=== PATIENT | male | born 1975 | race Caucasian/White ===

== ENCOUNTER 2019-05-05 06:15 | Emergency (ER) | payer BC, SELFPAY ==
[2019-05-05 06:16] VITALS: BP 137/103; PULSE 71; RESP 18; TEMP 36.3; O2SAT 98; BMI 29.5
--- NOTE | 2019-05-05 06:56 | CT_ITS ---
STUDY: CT ABDOMEN AND PELVIS WITHOUT CONTRAST REASON FOR EXAM: Male, 44 years old. Left flank pain radiating to left lower quadrant. RADIATION DOSAGE (If Supplied By Facility): CTDIvol = ( 11.42 ) mGy, DLP = ( 610.37 ) mGycm TECHNIQUE: Transaxial images were obtained from the dome of the diaphragm to the symphysis pubis without oral contrast, and without intravenous contrast. Sagittal and coronal images were reconstructed. Individualized dose optimization techniques were used for this CT. COMPARISON: None. FINDINGS: The visualized lung bases are unremarkable. The visualized portions of the heart are within normal limits. Normal liver. The portal vein diameter is 14.5 mm. A pair of 1 cm calcified stones are noted in the gallbladder. No thickening of the gallbladder wall nor pericholecystic fluid to suggest cholecystitis. The common bile duct diameter is 7 mm. There is mild splenomegaly, measuring 14.35 x 3.3 x 12.3 cm. Normal pancreas. Normal bilateral adrenal glands. Normal right kidney. There is mild left pelvocaliectasis due to a 1.4 x 0.65 x 0.95 cm stone at the ureteropelvic junction. Normal visualized stomach. Normal small intestine. Normal colon. The appendix is visualized and appears normal. There is very mild atherosclerotic calcification of the abdominal aorta and proximal iliac arteries, without a demonstrated aneurysm. Normal inferior vena cava. Normal retroperitoneum. Normal urinary bladder. There is a coarse central prostatic calcification. Normal abdominal wall. There are multilevel [id number] degenerative changes of the visualized spine, with anterolateral endplate osteophyte formation most prominent in the mid to lower thoracic levels and at L5-S1. There are well-corticated shallow invaginations of the inferior lumbar vertebral endplates, which may reflect benign Schmorl''s nodes. Benign-appearing focal sclerotic density noted in the superolateral margin of the right femoral head. CT/Abdomen/Pelvis without Cont IMPRESSION: 1. Mild left pelvocaliectasis due to 14 mm stone at the ureteropelvic junction. 2. Gallstones. No CT sign of acute cholecystitis. 3. Mild splenomegaly. 4. The bowel is unremarkable without signs of obstruction. The appendix is normal. Electronically Signed: Gonzales Kuhn MD at 7:41 EST , Service support ,
[2019-05-05] MEDS: Ondansetron 4 MG/2 ML Vial IV (07:06)
[2019-05-05] MEDS: Ketorolac 30 MG/ML Syringe IV (07:06)
[2019-05-05] MEDS: Morphine 4 MG/ML Syringe IV (07:07)
[2019-05-05] MEDS: 0.9% Normal Saline 1,000 ML 999 ML IV (07:07)
--- NOTE | 2019-05-05 07:07 | ED.DCSUM_ITS ---
History of Present Illness Chief Complaint: Flank Pain Informant: Patient - Abdominal Pain/Flank Pain Onset: Today Context: Sudden Onset Timing: Waxes and wanes Quality: Sharp, Stabbing Location: Left Flank Worsened by: Nothing Relieved by: Nothing - Nausea/Vomiting/Emesis GI Symptom: Nausea. Negative for: Vomiting Associated Symptoms: - - dark urine Narrative: Patient is a 44-year-old male with no known medical history presenting with l eft-sided flank pain. He states it woke him up from sleep at 0500. The pain is sharp and radiates into his lower abdomen. It waxes and wanes. Patient states he is never had pain like this before. He does not have a history of kidney stones. He states he has not seen a doctor in years and does not have any known medical diagnosis. Yesterday he was raking leaves and exerting himself significantly. When he was in the ER he urinated his urine was dark brown. Patient denies any other muscle aches or pains. He denies any vomiting but notes he does have nausea when the pain is severe. He denies any chest pain or shortness of breath. He denies any dysuria. Patient notes that a couple weeks ago he had a similar pain but it was just one episode of sharp pain that resolved spontaneously and never came back. Past Medical History - Allergies and Home Meds Allergies/Adverse Reactions: Allergies No Known Allergies Allergy (Verified 05/05/19 06:17) Past Medical History: None Surgical History: no surgical history Lives: Spouse/ Significant Other Smoking Status: Current every day smoker Alcohol: Occasional Drugs: None Review of Systems General: Denies: Chills, Fever, Sweats Eyes: Denies: Visual changes - bilaterally, Diplopia ENT: Denies: Rhinorrhea, Sore throat Cardiovascular: Denies: Chest pain, Palpitations Respiratory: Denies: Dyspnea, Cough, Dyspnea on exertion Gastrointestinal: Reports: Abdominal pain, Nausea. Denies: Vomiting, Diarrhea, Melena, Hematochezia Genitourinary: Denies: Dysuria, Hematuria, Frequency Musculoskeletal: Denies: Back pain, Extremity Pain Skin: Denies: Rash, Wounds Neurological: Denies: Headache, Weakness, Numbness Physical Exam Vital Signs/Narrative: Vital Signs Temp Pulse Resp BP Pulse Ox 05/05/19 06:16 97.3 F L 71 18 137/103 H 98 Inital Vital Signs reviewed: Yes General: Well nourished, Well developed, No Acute Distress Head: Normocephalic, Atraumatic Eyes: Perrl, EOMI ENT: Moist mucous membranes, No rhinorrhea Neck: Supple, Nontender Cardiovascular: Regular rate, Regular rhythm, No murmurs Respiratory: No distress, CTA bilaterally, Chest nontender Abdomen: Soft, Nondistended, Normal bowel sounds, Tender - Left-sided, Hypoactive bowel sounds. Negative for: Guarding, Rebound tenderness Back: Nontender, Normal Inspection, - - No reproducible back tenderness on exam. Negative for: CVA tenderness, Spinal tenderness Extremities: Nontender, No edema Skin: Normal color, No rash Neurological: Alert, Oriented x3, Cranial nerves II-XII grossly intact, Normal Strength, Normal Sensation Psychological: Normal affect, Normal Mood Diagnostic/Tx/Re-eval CT: Flank Clinical Impression(s) from Imaging Studies Abdomen/Pelvis CT 05/05/19 06:56 IMPRESSION: 1. Mild left pelvocaliectasis due to 14 mm stone at the ureteropelvic junction. 2. Gallstones. No CT sign of acute cholecystitis. 3. Mild splenomegaly. 4. The bowel is unremarkable without signs of obstruction. The appendix is normal. Electronically Signed: Gonzales Kuhn MD at 7:41 EST , Service support , Laboratory Data 05/05/19 05/05/19 05/05/19 06:40 06:55 06:55 WBC 11.1 H RBC 5.31 Hgb 16.1 Hct 46.2 MCV 87.0 MCH 30.3 MCHC 34.8 RDW Std Deviation 43.1 RDW Coeff of Brennan 13.6 Plt Count 253 MPV 10.6 Immature Gran % (Auto) 0.600 Neut % (Auto) 60.4 Lymph % (Auto) 23.6 [place] % (Auto) 10.0 Eos % (Auto) 4.7 Baso % (Auto) 0.7 Absolute Neuts (auto) 6.7 Absolute Lymphs (auto) 2.62 Nucleated RBC % 0 Sodium 141 Potassium 3.8 Chloride 111 H Carbon Dioxide 25.0 Anion Gap 5 BUN 21 H Creatinine 0.75 Estim Creat Clear Calc 127.00 Est GFR (MDRD) Af Amer 145 Est GFR (MDRD) Non-Af 120 BUN/Creatinine Ratio 27.9 H Glucose 106 Calcium 8.8 Total Creatine Kinase Urine Color [place] Urine Clarity Cloudy Urine pH 5.0 Ur Specific [place] 1.025 Urine Protein 100 H Urine Glucose (UA) Normal Urine Ketones 5 H Urine Occult Blood 250 H Urine Nitrite Positive H Urine Bilirubin Negative Urine Urobilinogen 1 H Ur Leukocyte Esterase 100 H Urine RBC 10-25 SEEN Urine WBC 5-10 SEEN Ur Squamous Epith Cells 0-5 SEEN Calcium Oxalate Crystal RARE Urine Bacteria 2+ Urine Mucus 2+ 05/05/19 06:55 WBC RBC Hgb Hct MCV MCH MCHC RDW Std Deviation RDW Coeff of Brennan Plt Count MPV Immature Gran % (Auto) Neut % (Auto) Lymph % (Auto) [place] % (Auto) Eos % (Auto) Baso % (Auto) Absolute Neuts (auto) Absolute Lymphs (auto) Nucleated RBC % Sodium Potassium Chloride Carbon Dioxide Anion Gap BUN Creatinine Estim Creat Clear Calc Est GFR (MDRD) Af Amer Est GFR (MDRD) Non-Af BUN/Creatinine Ratio Glucose Calcium Total Creatine Kinase 103 Urine Color Urine Clarity Urine pH Ur Specific [place] Urine Protein Urine Glucose (UA) Urine Ketones Urine Occult Blood Urine Nitrite Urine Bilirubin Urine Urobilinogen Ur Leukocyte Esterase Urine RBC Urine WBC Ur Squamous Epith Cells Calcium Oxalate Crystal Urine Bacteria Urine Mucus - Medical Decision Making Is evaluated for sudden onset of left leg pain. Is consistent with kidney stone with colic. Patient receives of very good pain control with 4 mg IV morphine and Toradol. Stone is quite large at 14 mm. His kidney function is normal. His white blood cell count is 11.1. Urinalysis does show nitrates and some leukoesterase. Because of the potential for an infected stone I did discuss with urology at [facility] as we currently do not have any urology services available. They reviewed the CT as well as information. I felt that as he is otherwise stable appearing with normal vital signs and afebrile he can be discharged home with oral antibiotics and outpatient follow-up tomorrow. Patient has good pain control and if he like this is appropriate. Patient is given first dose of Keflex in the emergency room. Urine culture sent. He is given [facility] for follow-up. He is given medications for pain control. He is counseled the importance of follow-up tomorrow as well as indications to return to the emergency room. Patient is counseled on signs and symptoms requiring return to the emergency room. Patient verbalizes agreement and understand this plan. Patient discharged home in stable and improved condition. ED Disposition - Plan for ED Patient: Disposition: Home or Assisted Living Diagnosis: UTI (urinary tract infection) Instructions: KIDNEY STONE w/ Colic Prescriptions: Tamsulosin HCl [Flomax] 0.4 mg PO DAILY #7 cap Prescription Printed Cephalexin [Keflex] 500 mg PO Q12 #14 cap Prescription Printed Ibuprofen [Motrin] 600 mg PO Q6H PRN PRN #20 tab PRN Reason: Pain/Inflammation Prescription Printed Oxycodone HCl/Acetaminophen [Percocet 5/325] 1 tab PO Q6H PRN PRN 3 Days #12 tab PRN Reason: Pain Prescription Printed Ondansetron [Zofran Odt] 4 mg PO Q8H PRN PRN #10 tab PRN Reason: Nausea Prescription Printed Additional Instructions: Please call Dr. Lowlel Harrell at [facility] tomorrow for same day follow up. Number is [phone]. Let them know that you were diagnosed with a 14 mm left stone with some signs of infection. You are started on antibiotics and told to follow-up the next day. Return to the emergency room with any worsening symptoms including fever. It is very important that you take your antibiotics.
[2019-05-05 07:08] LABS: Absolute Lymphocyte Count 2.62 X10^3/uL (0.83-4.51); Absolute Neutrophil Count 6.7 X10^3/uL (2.0-7.7); Basophil# 0.08 X10^3/uL; Basophil% 0.7 % (0-1); Eosinophil# 0.52 X10^3/uL; Eosinophils% 4.7 % (0-5); Hematocrit 46.2 % (40-54); Hemoglobin 16.1 g/dL (13.0-16.5); Lymphocyte # 2.62 X10^3/ul (4.0); Lymphocyte % 23.6 % (19-41); Mean Corp Hgb Conc 34.8 g/dL (32-36); Mean Corpuscular Hgb 30.3 pg (27.0-32.0); Mean Platelet Vol. 10.6 fl (6.2-12.0); Monocyte# 1.11 X10^3/uL; NRBC Flagged by Analyzer 0 % (0-5); Neutrophil # 6.68 X10^3/uL (2.7-7.7); Neutrophil % 60.4 % (47-70); Platelet Count 253 K/mm3 (150-450); RBC Distribution Width CV 13.6 % (11.6-14.6); RBC Distribution Width SD 43.1 fl (35.1-43.9); Red Blood Count 5.31 M/mm3 (4.6-6.2); White Blood Count 11.1 K/mm3 (4.4-11.0)
[2019-05-05 07:18] LABS: Anion Gap 5 (5-15); BUN 21 mg/dL (7-18); BUN/Creat Ratio 27.9 RATIO (10-20); Calcium,Total 8.8 mg/dL (8.5-10.1); Chloride 111 mmol/L (98-107); Creatinine, Serum 0.75 mg/dL (0.70-1.30); EST Glomerular Filtration Rate 120 mL/min (>60); Est Glom Filt Rate - Afr Amer 145 mL/min (>60); Glucose 106 mg/dL (74-106); Potassium 3.8 mmol/L (3.5-5.1); Sodium Level 141 mmol/L (136-145)
[2019-05-05 07:27] LABS: CPK Total, Creatine Kinase 103 U/L (39-308)
[2019-05-05 07:27] LABS: Color, Urine Amber (Yellow); Glucose, Dipstick Normal (Normal); Ketone-Dipstick 5 mg/dl (Negative); Leukocyte Esterase-Dipstick 100 /ul (Negative); Nitrite-Dipstick Positive (Negative); Occult Blood-Urine 250 /ul (Negative); Protein-Dipstick 100 mg/dl (Negative); Specific Gravity, Urine 1.025 (1.002-1.030); Urine Bilirubin Dipstick Negative (Negative); Urine Clarity Cloudy (Clear); Urine Urobilinogen 1 mg/dl (Normal)
[2019-05-05 07:37] LABS: White Blood Cells 5-10 SEEN /hpf (0-5)
[2019-05-05 07:38] LABS: Bacteria 2+ /hpf (None Seen); Calcium Oxalate Crystals Ur RARE /hpf (<or=2+); Mucous, Urine 2+ /hpf (<or=2+); Red Blood Cells-Urine 10-25 SEEN /hpf (0-5); Squamous Epithelial Cells - UA 0-5 SEEN /hpf (0-5)
[2019-05-05 08:18] VITALS: BP 126/76; PULSE 69; RESP 16; O2SAT 98
--- NOTE | 2019-05-05 08:43 | NURSING ---
DR LEDA KEITH
[2019-05-05] MEDS: Cephalexin 250 MG Capsule 500 MG PO (09:12)
[2019-05-05 09:33] VITALS: BP 130/88; PULSE 70; RESP 16; O2SAT 96
== END 2019-05-05 09:35 | disposition home or self-care (01) ==
PROVIDERS: Emergency Provider Emergency Medicine
DX: N39.0 Urinary tract infection, site not specified (principal); N20.1 Calculus of ureter; R16.1 Splenomegaly, not elsewhere classified; K80.20 Calculus of gallbladder without cholecystitis without obstruction; F17.200 Nicotine dependence, unspecified, uncomplicated; Z79.899 Other long term (current) drug therapy
CPT/HCPCS: 74176; 80048; 81001; 82550; 85025; 87086; 96361; 96374; 96375; 99284; J7030; A4216; J2405

== ENCOUNTER 2021-12-28 20:18 | Emergency (ER) | payer BC, SELFPAY ==
[2021-12-28 20:19] VITALS: BP 135/102; PULSE 82; RESP 18; TEMP 35.8; O2SAT 98; BMI 32.1
[2021-12-28 20:50] LABS: Absolute Lymphocyte Count 2.72 X10^3/uL (0.83-4.51); Absolute Neutrophil Count 7.7 X10^3/uL (2.0-7.7); Basophil# 0.08 X10^3/uL; Basophil% 0.6 % (0-1); Eosinophil# 0.56 X10^3/uL; Eosinophils% 4.5 % (0-5); Hematocrit 47.8 % (40-54); Hemoglobin 16.5 g/dL (13.0-16.5); Lymphocyte # 2.72 X10^3/ul (0.83-4.51); Mean Corp Hgb Conc 34.5 g/dL (32-36); Mean Corpuscular Hgb 30.3 pg (27.0-32.0); Mean Corpuscular Volume 87.7 fL (80-94); Mean Platelet Vol. 10.5 fl (6.2-12.0); Monocyte# 1.23 X10^3/uL; NRBC Flagged by Analyzer 0 % (0-5); Neutrophil # 7.68 X10^3/uL (2.7-7.7); Neutrophil % 62.2 % (47-70); Platelet Count 259 K/mm3 (150-450); RBC Distribution Width CV 13.4 % (11.6-14.6); RBC Distribution Width SD 42.6 fl (35.1-43.9); Red Blood Count 5.45 M/mm3 (4.6-6.2); White Blood Count 12.4 K/mm3 (4.4-11.0)
[2021-12-28 21:04] LABS: Anion Gap 7 (5-15); BUN 22 mg/dL (7-18); BUN/Creat Ratio 25.4 RATIO (10-20); Chloride 107 mmol/L (98-107); Creatinine, Serum 0.86 mg/dL (0.70-1.30); EST Glomerular Filtration Rate 101 mL/min (>60); Est Glom Filt Rate - Afr Amer 122 mL/min (>60); Estimated Creatinine Clearance 101.41 ml/min; Glucose 127 mg/dL (74-106); Potassium 3.7 mmol/L (3.5-5.1); Sodium Level 139 mmol/L (136-145)
[2021-12-28 21:16] LABS: Color, Urine Yellow (Yellow); Glucose, Dipstick Normal (Normal); Ketone-Dipstick 5 mg/dl (Negative); Leukocyte Esterase-Dipstick 25 /ul (Negative); Nitrite-Dipstick Negative (Negative); Occult Blood-Urine 250 /ul (Negative); Protein-Dipstick 15 mg/dl (Negative); Specific Gravity, Urine 1.025 (1.002-1.030); Urine Bilirubin Dipstick Negative (Negative); Urine Clarity Clear (Clear); Urine Urobilinogen 1 mg/dl (Normal)
[2021-12-28 21:31] LABS: Bacteria 1+ /hpf (None Seen); Red Blood Cells-Urine 50-100 SEEN /hpf (0-5); Squamous Epithelial Cells - UA 0-5 SEEN /hpf (0-5); White Blood Cells 0-5 SEEN /hpf (0-5)
[2021-12-28 21:32] LABS: Calcium Oxalate Crystals Ur 1+ /hpf (<or=2+); Mucous, Urine 1+ /hpf (<or=2+)
--- NOTE | 2021-12-28 22:06 | CT_ITS ---
INDICATION: left flank pain EXAMINATION: CT ABDOMEN AND PELVIS WITHOUT CONTRAST - CT Abdomen And Pelvis W/O Contrast Injection TECHNIQUE: Helically acquired images were obtained of the abdomen and pelvis without oral or IV contrast. A radiation dose optimization technique was used for this scan. IV Contrast dosage and agent: None. Oral contrast: None. COMPARISON: 05/05/2019 CT abdomen and pelvis FINDINGS: LOWER CHEST: Lung bases are clear. No cardiomegaly or pericardial effusion. LIVER: Homogeneous. No focal mass. GALLBLADDER AND BILIARY TREE: At least 2 gallbladder stones, the largest of which measures 12 mm, in the collapsed gallbladder No gallbladder distension or wall edema. No intra- or extrahepatic biliary ductal dilation. PANCREAS: No focal cystic or solid mass. SPLEEN: Normal size without focal cystic or solid mass. ADRENAL GLANDS: Left and right adrenal, subcentimeter nodule with macroscopic fat; adrenal adenomas. KIDNEYS, URETERS and BLADDER: Normal renal size and position. No mass. No hydronephrosis. Bladder is unremarkable. No genitourinary stone. PERITONEUM: No ascites or free air. No other fluid collection. BOWEL: No evidence of acute appendicitis. No abnormally distended bowel loops or air fluid levels. No wall thickening or mass. No focal inflammatory changes. LYMPH NODES: No enlarged mesenteric or retroperitoneal lymph nodes. VESSELS: Aorta is non-dilated. Mild atherosclerosis. REPRODUCTIVE ORGANS: Normal size prostate gland with few calcifications. ABDOMINAL WALL: No discrete abdominal or pelvic wall hernia. BONES: No lytic or blastic abnormality. CT/Abdomen/Pelvis without Cont IMPRESSION: Cholelithiasis without cholecystitis. These were present on the prior 2018 CT. No genitourinary stone. Bilateral subcentimeter adrenal adenomas. Electronically Signed: Enio Cordon DO at 23:02 EDT ,
--- NOTE | 2021-12-28 22:09 | EX.ED.GUMALE ---
HPI History of Present Illness Chief Complaint: Abd Pain Narrative Narrative: 46-year-old male presenting with right flank pain. He noted that he had some flank pain earlier in the day which resolved. He later in the day prior to arrival had some sharp flank pain which radiate to the inguinal area. He complains of dysuria and irritation. Patient states his pain is improved currently. He has a history of kidney stones. He has not had fever or chills. No nausea or vomiting. PFSH PFS Medical History Kidney stones Home Medications cephalexin 500 mg capsule 500 mg PO Q12 #14 caps 05/05/19 [Rx Last Taken Unknown] ibuprofen 600 mg tablet 600 mg PO Q6H PRN PRN Pain/Inflammation #20 tabs 05/05/19 [Rx Last Taken Unknown] ondansetron 4 mg disintegrating tablet 4 mg PO Q8H PRN PRN Nausea #10 tabs 05/05/19 [Rx Last Taken Unknown] tamsulosin 0.4 mg capsule 0.4 mg PO DAILY #7 caps 05/05/19 [Rx Last Taken Unknown] hydrocodone-acetaminophen 5-325mg 5mg-325mg 1 tab PO Q6H PRN pain 3 days #10 tabs 12/28/21 [Rx Last Taken Unknown] ondansetron 4 mg disintegrating tablet 4 mg PO Q8H PRN nausea and vomiting #10 tabs 12/28/21 [Rx Last Taken Unknown] Allergy/AdvReac Type Severity Reaction Status Date / Time No Known Allergies Allergy Verified 05/05/19 06:17 Social History Smoking Status: Never smoker ROS ROS ED Constitutional Constitutional ED: Denies chills or fever(s) Eyes Eyes: Denies change in vision ENT ENT ED: Denies rhinorrhea or sore throat Cardiovascular Cardiovascular: Denies chest pain or palpitations Respiratory/Chest Respiratory/Chest: Denies cough or dyspnea Gastrointestinal Gastrointestinal: Reports other Details: Right flank pain Genitourinary Genitourinary ED: Reports dysuria; Denies urinary frequency Musculoskeletal Musculoskeletal: Denies arthralgias Integumentary Denies abscess Neurologic Neurologic: Denies headache(s) Psychiatric Psychiatric: Denies anxiety or depression EXAM Physical Exam Const Vital Signs: 12/28/21 20:19 Temperature 96.5 F L Temperature Source Temporal Pulse Rate 82 Respiratory Rate 18 Blood Pressure 135/102 H Blood Pressure Mean 113 Pulse Ox 98 Oxygen Delivery Method Room Air Positive well nourished General Appearance ED: NAD; Negative for pallor HEENT Reports moist mucous membranes normocephalic and atraumatic Eyes PERRL and EOMs intact bilaterally Resp normal respiratory effort and clear to auscultation bilaterally Auscultation: Negative for rales, rhonchi or wheezes Cardio regular rate and regular rhythm GI non-tender and non-distended no CVA tenderness Neuro oriented x3 and CN's II-XII intact bilaterally Sensorium / Orientation: alert Motor Exam: strength 5/5 throughout Psych mental status grossly normal Thought Process: normal thought process Thought Content: normal thought content Skin General Skin Exam: Negative for jaundice or pallor MDM MDM MDM Narrative Medical decision making narrative: Patient states his pain is improved but he was given morphine, Toradol, Zofran at a concern that his pain come back. CBC shows a slight leukocytosis of 12.4. Hemoglobin medic are stable. Platelets normal. Renal function electrolytes within normal limits. Urinalysis shows occult blood without evidence of infection. CT of the pelvis without contrast does not show any kidney stones. There is some gallstones noted without any evidence of acute cholecystitis. Patient is not having right upper quadrant pain. I suspect patient likely passed his kidney stone. I will cover him with Zofran and [place] as needed for pain as he still continues to have intermittent pain. He is can follow-up with urology. Patient stable for discharge at this time. Impression: 1. Right flank pain 2. Dysuria 3. Hematuria Lab Data Attestation: I reviewed the patient's lab results. Labs: Laboratory Results - last 24 hr 12/28/21 12/28/21 12/28/21 20:29 20:46 20:46 WBC 12.4 H RBC 5.45 Hgb 16.5 Hct 47.8 MCV 87.7 MCH 30.3 MCHC 34.5 RDW Std Deviation 42.6 RDW Coeff of [place] 13.4 Plt Count 259 MPV 10.5 Immature Gran % (Auto) 0.700 Neut % (Auto) 62.2 Lymph % (Auto) 22.0 [place] % (Auto) 10.0 Eos % (Auto) 4.5 Baso % (Auto) 0.6 Absolute Neuts (auto) 7.7 Absolute Lymphs (auto) 2.72 Nucleated RBC % 0 Sodium 139 Potassium 3.7 Chloride 107 Carbon Dioxide 25.0 Anion Gap 7 BUN 22 H Creatinine 0.86 Estim Creat Clear Calc 101.41 Est GFR (MDRD) Af Amer 122 Est GFR (MDRD) Non-Af 101 BUN/Creatinine Ratio 25.4 H Glucose 127 H Calcium 9.0 Urine Color Yellow Urine Clarity Clear Urine pH 5.0 Ur Specific [place] 1.025 Urine Protein 15 H Urine Glucose (UA) Normal Urine Ketones 5 H Urine Occult Blood 250 H Urine Nitrite Negative Urine Bilirubin Negative Urine Urobilinogen 1 H Ur Leukocyte Esterase 25 H Urine RBC 50-100 SEEN Urine WBC 0-5 SEEN Ur Squamous Epith Cells 0-5 SEEN Calcium Oxalate Crystal 1+ Urine Bacteria 1+ Urine Mucus 1+ Radiography Diagnostic Testing: Clinical Impression(s) from Imaging Studies Abdomen/Pelvis CT 12/28/21 22:06 IMPRESSION: Cholelithiasis without cholecystitis. These were present on the prior 2018 CT. No genitourinary stone. Bilateral subcentimeter adrenal adenomas. Electronically Signed: Enio Cordon DO at 23:02 EDT , Discharge Plan Triage Chief Complaint: Abd Pain ED Provider: Isiah Montanez Dx/Rx/DC Orders Instructions: ED Kidney Stone, Passed Prescriptions: New hydrocodone-acetaminophen 5-325 mg tablet 1 tab PO Q6H PRN (Reason: pain) 3 Days Qty: 10 0RF ondansetron 4 mg tablet,disintegrating 4 mg PO Q8H PRN (Reason: nausea and vomiting) Qty: 10 0RF No Action cephalexin 500 MG capsule 500 mg PO Q12 Qty: 14 0RF tamsulosin 0.4 MG capsule 0.4 mg PO DAILY Qty: 7 0RF ondansetron 4 MG tablet 4 mg PO Q8H PRN PRN (Reason: Nausea) Qty: 10 0RF ibuprofen 600 MG tablet 600 mg PO Q6H PRN PRN (Reason: Pain/Inflammation) Qty: 20 0RF Primary Care Provider: Care Physician,No Primary Referrals: Robby Tony MD [Med Staff - Active Staff] - 3-5 Days Care Physician,No Primary [Primary Care Provider] - Disposition Disposition: Home, Self Care
[2021-12-28] MEDS: Ketorolac 15 MG/ML Vial IV (22:22)
[2021-12-28] MEDS: Ondansetron 4 MG/2 ML Vial IV (22:22)
[2021-12-28] MEDS: Morphine 4 MG/ML Syringe IV (22:22)
== END 2021-12-28 23:35 | disposition home or self-care (01) ==
PROVIDERS: Emergency Provider Student in an Organized Health Care Education/Training Program; Visit Provider Student in an Organized Health Care Education/Training Program
DX: R10.9 Unspecified abdominal pain (principal); R30.0 Dysuria; R31.9 Hematuria, unspecified; K80.20 Calculus of gallbladder without cholecystitis without obstruction; Z79.899 Other long term (current) drug therapy; Z87.442 Personal history of urinary calculi
CPT/HCPCS: 74176; 80048; 81001; 85025; 96374; 96375; 99282; A4216; J2405

== ENCOUNTER 2025-02-20 19:33 | Emergency (ER) | payer BC, SELFPAY ==
[2025-02-20 19:34] VITALS: BP 141/90; PULSE 73; RESP 16; TEMP 37; O2SAT 97; BMI 34.2
[2025-02-20 19:50] LABS: Mucous, Urine 0 SEEN /hpf (<or=2+)
[2025-02-20 19:59] LABS: Color, Urine Yellow (Yellow); Glucose, Dipstick Normal (Normal); Ketone-Dipstick Negative (Negative); Leukocyte Esterase-Dipstick 25 /ul (Negative); Nitrite-Dipstick Negative (Negative); Occult Blood-Urine 150 /ul (Negative); Protein-Dipstick 30 mg/dl (Negative); Specific Gravity, Urine 1.030 (1.002-1.030); Urine Bilirubin Dipstick Negative (Negative)
[2025-02-20 20:06] LABS: Hematocrit 47.4 % (40-54); Hemoglobin 16.8 g/dL (13.0-16.5); Immature Granulocytes Count 0.050 X10^3/uL (0.0-0.0); Mean Corp Hgb Conc 35.4 g/dL (32-36); Mean Corpuscular Volume 87.8 fL (80-94); Mean Platelet Vol. 10.4 fl (6.2-12.0); NRBC Flagged by Analyzer 0 % (0-5); Platelet Count 276 K/mm3 (150-450); RBC Distribution Width CV 13.4 % (11.6-14.6); RBC Distribution Width SD 42.7 fl (35.1-43.9); Red Blood Count 5.40 M/mm3 (4.6-6.2); White Blood Count 10.1 K/mm3 (4.4-11.0)
[2025-02-20 20:22] LABS: Red Blood Cells-Urine 5-10 SEEN /hpf (0-5)
[2025-02-20 20:23] LABS: Squamous Epithelial Cells - UA 0-5 SEEN /hpf (0-5)
[2025-02-20 20:24] LABS: Calcium Oxalate Crystals Ur 1+ /hpf (<or=2+)
[2025-02-20 20:39] LABS: AST(SGOT) 25 U/L (<=37); Alanine Aminotransfer ALT/SGPT 41 U/L (<=46); Albumin, Serum 4.7 g/dL (3.5-5.0); Alkaline Phosphatase 82 U/L (40-129); Anion Gap 12 (5-15); BUN 20 mg/dL (4-19); BUN/Creat Ratio 23.6 RATIO (10-20); Calcium,Total 9.4 mg/dL (7.6-11.0); Carbon Dioxide 19.7 mmol/L (21.0-32.0); Chloride 105 mmol/L (98-108); Estimated Creatinine Clearance 117.81 ml/min (50-250); Globulin 2.5 g/dL (2.2-4.2); Glucose 144 mg/dL (70-99); Potassium 4.1 mmol/L (3.3-5.1)
--- OUTSIDE RECORDS SUMMARY | 2025-02-20 20:42 | XMS RPT_ITS | CCD ---
Author Organization [facility] Care Team Providers Care Straight Line Edger Name Role Phone LILIANA CONNER MD Primary Care Physician LILIANA CONNER MD Primary Care Unavailable KENNETH MACDONALD MD Attending Unavailable LILIANA CONNER MD Attending Unavailable LILIANA CONNER MD Primary Care Unavailable LILIANA CONNER MD Attending Unavailable LILIANA CONNER MD Primary Care Unavailable LILIANA CONNER MD Primary Care Unavailable LILIANA CONNER MD Attending Unavailable KENNETH MACDONALD MD Consulting Unavailable KENNETH MACDONALD MD Attending Unavailable LILIANA CONNER MD Primary Care Unavailable LILIANA CONNER MD Primary Care Unavailable LILIANA CONNER MD Attending Unavailable LILIANA CONNER MD Primary Care Unavailable KENNETH MACDONALD MD Attending Unavailable LILIANA CONNER MD Primary Care Unavailable KENNETH MACDONALD MD Consulting Unavailable KENNETH MACDONALD MD Attending Unavailable LILIANA CONNER MD Attending Unavailable LILIANA CONNER MD Primary Care Unavailable Medications Current Medications Medication Drug Class(es) Dates Sig (Normalized) Sig (Original) acetaminophen 325 mg / HYDROcodone bitartrate 5 mg oral tablet (3 sources) Opioid Agonist Start: 10-24-2024 End: 10-31-2024 Fayette 325- 5 mg oral tablet Dose = 1 tab(s), Oral, q4h, PRN Pain, scale 4-6, X 7 day(s), # 12 tab(s), 0 Refill(s), Pharmacy: [facility]/pharmacy #[id number], Acute post-operative pain, 170, cm, 10/24/24 8:32:00 EDT, Height, 95.5, kg, 10/24/24 8:32:00 EDT, Dosing Weight Start Date: 10/24/24 Stop Date: 10/31/24 Status: Ordered Quantity: 12.0 Unit: tab(s) Repeat number: 1 Indications: Other acute postprocedural pain; Start: 06-22-2023 End: 06-27-2023 Fayette 325- 5 mg oral tablet Dose = 1 tab(s), Oral, q4h, PRN Pain, scale 1-6, X 5 day(s), # 12 tab(s), 0 Refill(s), Pharmacy: [facility]/pharmacy #[id number], Acute post-operative pain, 172.7, cm, 06/22/23 6:25:00 EST, Height, 95.4, kg, 06/22/23 6:25:00 EST, Dosing Weight Start Date: 06/22/23 Stop Date: 06/27/23 Status: Ordered Start: 12-28-2021 take 1 tablet by owen th every six hours Hydrocodone-Acetaminophen Active 1 TABLET PO EVERY 6 HOURS 10 December 28, 2021 cephalexin 500 mg oral capsule (1 source) Cephalosporin Antibacterial Start: 05-05-2019 take 500 mg by mouth every twelve hours Cephalexin Active 500 MG PO EVERY 12 HOURS May 05, 2019 1:00am ibuprofen 600 mg oral tablet (1 source) Nonsteroidal Anti-inflammatory Drug Start: 05-05-2019 take 600 mg by mouth every six hours as needed Ibuprofen Active 600 MG PO EVERY 6 HOURS NEEDED May 05, 2019 1:00am ondansetron 4 mg disintegrating oral tablet (2 sources) Serotonin-3 Receptor Antagonist Start: 05-05-2019 take 4 mg by mouth every eight hours Ondansetron Active 4 MG PO Q8H December 28, 2021 12:00am pantoprazole 40 mg delayed release oral tablet (3 sources) Proton Pump Inhibitor Start: 04-11-2023 pantoprazole 40 mg oral enteric coated tablet Dose : 40 mg = 1 tab(s), Oral, qDay, # 30 tab(s), 5 Refill(s), Pharmacy: [facility]/pharmacy #[id number], Abdominal pain Abdominal distention, 173, cm, 03/07/23 15:02:00 EDT, Height, kg, 03/07/23 15:02:00 EDT, Dosing Weight Start Date: 04/11/23 Status: Ordered Start: 03-07-2023 pantoprazole 4 0 mg oral enteric coated tablet Dose : 40 mg = 1 tab(s), Oral, qDay, # 30 tab(s), 0 Refill(s), Pharmacy: [facility]/pharmacy #[id number], Abdominal pain Abdominal distention, 173, cm, 03/07/23 15:02:00 EDT, Height, kg, 03/07/23 15:02:00 EDT, Dosing Weight Start Date: 03/07/23 Status: Ordered sulfamethoxazole 800 mg / trimethoprim 160 mg oral tablet (1 source) Dihydrofolate Reductase Inhibitor Antibacterial, Sulfonamide Antimicrobial Start: 02-07-2025 End: 02-17-2025 take 1 tablet by mouth twice daily Bactrim DS 800 mg-160 mg oral tablet Dose = 1 tab(s), Oral, BID, X 10 day(s), # 20 tab(s), 0 Refill(s), [id number], 170, cm, 02/07/25 15:04:00 EDT, Height, 100.1, kg, 02/07/25 15:04:00 EDT, Dosing Weight Start Date: 02/07/25 Stop Date: 02/17/25 Status: Ordered Medication Dispense Status: Completed Quantity: 20.0 Unit: tab(s) Total Allowed Fills: 1 Fills Dispensed: 0 Indications: Urinary tract infection, site not specified; Hematuria, unspecified; tamsulosin hydrochloride 0.4 mg oral capsule (1 source) alpha-Adrenergic Tyler Start: 05-05-2019 take 0.4 mg by mouth once daily Tamsulosin Active 0.4 MG PO DAILY May 05, 2019 1:00am Completed/Discontinued Medications Medication Drug Class(es) Dates Sig (Normalized) Sig (Original) acetaminophen 325 mg / oxyCODONE hydrochloride 5 mg oral tablet (1 source) Opioid Agonist Start: 05-05-2019 End: 05-15-2019 take 1 tablet by mouth every six hours as needed Oxycodone-Acetamino phen Discontinued 1 TABLET PO EVERY 6 HOURS NEEDED 04 30May 05, 2019 May 15, 2019 1:10am Problems Active Problems Problem Classification Problem Date Documented Da te Episodic/Chronic Abdominal pain (7 sources) Abdominal pain 03-07-2023 Episodic Biliary tract disease (6 sources) Biliary dyskinesia 05-11-2023 Episodic Calculus of urinary tract (8 sources) Renal colic; Translations: [Unspecified renal colic] 03-07-2023 Episodic Esophageal disorders (2 sources) Gastro-esophageal reflux disease without esophagitis; Translations: [Gastro-esophageal reflux disease without esophagitis] Onset: 09-23-2024 Chronic Genitourinary symptoms and ill-defined conditions (3 sources) Blood in urine; Translations: [Unspecified symptoms and signs involving the genitourinary system] Onset: 02-07-2025 02-07-2025 Episodic Nutritional deficiencies (3 sources) Vitamin D deficiency 10-03-2024 Chronic Other gastrointestinal disorders (7 sources) Swollen abdomen 03-07-2023 Episodic Other nervous system disorders (2 sources) Postoperative pain ; Translations: [Other acute postprocedural pain] Onset: 06-22-2023 Episodic Other nutritional; endocrine; and metabolic disorders (4 sources) Obesity 09-13-2024 Chronic Spondylosis; intervertebral disc disorders; other back problems (3 sources) Low back pain 10-03-2024 Episodic Unclassified (6 sources) Patient encounter status 06-13-2023 Urinary tract infections (2 sources) Urinary tract infectious disease; Translations: [Urinary tract infection, site not specified] 02-07-2025 Episodic Past or Other Problems Problem Classification Problem Date Documented Date Episodic/Chronic Hemorrhoids (13 sources) External hemorrhoids; Translations: [Thrombosed hemorrhoids] Onset: 09-23-2024 04-29-2022 Episodic Inflammatory conditions of male genital organs (9 sources) Prostatitis; Translations: [Inflammatory disease of prostate, unspecified] Onset: 09-23-2024 04-29-2022 Episodic Other nervous system disorders (1 source) Other acute postprocedural pain; Translations: [Other acute postprocedural pain] Onset: 10-24-2024 Episodic Results Test Name Value Interpretation Reference Range Facility No Panel Informationon 02-07 Culture Urine No growth at 48 hours. [facility] Final Surgical Pathology Rep santos 10-28-2024 Final Surgical Pathology Report . Pathology Reports Accession: Collected Date/Time: Received Date/Time: Pathologist: [id number] 10/24/2024 10:27 EDT 10/25/2024 08:12 EDT MD ISAIAH HUMMEL Final Surgical Pathology Report DIAGNOSIS: PERIANAL TISSUE, EXCISION: - HEMORRHOID CLINICAL INFORMATION: Procedure: HEMORRHOIDECTOMY Preoperative diagnosis: HEMORRHOIDS Postoperative diagnosis: HEMORRHOIDS SPECIMEN: A HEMORRHOIDS GROSS DESCRIPTION: All parts labelled with patient name and [id number] Received in formalin labelled hemorrhoids Is a maldonado-holliday wrinkled skin excision measuring 2.5 x 2.1 x 1 cm. Excision margin inked black sectioning reveals hemorrhagic cut surfaces with dilated vasculature. RS-1 Alex Rasheed, Pathologists' Clinical Counselor (ASCP) Performed by ALEX RASHEED MICROSCOPIC DESCRIPTION: The microscopic examination is performed, except in the case of Gross Only. Verified by Pathology Report verified by [facility] ISAIAH HUMMEL MD Sign out Date: 10/28/2024 13:27 Performing Lab: [facility], [address] [place] [address] Pathology Dept Disclaimer If ancillary studies were utilized, the following Laboratory Developed Test (LDT) disclaimer will apply: Under CLIA requirements, [facility] Pathology Laboratory is qualified to perform high complexity testing. For all ancillary stains, positive and negative controls stain appropriately. Performance characteristics of immunohistochemical and chromogenic in-situ hybridization tests have been determined by [facility] Pathology Laboratory. These tests are used for clinical purposes, They should not be regarded as investigational or for research. Normal [facility] .Auto Diffon 09-23-2024 Basophil, Absolute 0.1 10 3/mcL Normal 0.0-0.3 [facility] Comment on above: Performed By: #### C MP, ANEU, PSA, ADIFF, VIDH, GFR, A1C, LIPID, CBC #### [address] [address] Basophils/100 WBC (Bld) 1.1 % Normal 0.0-2.5 [facility] Comment on above: Performed By: #### C MP, ANEU, PSA, ADIFF, VIDH, GFR, A1C, LIPID, CBC #### [id number] [place], [place] [address] Eosinophil, Absolute 0.3 10 3/mcL Normal 0.0-0.7 [facility] Comment on above: Performed By: #### C MP, ANEU, PSA, ADIFF, VIDH, GFR, A1C, LIPID, CBC #### [address] [address] Eosinophils/100 WBC (Bld) 3.1 % Normal 0.0-6.0 [facility] Comment on above: Performed By: #### C MP, ANEU, PSA, ADIFF, VIDH, GFR, A1C, LIPID, CBC #### [address] [address] Lymphocyte, Absolute 2.3 10 3/mcL Normal 0.9-4.3 [facility] Comment on above: Performed By: #### C MP, ANEU, PSA, ADIFF, VIDH, GFR, A1C, LIPID, CBC #### [address] [address] Lymphocytes/100 WBC (Bld) 21.9 % Normal 20.0-40.0 [facility] Comment on above: Performed By: #### C MP, ANEU, PSA, ADIFF, VIDH, GFR, A1C, LIPID, CBC #### [address] [address] Monocyte, Absolute 1.1 10 3/mcL Normal 0.1-1.4 [facility] Comment on above: Performed By: #### C MP, ANEU, PSA, ADIFF, VIDH, GFR, A1C, LIPID, CBC #### [address] [address] Monocytes/100 WBC (Bld) 10.2 % Normal 2.0-13.0 [facility] Comment on above: Performed By: #### C MP, ANEU, PSA, ADIFF, VIDH, GFR, A1C, LIPID, CBC #### [address] [address] Neutrophils/100 WBC (Bld) 63.7 % Normal 50.0-75.0 [facility] Comment on above: Performed By: #### C MP, ANEU, PSA, ADIFF, VIDH, GFR, A1C, LIPID, CBC #### [address] [address] .GFRon 09-23-2024 Estimated Glomerular Filtration Rate 106 ml/min/1.73sqm Normal [facility] Comment on above: Result Comment: Stages of Chronic Kidney Disease (CKD) Stage Description eGFR(ml/min/1.73 sq.m.) CKD 1 Normal kidney function or >=90 normal kindney function with possible kidney damage (ex. Proteinuria) CKD 2 Kidney damage with mild loss 60-89 of kidney function CKD 3a Mild to moderate loss of kidney 45-59 function CKD 3b Moderate to severe loss of 30-44 of kindey function CKD 4 Severe loss of kidney function 15-29 CKD 5 Kidney failure <15 Note: (go live 2024) the eGFR calculation was updated to the 2020 CKD-EPI creatinine equation without a race factor to calculate the eGFR results. Performed By: #### C MP, ANEU, PSA, ADIFF, VIDH, GFR, A1C, LIPID, CBC #### [address] [address] .NEUABSon 09-23-2024 Neutrophil, Absolute 6.7 10 3/mcL Normal 2.3-8.1 [facility] Comment on above: Performed By: #### C MP, ANEU, PSA, ADIFF, VIDH, GFR, A1C, LIPID, CBC #### [address] [address] A1Con 09-23-2024 Glucose [Mass/Vol] 111 mg/dL Normal [facility] Comment on above: Result Comment: Yee mated Average Glucose calculated by equation ((28.7xA1C)-46.7) Estimated average glucose (eAG) is a calculated value from Hemoglobin A1C and is automotive sales representative of the average blood glucose level in the last 2-3 month period. Normal range: less than 114 mg/dL Performed By: #### C MP, ANEU, PSA, ADIFF, VIDH, GFR, A1C, LIPID, CBC #### [address] [address] HbA1c (Bld) [Mass fraction] 5.5 % Normal 4.3-6.4 [facility] Comment on above: Performed By: #### C MP, ANEU, PSA, ADIFF, VIDH, GFR, A1C, LIPID, CBC #### [address] [address] CBCon 09-23-2024 Erythrocyte distribution width (RBC) [Ratio] 14.0 % Normal 11.5-15.5 [facility] Comment on above: Performed By: #### C MP, ANEU, PSA, ADIFF, VIDH, GFR, A1C, LIPID, CBC #### [address] [address] Hematocrit (Bld) [Volume fraction] 49.7 % Normal 40.0-52.0 [facility] Comment on above: Performed By: #### C MP, ANEU, PSA, ADIFF, VIDH, GFR, A1C, LIPID, CBC #### [address] [address] Hgb 16.8 G/dL Normal 13.0-17.5 [facility] Comment on above: Performed By: #### C MP, ANEU, PSA, ADIFF, VIDH, GFR, A1C, LIPID, CBC #### [address] [address] MCH (RBC) [Entitic mass] 30.5 pg Normal 27.0-33.0 [facility] Comment on above: Performed By: #### C MP, ANEU, PSA, ADIFF, VIDH, GFR, A1C, LIPID, CBC #### [address] [address] MCHC 33.9 G/dL Normal 32.0-36.0 [facility] Comment on above: Performed By: #### C MP, ANEU, PSA, ADIFF, VIDH, GFR, A1C, LIPID, CBC #### [address] [address] MCV (RBC) [Entitic vol] 89.9 fL Normal 81.0-100.0 [facility] Comment on above: Performed By: #### C MP, ANEU, PSA, ADIFF, VIDH, GFR, A1C, LIPID, CBC #### [address] [address] Platelet 249 10 3/mcL Normal 150-450 [facility] Comment on above: Performed By: #### C MP, ANEU, PSA, ADIFF, VIDH, GFR, A1C, LIPID, CBC #### [address] [address] Platelet mean volume (Bld) [Entitic vol] 9.3 fL Normal 6.4-10.5 [facility] Comment on above: Performed By: #### C MP, ANEU, PSA, ADIFF, VIDH, GFR, A1C, LIPID, CBC #### [address] [address] RBC 5.53 10 6/mcL Normal 4.50-6.00 [facility] Comment on above: Performed By: #### C MP, ANEU, PSA, ADIFF, VIDH, GFR, A1C, LIPID, CBC #### [address] [address] WBC 10.5 10 3/mcL Normal 4.5-10.8 [facility] Comment on above: Performed By: #### C MP, ANEU, PSA, ADIFF, VIDH, GFR, A1C, LIPID, CBC #### [address] [address] CMPon 09-23-2024 Albumin Level 4.6 G/dL Normal 3.5-5.0 [facility] Comment on above: Performed By: #### C MP, ANEU, PSA, ADIFF, VIDH, GFR, A1C, LIPID, CBC #### [address] [address] Albumin/Globulin [Mass ratio] 1.4 {ratio} Normal 1.1-2.5 [facility] Comment on above: Performed By: #### C MP, ANEU, PSA, ADIFF, VIDH, GFR, A1C, LIPID, CBC #### [address] [address] ALP [Catalytic activity/Vol] 87 U/L Normal 40-135 [facility] Comment on above: Performed By: #### C MP, ANEU, PSA, ADIFF, VIDH, GFR, A1C, LIPID, CBC #### [address] [address] ALT [Catalytic activity/Vol] 42 U/L Normal 16-63 [facility] Comment on above: Performed By: #### C MP, ANEU, PSA, ADIFF, VIDH, GFR, A1C, LIPID, CBC #### [address] [address] AST [Catalytic activity/Vol] 18 U/L Normal 10-40 [facility] Comment on above: Performed By: #### C MP, ANEU, PSA, ADIFF, VIDH, GFR, A1C, LIPID, CBC #### [address] [address] Bili Total 0.4 mg/dL Normal 0.2-1.0 [facility] Comment on above: Result Comment: Use of this assay is not recommended for patients undergoing treatment with eltrombopag due to the potential for falsely elevated results. Performed By: #### C MP, ANEU, PSA, ADIFF, VIDH, GFR, A1C, LIPID, CBC #### [address] [address] BUN/Creatinine Ratio 22 ratio Normal 7-27 [facility] Comment on above: Performed By: #### C MP, ANEU, PSA, ADIFF, VIDH, GFR, A1C, LIPID, CBC #### [address] [address] Calcium [Mass/Vol] 9.1 mg/dL Normal 8.4-10.2 [facility] Comment on above: Performed By: #### C MP, ANEU, PSA, ADIFF, VIDH, GFR, A1C, LIPID, CBC #### [address] [address] Chloride [Moles/Vol] 104 mmol/L Normal 98-107 [facility] Comment on above: Performed By: #### C MP, ANEU, PSA, ADIFF, VIDH, GFR, A1C, LIPID, CBC #### [address] [address] CO2 [Moles/Vol] 26 mmol/L Normal 22-29 [facility] Comment on above: Performed By: #### C MP, ANEU, PSA, ADIFF, VIDH, GFR, A1C, LIPID, CBC #### [address] [address] Creatinine [Mass/Vol] 0.87 mg/dL Normal 0.67-1.17 [facility] Comment on above: Performed By: #### C MP, ANEU, PSA, ADIFF, VIDH, GFR, A1C, LIPID, CBC #### [address] [address] Electrolyte Balance 7.0 mEq/L Normal 4.0-15.0 [facility] Comment on above: Performed By: #### C MP, ANEU, PSA, ADIFF, VIDH, GFR, A1C, LIPID, CBC #### [address] [address] Globulin 3.3 G/dL Normal 2.7-4.4 [facility] Comment on above: Performed By: #### C MP, ANEU, PSA, ADIFF, VIDH, GFR, A1C, LIPID, CBC #### [address] [address] Glucose [Mass/Vol] 95 mg/dL Normal 70-105 [facility] Comment on above: Performed By: #### C MP, ANEU, PSA, ADIFF, VIDH, GFR, A1C, LIPID, CBC #### [address] [address] Potassium [Moles/Vol] 4.3 mmol/L Normal 3.5-5.1 [facility] Comment on above: Performed By: #### C MP, ANEU, PSA, ADIFF, VIDH, GFR, A1C, LIPID, CBC #### [address] [address] Sodium [Moles/Vol] 137 mmol/L Normal 136-145 [facility] Comment on above: Performed By: #### C MP, ANEU, PSA, ADIFF, VIDH, GFR, A1C, LIPID, CBC #### [address] [place], [place] [address] Total Protein 7.9 G/dL Normal 6.4-8.2 [facility] Comment on above: Performed By: #### C MP, ANEU, PSA, ADIFF, VIDH, GFR, A1C, LIPID, CBC #### [id number] [place], [place] [address] Urea nitrogen [Mass/Vol] 19 mg/dL High 7-18 [facility] Comment on above: Performed By: #### C MP, ANEU, PSA, ADIFF, VIDH, GFR, A1C, LIPID, CBC #### [id number] [place], [place] [address] LABORATORYOrdered By: SYSTEM SYSTEM on 09-23-2024 25-hydroxyvitamin D3 [Mass/Vol] 19.5 ng/mL Invalid Interpretation Code AO ADM SS Comment on above: Interpretive Data: I nterpretive Values Based on Total 25(OH) Vitamin D: Deficient <20 ng/mL Insufficient 20 - <30 ng/mL Sufficient 30-100 ng/mL Albumin BCP dye [Mass/Vol] 4.6 G/dL Normal 3.5 - 5.0 G/dL AO ADM SS Albumin/Globulin [Mass ratio] 1.4 {ratio} Normal 1.1 - 2.5 ratio AO ADM SS ALP [Catalytic activity/Vol] 87 U/L Normal 40 - 135 U/L AO ADM SS ALT With P-5'-P [Catalytic activity/Vol] 42 U/L Normal 16 - 63 U/L AO ADM SS AST With P-5'-P [Catalytic activity/Vol] 18 U/L Normal 10 - 40 U/L AO ADM SS Basophils (Bld) [#/Vol] 0.1 103/mcL Normal 0.0 - 0.3 10^3/mcL AO Workflow SS Basophils/100 WBC (Bld) 1.1 % Normal 0.0 - 2.5 % AO Workflow SS Bilirubin [Mass/Vol] 0.4 mg/dL Normal 0.2 - 1 .0 mg/dL AO ADM SS Comment on above: Interpretive Data: U se of this assay is not recommended for patients undergoing treatment with eltrombopag due to the potential for falsely elevated results. Calcium [Mass/Vol] 9.1 mg/dL Normal 8.4 - 10. 2 mg/dL AO ADM SS Chloride [Moles/Vol] 104 mmol/L Normal 98 - 10 7 mmol/L AO ADM SS CO2 [Moles/Vol] 26 mmol/L Normal 22 - 29 mmol/L AO ADM SS Creatinine [Mass/Vol] 0.87 mg/dL Normal 0.67 - 1.17 mg/dL AO ADM SS Electrolyte Balance 7.0 mEq/L Normal 4.0 - 15 .0 mEq/L AO ADM SS Eosinophil, Absolute 0.3 103/mcL Normal 0.0 - 0 .7 10^3/mcL AO Workflow SS Eosinophils/100 WBC (Bld) 3.1 % Normal 0.0 - 6.0 % AO Workflow SS Erythrocyte distribution width (RBC) [Ratio] 14.0 % Normal 11.5 - 15.5 % AO Workflow SS Estimated Glomerular Filtration Rate 106 ml/min/1.73sqm Invalid Interpretation Code AO Chemistry S Comment on above: Interpretive Data: Stages of Chronic Kidney Disease (CKD) Stage Description eGFR(ml/min/1.73 sq.m.) CKD 1 Normal kidney function or >=90 normal kindney function with possible kidney damage (ex. Proteinuria) CKD 2 Kidney damage with mild loss 60-89 of kidney function CKD 3a Mild to moderate loss of kidney 45-59 function CKD 3b Moderate to severe loss of 30-44 of kindey function CKD 4 Severe loss of kidney function 15-29 CKD 5 Kidney failure <15 Note: (go live 2024) the eGFR calculation was updated to the 2020 CKD-EPI creatinine equation without a race factor to calculate the eGFR results. Globulin 3.3 G/dL Normal 2.7 - 4.4 G/dL AO ADM SS Glucose [Mass/Vol] 95 mg/dL Normal 70 - 105 mg/dL AO ADM SS Glucose [Mass/Vol] 111 mg/dL Invalid Interpretation Code AO Chemistry S Comment on above: Interpretive Data: E stimated average glucose (eAG) is a calculated value from Hemoglobin A1C and is automotive sales representative of the average blood glucose level in the last 2-3 month period. Normal range: less than 114 mg/dL HbA1c (Bld) [Mass fraction] 5.5 % Normal 4.3 - 6.4 % AO ADM SS Hematocrit (Bld) [Volume fraction] 49.7 % Normal 40.0 - 52.0 % AO Workflow SS Hemoglobin (Bld) [Mass/Vol] 16.8 G/dL Normal 13.0 - 17.5 G/dL AO Workflow SS Lymphocytes (Bld) [#/Vol] 2.3 103/mcL Normal 0.9 - 4.3 10^3/mcL AO Workflow SS Lymphocytes/100 WBC (Bld) 21.9 % Normal 20.0 - 40.0 % AO Workflow SS MCH (RBC) [Entitic mass] 30.5 pg Normal 27.0 - 33.0 pg AO Workflow SS MCHC 33.9 G/dL Normal 32.0 - 36.0 G/dL AO Workflow SS MCV (RBC) [Entitic vol] 89.9 fL Normal 81.0 - 100.0 fL AO Workflow SS Monocytes (Bld) [#/Vol] 1.1 103/mcL Normal 0.1 - 1.4 10^3/mcL AO Workflow SS Monocytes/100 WBC (Bld) 10.2 % Normal 2.0 - 13.0 % AO Workflow SS Neutrophils (Bld) [#/Vol] 6.7 103/mcL Normal 2.3 - 8.1 10^3/mcL AO Workflow SS Neutrophils/100 WBC (Bld) 63.7 % Normal 50.0 - 75.0 % AO Workflow SS Platelet mean volume (Bld) [Entitic vol] 9.3 fL Normal 6.4 - 10.5 fL AO Workflow SS Platelets (Bld) [#/Vol] 249 103/mcL Normal 150 - 450 10^3/mcL AO Workflow SS Potassium [Moles/Vol] 4.3 mmol/L Normal 3.5 - 5.1 mmol/L AO ADM SS Prostate specific Ag [Mass/Vol] 0.78 ng/mL Normal 0.00 - 4.00 ng/mL AO ADM SS Protein [Mass/Vol] 7.9 G/dL Normal 6.4 - 8.2 G/dL AO ADM SS RBC (Bld) [#/Vol] 5.53 106/mcL Normal 4.50 - 6.0 0 10^6/mcL AO Workflow SS Sodium [Moles/Vol] 137 mmol/L Normal 136 - 145 mmol/L AO ADM SS Urea nitrogen [Mass/Vol] 19 mg/dL High 7 - 18 mg/dL AO ADM SS Urea nitrogen/Creatinine [Mass ratio] 22 ratio Normal 7 - 27 ratio AO ADM SS WBC (Bld) [#/Vol] 10.5 103/mcL Normal 4.5 - 10.8 10^3/mcL AO Workflow SS LABORATORYOrdered By: Crystal Garcia on 09-23-2024 Cholesterol [Mass/Vol] 166 mg/dL Normal 0 - 200 mg/dL AO ADM SS Comment on above: Interpretive Data: C holesterol Reference Interval: Less than 200 Desirable 200-239 Borderline high risk 240 and above High risk Cholesterol in HDL [Mass/Vol] 41 mg/dL Normal 40 - 60 mg/dL AO ADM SS Cholesterol in LDL [Mass/Vol] 101 mg/dL Normal 0 - 130 mg/dL AO ADM SS Triglyceride [Mass/Vol] 118 mg/dL Normal 0 - 150 mg/dL AO ADM SS Comment on above: Interpretive Data: T riglyceride Reference Interval: Less than 150 Normal 150-199 Borderline high risk 200-499 High risk 500 or higher Very high risk LIPIDon 09-23-2024 Cholesterol [Mass/Vol] 166 mg/dL Normal 0-200 [facility] Comment on above: Result Comment: Chol esterol Reference Interval: Less than 200 Desirable 200-239 Borderline high risk 240 and above High risk Performed By: #### C MP, ANEU, PSA, ADIFF, VIDH, GFR, A1C, LIPID, CBC #### [address] [address] Cholesterol in HDL [Mass/Vol] 41 mg/dL Normal 40-60 [facility] Comment on above: Performed By: #### C MP, ANEU, PSA, ADIFF, VIDH, GFR, A1C, LIPID, CBC #### [address] [address] Cholesterol in LDL [Mass/Vol] 101 mg/dL Normal 0-130 [facility] Comment on above: Performed By: #### C MP, ANEU, PSA, ADIFF, VIDH, GFR, A1C, LIPID, CBC #### [address] [address] Triglyceride [Mass/Vol] 118 mg/dL Normal 0-150 [facility] Comment on above: Result Comment: Trig lyceride Reference Interval: Less than 150 Normal 150-199 Borderline high risk 200-499 High risk 500 or higher Very high risk Performed By: #### C MP, ANEU, PSA, ADIFF, VIDH, GFR, A1C, LIPID, CBC #### [id number] [place], [place] [address] PSAon 09-23-2024 Prostate Specific Antigen 0.78 ng/mL Normal 0.00-4.00 [facility] Comment on above: Performed By: #### C MP, ANEU, PSA, ADIFF, VIDH, GFR, A1C, LIPID, CBC #### [id number] [place], [place] [address] VIDHon 09-23-2024 Vit. D 25-Hydroxy 19.5 ng/mL Normal [facility] Comment on above: Result Comment: Inte rpretive Values Based on Total 25(OH) Vitamin D: Deficient <20 ng/mL Insufficient 20 - <30 ng/mL Sufficient 30-100 ng/mL Performed By: #### C MP, ANEU, PSA, ADIFF, VIDH, GFR, A1C, LIPID, CBC ####[address] [address] [place] HEPATOBILIARY DUCT SYSTEM IMAGINGon 04-21-2023 [place] HEPATOBILIARY DUCT SYSTEM IMAGING ORIGINAL EXAMINATION: [facility]2022 12:18 pm TECHNIQUE: Approximately 5.7 millicuries Tc99m Choletec was administered IV. Then, dynamic images of the abdomen were obtained in the anterior projection for 60 mins. Slow infusion of 1.9 mcg cholecystokinin was administered intravenously over 30 mins. Images were obtained in the anterior projection and regions of interest were drawn around the gallbladder and ejection fraction was calculated. COMPARISON: None HISTORY: Reason for Exam: gallstones, abdominal pain FINDINGS: Prompt, homogenous uptake by the liver is noted with normal appearance of radiotracer excretion into the biliary system. Clearance of blood pool activity appears appropriate. Gallbladder and small bowel are visualized in appropriate time. Gallbladder ejection fraction is 29%. Normal value is >35% for CCK protocol. Enterogastric reflux is present after CCK administration. IMPRESSION: Abnormal gallbladder ejection fraction of 29 %, could be seen with biliary dyskinesia, chronic cholecystitis, cystic duct syndrome or sphincter of Oddi spasm. Enterogastric reflux. Interpreted by: Jared Bañuelos MD Preliminary Report By: Jared Bañuelos MD Electronically signed By Jared Bañuelos MD Dictated Date: 04/21/2023 2:04:01 PM Prelim Date: 04/21/2023 2:06:21 PM Sign Date: 04/21/2023 2:06:21 PM Ordering Provider: LILIANA CONNER [facility]) CT ABDOMEN/PELVIS W/CONTRAST on 03-24-2023 CT ABDOMEN/PELVIS W/CONTRAST ORIGINAL EXAMINATION: CT OF THE ABDOMEN AND PELVIS WITH CONTRAST 03/24/2023 3:36 pm TECHNIQUE: CT of the abdomen and pelvis was performed with the administration of intravenous and oral contrast. Multiplanar reformatted images are provided for review. Automated exposure control, iterative reconstruction, and/or weight based adjustment of the mA/kV was utilized to reduce the radiation dose to as low as reasonably achievable. COMPARISON: None. HISTORY: ORDERING SYSTEM PROVIDED HISTORY: Reason for Exam: Worsening abdominal pain after eating FINDINGS: Lower Chest: Visualized lung bases are clear. Organs: Liver, spleen, bilateral kidneys unremarkable. Bilateral ureters nondilated. Urinary bladder partially distended however unremarkable. Gallbladder shows 2 hyperdense calculi within the lumen the larger measuring 14 mm at the neck region. No obvious gallbladder wall thickening or surrounding inflammation. Bilateral adrenal glands show multiple nodules within largest measuring 19 mm on the left side and 14 mm on right. No evidence of lymphadenopathy. GI/Bowel: No acute gastrointestinal abnormality. No aneurysmal dilatation of aorta. Mild atherosclerotic changes in the aorta iliac vessels. IVC unremarkable. Bones/Soft Tissues: Mild degenerative changes in lumbar spine. IMPRESSION: 1. Cholelithiasis. 2. Bilateral adrenal glands showing multiple nodules within, indeterminate. Consider adrenal phasic CT. I have personally reviewed the images of this examination and agree with the resident's findings and interpretation. Interpreted by: Enio Berman MD Preliminary Report By: Eagle Goins Electronically signed By Enio Berman MD Dictated Date: 03/24/2023 3:47:37 PM Prelim Date: 03/24/2023 4:44:10 PM Sign Date: 03/24/2023 4:44:10 PM Ordering Provider: LILIANA CONNER [facility] ([place]) Abdomen/Pelvis without Conto n 12-29-2021 Abdomen/Pelvis without Cont [facility] Imaging Services [address] [place] [address] Abdomen/Pelvis without Cont MR#: [id number] Acct: [id number] Name: DEONNA DE LEÓN Rep #: [id number] : 1975 M 46 From: Enio Cordon PCP: Care Physician,No Primary Status: REG ER Study: Abdomen/Pelvis without Cont Date of Exam: 07/20 Exam# [id number] Ordering Dr: Isiah Montanez DO INDICATION: left flank pain EXAMINATION: CT ABDOMEN AND PELVIS WITHOUT CONTRAST - CT Abdomen And Pelvis W/O Contrast Injection TECHNIQUE: Helically acquired images were obtained of the abdomen and pelvis without oral or IV contrast. A radiation dose optimization technique was used for this scan. IV Contrast dosage and agent: None. Oral contrast: None. COMPARISON: 05/05/2019 CT abdomen and pelvis FINDINGS: LOWER CHEST: Lung bases are clear. No cardiomegaly or pericardial effusion. LIVER: Homogeneous. No focal mass. GALLBLADDER AND BILIARY TREE: At least 2 gallbladder stones, the largest of which measures 12 mm, in the collapsed gallbladder No gallbladder distension or wall edema. No intra- or extrahepatic biliary ductal dilation. PANCREAS: No focal cystic or solid mass. SPLEEN: Normal size without focal cystic or solid mass. ADRENAL GLANDS: Left and right adrenal, subcentimeter nodule with macroscopic fat; adrenal adenomas. KIDNEYS, URETERS and BLADDER: Normal renal size and position. No mass. No hydronephrosis. Bladder is unremarkable. No genitourinary stone. PERITONEUM: No ascites or free air. No other fluid collection. BOWEL: No evidence of acute appendicitis. No abnormally distended bowel loops or air fluid levels. No wall thickening or mass. No focal inflammatory changes. LYMPH NODES: No enlarged mesenteric or retroperitoneal lymph nodes. VESSELS: Aorta is non-dilated. Mild atherosclerosis. REPRODUCTIVE ORGANS: Normal size prostate gland with few calcifications. ABDOMINAL WALL: No discrete abdominal or pelvic wall hernia. BONES: No lytic or blastic abnormality. CT/Abdomen/Pelvis without Cont IMPRESSION: Cholelithiasis without cholecystitis. These were present on the prior 2018 CT. No genitourinary stone. Bilateral subcentimeter adrenal adenomas. Electronically Signed: Enio Cordon DO at 23:02 EDT , CC: Dr. 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 He noted that he had some flank pain earlier in the day which resolved. He later in the day prior to arrival had some sharp flank pain which radiate to the inguinal area. He complains of dysuria and irritation. Patient states his pain is improved currently. He has a history of kidney stones. He has not had fever or chills. No nausea or vomiting. [facility] Medical History Kidney stones Home Medications cephalexin 500 mg capsule 500 mg PO Q12 #14 caps 05/05/19 [Rx Last Taken Unknown] ibuprofen 600 mg tablet 600 mg PO Q6H PRN PRN Pain/Inflammation #20 tabs 05/05/19 [Rx Last Taken Unknown] ondansetron 4 mg disintegrating tablet 4 mg PO Q8H PRN PRN Nausea #10 tabs 05/05/19 [Rx Last Taken Unknown] tamsulosin 0.4 mg capsule 0.4 mg PO DAILY #7 caps 05/05/19 [Rx Last Taken Unknown] hydrocodone-acetaminop hen 5-325mg 5mg-325mg 1 tab PO Q6H PRN pain 3 days #10 tabs 12/28/21 [Rx Last Taken Unknown] ondansetron 4 mg disintegrating tablet 4 mg PO Q8H PRN nausea and vomiting #10 tabs 12/28/21 [Rx Last Taken Unknown] Allergy/AdvReac Type Severity Reaction Status Date / Time No Known Allergies Allergy Verified 05/05/19 06:17 Social History Smoking Status: Never smoker ROS ROS ED Constitutional Constitutional ED: Denies chills or fever(s) Eyes Eyes: Denies change in vision ENT ENT ED: Denies rhinorrhea or sore throat Cardiovascular Cardiovascular: Denies chest pain or palpitations Respiratory/Chest Respiratory/Chest: Denies cough or dyspnea Gastrointestinal Gastrointestinal: Reports other Details: Right flank pain Genitourinary Genitourinary ED: Reports dysuria; Denies urinary frequency Musculoskeletal Musculoskeletal: Denies arthralgias Integumentary Denies abscess Neurologic Neurologic: Denies headache(s) Psychiatric Psychiatric: Denies anxiety or depression EXAM Physical Exam Const Vital Signs: 12/28/21 20:19 Temperature 96.5 F L Temperature Source Temporal Pulse Rate 82 Respiratory Rate 18 Blood Pressure 135/102 H Blood Pressure Mean 113 Pulse Ox 98 Oxygen Delivery Method Room Air Positive well nourished General Appearance ED: NAD; Negative for pallor HEENT Reports moist mucous membranes normocephalic and atraumatic Eyes PERRL and EOMs intact bilaterally Resp normal respiratory effort and clear to auscultation bilaterally Auscultation: Negative for rales, rhonchi or wheezes Cardio regular rate and regular rhythm GI non-tender and non-distended no CVA tenderness Neuro oriented x3 and CN's II-XII intact bilaterally Sensorium / Orientation: alert Motor Exam: strength 5/5 throughout Psych mental status grossly normal Thought Process: normal thought process Thought Content: normal thought content Skin General Skin Exam: Negative for jaundice or pallor MDM MDM MDM Narrative Medical decision making narrative: Patient states his pain is improved but he was given morphine, Toradol, Zofran at a concern that his pain come back. CBC shows a slight leukocytosis of 12.4. Hemoglobin medic are stable. Platelets normal. Renal function electrolytes within normal limits. Urinalysis shows occult blood without evidence of infection. CT of the pelvis without contrast does not show any kidney stones. There is some gallstones noted without any evidence of acute cholecystitis. Patient is not having right upper quadrant pain. I suspect patient likely passed his kidney stone. I will cover him with Zofran and [place] as needed for pain as he still continues to have intermittent pain. He is can follow-up with urology. Patient stable for discharge at this time. Impression: 1. Right flank pain 2. Dysuria 3. Hematuria Lab Data Attestation: I reviewed the patient's lab results. Labs: Laboratory Results - last 24 hr 12/28/21 12/28/21 12/28/21 20:29 20:46 20:46 WBC 12.4 H RBC 5.45 Hgb 16.5 Hct 47.8 MCV 87.7 MCH 30.3 MCHC 34.5 RDW Std Deviation 42.6 RDW Coeff of Brennan 13.4 Plt Count 259 MPV 10.5 Immature Gran % (Auto) 0.700 Neut % (Auto) 62.2 Lymph % (Auto) 22.0 [place] % (Auto) 10.0 Eos % (Auto) 4.5 Baso % (Auto) 0.6 Absolute Neuts (auto) 7.7 Absolute Lymphs (auto) 2.72 Nucleated RBC % 0 Sodium 139 (more content not included)... Normal [facility] Absolute lymphocyte counton 12-28-2021 Lymphocytes Auto (Unsp spec) [#/Vol] 2.72 10*3/uL 0.83-4.51 [facility] Work Phone: Basic Metabolic Profile (BMP )on 12-28-2021 BUN/CRE 25.4 RATIO High 10-20 [facility] Comment on above: Performed By: #### L 100.0100, L500.2500 #### [facility] [address] [place], [address] CA,Total 9.0 mg/dL Normal 8.5-10.1 [facility] Comment on above: Performed By: #### L 100.0100, L500.2500 #### [facility] [address] [place], [address] Chloride [Moles/Vol] 107 mmol/L Normal 98-107 [facility] Comment on above: Performed By: #### L 100.0100, L500.2500 #### [facility] [address] [place], [address] CO2 [Moles/Vol] 25.0 mmol/L Normal 21.0-32.0 [facility] Comment on above: Performed By: #### L 100.0100, L500.2500 #### [facility] [address] [place], [address] Creatinine [Mass/Vol] 0.86 mg/dL Normal 0.70-1.30 [facility] Comment on above: Result Comment: The validity of the calculated GFR GFRAA in patients over 70 years has not been determined. Clinical correlation is essential. Performed By: #### L 100.0100, L500.2500 #### [facility] [address] [place], [address] ECRCL 101.41 ml/min Normal [facility] Comment on above: Performed By: #### L 100.0100, L500.2500 #### [facility] [address] [place], [address] EST GFR - AA 122 mL/min Normal >60 [facility] Comment on above: Result Comment: Afri can Eritrean GFR Calc Performed By: #### L 100.0100, L500.2500 #### [facility] [address] [place], [address] GAP 7 Normal 5-15 [facility] Comment on above: Performed By: #### L 100.0100, L500.2500 #### [facility] [address] [place], [address] GFR/1.73 sq M.predicted among non-blacks MDRD (S/P/Bld) [Vol rate/Area] 101 mL/min/{1.73_m2} Normal >60 [facility] Comment on above: Result Comment: Non- GFR Calc Performed By: #### L 100.0100, L500.2500 #### [facility] [address] [place], [address] Glucose [Mass/Vol] 127 mg/dL High 74-106 [facility] Comment on above: Result Comment: Fast ing Glucose result greater than or equal to 126 mg/dL suggests DIABETES MELLITUS per A.D.A. criteria. Performed By: #### L 100.0100, L500.2500 #### [facility] [address] [place], [address] Potassium [Moles/Vol] 3.7 mmol/L Normal 3.5-5.1 [facility] Comment on above: Performed By: #### L 100.0100, L500.2500 #### [facility] [address] [place], [address] Sodium [Moles/Vol] 139 mmol/L Normal 136-145 [facility] Comment on above: Performed By: #### L 100.0100, L500.2500 #### [facility] [address] [place], [address] Urea nitrogen [Mass/Vol] 22 mg/dL High 7-18 [facility] Comment on above: Performed By: #### L 100.0100, L500.2500 #### [facility] [address] [place], [address] Basophil percentageon 2021 Basophils/100 WBC (Bld) 0.6 % 0-1 [facility] Work Phone: [phone] Chloride [Moles/Vol] 107 mmol/L 98-107 [facility] Work Phone: [phone] Eosinophils/100 WBC (Bld) 4.5 % 0-5 [facility] Work Phone: [phone] Glucose [Mass/Vol] 127 mg/dL 74-106 [facility] Work Phone: [phone] Comment on above: Fasting Glucose resu lt greater than or equal to 126 mg/dL suggests DIABETES MELLITUS per A.D.A. criteria. Neutrophils (Bld) [#/Vol] 7.7 10*3/uL 2.0-7.7 [facility] Work Phone: Neutrophils/100 WBC (Bld) 62.2 % 47-70 [facility] Work Phone: [phone] Potassium [Moles/Vol] 3.7 mmol/L 3.5-5.1 [facility] Work Phone: Sodium [Moles/Vol] 139 mmol/L 136-145 [facility] Work Phone: WBC (Bld) [#/Vol] 12.4 10*3/uL 4.4-11.0 [facility] Work Phone: [phone] Basophil percentage 0-5 SEEN /hpf 0-5 [facility] Work Phone: Bilirubin Test strip Ql (U)o n 12-28-2021 Bilirubin Ql (U) Negative Negative [facility] Work Phone: Blood erythrocytes count (nu mber/volume)on 12-28-2021 RBC (Bld) [#/Vol] 5.45 10*6/uL 4.6-6.2 [facility] Work Phone: Blood hemoglobin measurement (mass/volume)on 12-28-2021 Hemoglobin (Bld) [Mass/Vol] 16.5 g/dL 13.0-16.5 [facility] Work Phone: Blood lymphocytes/100 leukoc yteson 12-28-2021 Lymphocytes/100 WBC (Bld) 22.0 % 19-41 [facility] Work Phone: Blood monocytes/100 leukocyt eson 12-28-2021 Monocytes/100 WBC (Bld) 10.0 % 0-10 [facility] Work Phone: Blood platelet mean volumeon 12-28-2021 Platelet mean volume (Bld) [Entitic vol] 10.5 fL 6.2-12.0 [facility] Work Phone: CBC W/Diff, Automatedon 08-0 Absolute Lymph 2.72 X10 3/uL Normal 0.83-4.51 [facility] Comment on above: Performed By: #### L 100.0100, L500.2500 #### [facility] [address] [place], [address] Absolute Neut 7.7 X10 3/uL Normal 2.0-7.7 [facility] Comment on above: Performed By: #### L 100.0100, L500.2500 #### [facility] [address] [place], [address] Basophils/100 WBC (Bld) 0.6 % Normal 0-1 [facility] Comment on above: Performed By: #### L 100.0100, L500.2500 #### [facility] [address] [place], [address] Eosinophils/100 WBC (Bld) 4.5 % Normal 0-5 [facility] Comment on above: Performed By: #### L 100.0100, L500.2500 #### [facility] [address] [place], [address] Erythrocyte distribution width (RBC) [Ratio] 13.4 % Normal 11.6-14.6 [facility] Comment on above: Performed By: #### L 100.0100, L500.2500 #### [facility] [address] [place], [address] Hematocrit (Bld) [Volume fraction] 47.8 % Normal 40-54 [facility] Comment on above: Performed By: #### L 100.0100, L500.2500 #### [facility] [address] [place], [address] Hemoglobin (Bld) [Mass/Vol] 16.5 g/dL Normal 13.0-16.5 [facility] Comment on above: Performed By: #### L 100.0100, L500.2500 #### [facility] [address] [place], [address] IG% 0.700 Normal 0.0-0.9 [facility] Comment on above: Result Comment: IG% - Immature Granulocytes (promyelocytes, myelocytes and metamyelocytes) > 1% indicates that a LEFT SHIFT is Present. Performed By: #### L 100.0100, L500.2500 #### [facility] [address] [place], [address] Lymphocytes/100 WBC (Bld) 22.0 % Normal 19-41 [facility] Comment on above: Performed By: #### L 100.0100, L500.2500 #### [facility] [address] [place], [address] MCH (RBC) [Entitic mass] 30.3 pg Normal 27.0-32.0 [facility] Comment on above: Performed By: #### L 100.0100, L500.2500 #### [facility] [address] [place], [address] MCHC (RBC) [Mass/Vol] 34.5 g/dL Normal 32-36 [facility] Comment on above: Performed By: #### L 100.0100, L500.2500 #### [facility] [address] [place], [address] MCV (RBC) [Entitic vol] 87.7 fL Normal 80-94 [facility] Comment on above: Performed By: #### L 100.0100, L500.2500 #### [facility] [address] [place], [address] Monocytes/100 WBC (Bld) 10.0 % Normal 0-10 [facility] Comment on above: Performed By: #### L 100.0100, L500.2500 #### [facility] [address] [place], [address] Neutrophils/100 WBC (Bld) 62.2 % Normal 47-70 [facility] Comment on above: Performed By: #### L 100.0100, L500.2500 #### [facility] [address] [place], [address] Nucleated RBC (Bld) [#/Vol] 0 10*3/uL Normal 0-5 [facility] Comment on above: Performed By: #### L 100.0100, L500.2500 #### [facility] [address] [place], [address] Platelet mean volume (Bld) [Entitic vol] 10.5 fL Normal 6.2-12.0 [facility] Comment on above: Performed By: #### L 100.0100, L500.2500 #### [facility] [address] [place], [address] Platelets (Bld) [#/Vol] 259 10*3/uL Normal 150-450 [facility] Comment on above: Performed By: #### L 100.0100, L500.2500 #### [facility] [address] [place], [address] RBC (Bld) [#/Vol] 5.45 10*6/uL Normal 4.6-6.2 [facility] Comment on above: Performed By: #### L 100.0100, L500.2500 #### [facility] [address] [place], [address] RDW SD 42.6 fl Normal 35.1-43.9 [facility] Comment on above: Performed By: #### L 100.0100, L500.2500 #### [facility] [address] [place], [address] WBC (Bld) [#/Vol] 12.4 10*3/uL High 4.4-11.0 [facility] Comment on above: Performed By: #### L 100.0100, L500.2500 #### [facility] [address] [place], [address] Calcium oxalate crystals det ection in urine sediment by light microscopyon 12-28-2021 Calcium oxalate crystals LM Ql (Urine sed) 1+ /hpf [facility] Work Phone: Determination of erythrocyte mean corpuscular volume (MCV)on 12-28-2021 MCV (RBC) [Entitic vol] 87.7 fL 80-94 [facility] Work Phone: Hematocrit Auto (Bld) [Volum e fraction]on 12-28-2021 Hematocrit (Bld) [Volume fraction] 47.8 % 40-54 [facility] Work Phone: Ketones Test strip Ql (U)on 12-28-2021 Ketones Ql (U) 5 mg/dl Negative [facility] Work Phone: Laboratory - Chemistry and C hemistry - challengeon 12-28-2021 CO2 [Moles/Vol] 25.0 mmol/L 21.0-32.0 [facility] Work Phone: Urea nitrogen/Creatinine [Mass ratio] 25.4 mg/mg 10-20 [facility] Work Phone: Laboratory - Hematology and Cell countson 12-28-2021 Erythrocyte distribution width (RBC) [Entitic vol] 42.6 fL 35.1-43.9 [facility] Work Phone: Erythrocyte distribution width (RBC) [Ratio] 13.4 % 11.6-14.6 [facility] Work Phone: Immature granulocytes/100 WBC (Bld) 0.700 % 0.0-0.9 [facility] Work Phone: Comment on above: IG% - Immature Granu locytes (promyelocytes, myelocytes and metamyelocytes) > 1% indicates that a LEFT SHIFT is Present. MCH (RBC) [Entitic mass] 30.3 pg 27.0-32.0 [facility] Work Phone: Nucleated RBC/100 WBC (Bld) [Ratio] 0 % 0-5 [facility] Work Phone: MCHC Auto (RBC) [Mass/Vol]on 12-28-2021 MCHC (RBC) [Mass/Vol] 34.5 g/dL 32-36 [facility] Work Phone: Mucus LM Ql (Urine sed)on Mucus Ql (Urine sed) 1+ /hpf [facility] Work Phone: Nitrite Test strip Ql (U)on 12-28-2021 Nitrite Ql (U) Negative Negative [facility] Work Phone: No Panel Informationon 12-28 Estimated Creatinine Clearance Calc 101.41 ml/min [facility] Work Phone: Estimated GFR (MDRD) Amer 122 mL/min >60 [facility] Work Phone: Comment on above: GFR Calc Estimated GFR (MDRD) Non-Af Amer 101 mL/min >60 [facility] Work Phone: Comment on above: Non- GFR Calc Platelets bldon 12-28-2021 Platelets (Bld) [#/Vol] 259 10*3/uL 150-450 [facility] Work Phone: Protein Test strip Ql (U)on 12-28-2021 Protein Ql (U) 15 mg/dl Negative [facility] Work Phone: Serum or plasma calcium nacho urement (mass/volume)on 12-28-2021 Calcium [Mass/Vol] 9.0 mg/dL 8.5-10.1 [facility] Work Phone: Serum or plasma creatinine m easurement (mass/volume)on 12-28-2021 Creatinine [Mass/Vol] 0.86 mg/dL 0.70-1.30 [facility] Work Phone: Comment on above: The validity of the calculated GFR & GFRAA in patients over 70 years has not been determined. Clinical correlation is essential. Serum or plasma urea nitroge n measurement (mass/volume)on 12-28-2021 Urea nitrogen [Mass/Vol] 22 mg/dL 7-18 [facility] Work Phone: Squamous epithelial cells de tection in urine sediment by light microscopyon 12-28-2021 Epithelial cells.squamous LM Ql (Urine sed) 0-5 SEEN /hpf 0-5 [facility] Work Phone: Thin prep Papanicolaou smear with manual screeningon 12-28-2021 Thin prep Papanicolaou smear with manual screening 7 5-15 [facility] Work Phone: Urinalysis, Completeon 12-28 CA OX CRYSTAL 1+ /hpf Normal [facility] Comment on above: Order Comment: CLEAN CATCH Performed By: #### L 400.0001 #### [facility] [address] [place], [address] Mucus Ql (Urine sed) 1+ /hpf Normal [facility] Comment on above: Order Comment: CLEAN CATCH Performed By: #### L 400.0001 #### [facility] [address] [place], [address] BACTERIA 1+ /hpf Normal None Seen [facility] Comment on above: Order Comment: CLEAN CATCH Performed By: #### L 400.0001 #### [facility] [address] [place], [address] EPI,SQUAMOUS 0-5 SEEN Normal 0-5 [facility] Comment on above: Order Comment: CLEAN CATCH Performed By: #### L 400.0001 #### [facility] [address] [place], [address] RBC 50-100 SEEN Normal 0-5 [facility] Comment on above: Order Comment: CLEAN CATCH Performed By: #### L 400.0001 #### [facility] [address] [place], [place], [id number] WBC 0-5 SEEN Normal 0-5 [facility] Comment on above: Order Comment: CLEAN CATCH Performed By: #### L 400.0001 #### [facility] [address] [place], [address] Urine blood detectionon 08- RBC Ql (U) 250 /ul Negative [facility] Work Phone: RBC Ql (U) 50-100 SEEN /hpf 0-5 [facility] Work Phone: Urine clarityon 12-28-2021 Clarity (U) Clear Clear [facility] Work Phone: Urine color determinationon 12-28-2021 Color (U) Yellow Yellow [facility] Work Phone: Urine glucose detectionon Glucose Ql (U) Normal mg/dl Normal [facility] Work Phone: Urine leukocyte esterase det ection by dipstickon 12-28-2021 Leukocyte esterase Test strip Ql (U) 25 /ul Negative [facility] Work Phone: Urine pHon 12-28-2021 pH (U) 5.0 [pH] 5.0 - 8.0 [facility] Work Phone: Urine sediment bacteria coun t by microscopy (number/high power field)on 12-28-2021 Bacteria LM.HPF (Urine sed) [#/Area] 1 /[HPF] None Seen [facility] Work Phone: Urine specific gravity measu rementon 12-28-2021 Specific gravity (U) [Rel density] 1.025 1.002-1.030 [facility] Work Phone: Urobilinogen Auto test strip Ql (U)on 12-28-2021 Urobilinogen Ql (U) 1 mg/dl Normal [facility] Work Phone: Vital Signs Date Time Vital Sign Value Performing Clinician Facility 10-10-2024 11:05-0400 Body height 170 cm KENNETH MACDONALD MD [facility] 10-10-2024 11:05-0400 Body weight 95.5 kg KENNETH MACDONALD MD [facility] 10-10-2024 11:05-0400 Body weight 33.04 kg/m2 KENNETH MACDONALD MD [facility] 06-22-2023 11:22-0500 Diastolic Blood Pressure Non-Invasive 87 mm[Hg] KENNETH MACDONALD MD [facility] 06-22-2023 11:22-0500 Heart rate 75 /min KENNETH MACDONALD MD [facility] 06-22-2023 11:22-0500 Systolic Blood Pressure Non-Invasive 127 mm[Hg] KENNETH MACDONALD MD [facility] 06-22-2023 11:06-0500 Diastolic Blood Pressure Non-Invasive 92 mm[Hg] KENNETH MACDONALD MD [facility] 06-22-2023 11:06-0500 Heart rate 77 /min KENNETH MACDONALD MD [facility] 06-22-2023 11:06-0500 Systolic Blood Pressure Non-Invasive 124 mm[Hg] KENNETH MACDONALD MD [facility] 06-22-2023 10:49-0500 Diastolic Blood Pressure Non-Invasive 84 mm[Hg] KENNETH MACDONALD MD [facility] 06-22-2023 10:49-0500 Heart rate 84 /min KENNETH MACDONALD MD [facility] 06-22-2023 10:49-0500 Respiratory rate 22 /min KENNETH MACDONALD MD [facility] 06-22-2023 10:49-0500 Systolic Blood Pressure Non-Invasive 119 mm[Hg] KENNETH MADCONALD MD [facility] 06-22-2023 10:44-0500 Respiratory rate 18 /min KENNETH MACDONALD MD [facility] 06-22-2023 10:33-0500 Respiratory rate 18 /min KENNETH MACDONALD MD [facility] 06-22-2023 09:45-0500 Body temperature 97.52 [degF] KENNETH MACDONALD MD [facility] 06-22-2023 09:40-0500 Respiratory Rate - Anes 12 br/min KENNETH MACDONALD MD [facility] 06-22-2023 09:35-0500 Respiratory Rate - Anes 13 br/min KENNETH MACDONALD MD [facility] 06-22-2023 09:30-0500 Respiratory Rate - Anes 8 br/min KENNETH MACDONALD MD [facility] 06-22-2023 06:21-0500 Body height 172.7 cm KENNETH MACDONALD MD [facility] 06-22-2023 06:21-0500 Body temperature 97.7 [degF] KENNETH MACDONALD MD [facility] 06-22-2023 06:21-0500 Body weight 95.4 kg KENNETH MACDONALD MD [facility] 06-22-2023 06:21-0500 Heart rate 71 /min KENNETH MACDONALD MD [facility] 06-13-2023 13:03-0500 Body height 170.2 cm KENNETH MACDONALD MD [facility] 06-13-2023 13:03-0500 Body weight 94.5 kg KENNETH MACDONALD MD [facility] 12-28-2021 20:19-0400 Body height 170.18 cm [facility] Work Phone: 12-28-2021 20:19-0400 Body mass index (BMI) [Ratio] 32.1 kg/m2 [facility] Work Phone: 12-28-2021 20:19-0400 Body temperature 96.5 [degF] [facility] Work Phone: 12-28-2021 20:19-0400 Body weight 92.98 kg [facility] Work Phone: 12-28-2021 20:19-0400 Diastolic blood pressure 102 mm[Hg] [facility] Work Phone: 12-28-2021 20:19-0400 Heart rate 82 /min [facility] Work Phone: 12-28-2021 20:19-0400 Respiratory rate 18 /min [facility] Work Phone: 12-28-2021 20:19-0400 SaO2% (BldA) [Mass fraction] 98 % [facility] Work Phone: 12-28-2021 20:19-0400 Systolic blood pressure 135 mm[Hg] [facility] Work Phone: Encounters Encounter Date Encounter Type Care Provider Facility Start: 02-07-2025 End: 02-11-2025 ambulatory LILIANA CONNER MD Facility:[facility] Start: 02-07-2025 End: 02-11-2025 Outreach Lab LILIANA CONNER MD [facility] Start: 10-24-2024 End: 10-24-2024 ambulatory LILIANA CONNER MD Facility[facility] Start: 10-24-2024 End: 10-24-2024 SAME DAY STAY KENNETH MACDONALD MD [facility] Start: 10-10-2024 End: 10-10-2024 Admission to establishment KENNETH MACDONALD MD [facility] Start: 10-10-2024 End: 10-10-2024 ambulatory LILIANA CONNER MD Facility[facility] Start: 09-23-2024 End: 09-27-2024 ambulatory LILIANA CONNER MD Facility:[facility] Start: 09-23-2024 End: 09-27-2024 Outreach Lab LILIANA CONNER MD [facility] Start: 06-22-2023 End: 06-22-2023 ambulatory KENNETH MACDONALD MD Facility:[facility] Start: 06-22-2023 End: 06-22-2023 SAME DAY STAY KENNETH MACDONALD MD [facility] Start: 06-13-2023 End: 06-14-2023 ambulatory LILIANA CONNER MD Facility:[facility] Start: 06-13-2023 End: 06-13-2023 Admission to establishment KENNETH MACDONALD MD [facility] Start: 04-24-2023 ambulatory LILIANA CONNER MD Faci lity:[facility] Start: 04-21-2023 End: 04-22-2023 ambulatory ILLIANA CONNER MD Facility:[facility] Start: 03-24-2023 End: 03-25-2023 ambulatory LILIANA CONNER MD Facility:[facility] Start: 03-24-2023 End: 10-27-2023 Patient encounter procedure LILIANA CONNER MD [facility] Start: 12-28-2021 End: 12-28-2021 Emergency department patient visit [facility] Procedures Date Procedure Procedure Detail Performing Clinician Start: 10-24-2024 Hemorrhoidectomy KENNETH ROD MD Start: 06-20-2023 Cholecystectomy LILIANA CONNER MD Start: 12-28-2021 CT of abdomen and pe lvis without contrast Excision of lipoma LILIANA ORTIZ MD Extracorporeal shock wave lithotripsy of ureter KENNETH MACDONALD MD Plan of Treatment Date Care Activity Detail Author Patient Education ED Kidney Stone, Passed [facility] Work Phone: Patient referral [facility] Work Phone: Payers Date Payer Category Payer Private Health Insurance [id number] 2024 Unknown [id number] 2023 Unknown [id number] 1975 Unknown [id number] 1976 Unknown [id number] 1976 Unknown [id number] 1976 Unknown [id number] 1976 Unknown [id number] 1976 Unknown [id number] 1976 Unknown [id number] 1976 Unknown [id number] 1975 Unknown [id number] Self-pay SELF PAY INSURANCE [id number] Social History Date Type Detail Facility Start: 12-28-2021 Tobacco smoking stat [facility] Unknown if ever smoked [facility] Work Phone: Start: 05-05-2019 Occasional [facility] Work Phone: Start: 05-05-2019 None [facility] Work Phone: Start: 05-05-2019 Spouse/ Signif icant Other [facility] Work Phone: Start: 1975 Sex Assigned At Male [facility] Start: 05-09-2019 End: 02-07-2025 Tobacco smoking status Heavy tobacco smoker (finding) [facility] Sexual Orientation [facility] Start: 01-21-2020 Sex Male (finding) [facility] Functional Status Date Assessment Result Facility 10-10-2024 Functional Status Sensory Deficits None [facility] 06-22-2023 Functional Status Up to chair [facility] 06-22-2023 Functional Status bilateral knee high applied/on [facility] 06-22-2023 Functional Status Maintained [facility] 06-13-2023 Functional Status Sensory Deficits None [facility] Mental Status Date Assessment Result Facility 06-22-2023 Mental Status Orientation Oriented x 4 [facility] 06-22-2023 Mental Status [facility] 06-22-2023 Mental Status [facility] Clinical Notes 03-24-2023 to 02-09-2025 LaboratoryRadiologyRadiology Note Date & Type Note Facility 02-09-2025 Note . MICRO - Microbiology PROCEDURE: Urine Culture [*1] SOURCE: Urine, Clean Catch BODY SITE: COLLECTED DATE/TIME: 02/07/2025 16:20 EDT RECEIVED DATE/TIME: 02/07/2025 19:25 EDT START DATE/TIME: 02/07/2025 19:25 EDT FREE TEXT SOURCE: FINAL REPORTS Final Report [] Verified Date/Time/Personnel: 02/09/2025 07:10 EDT No growth at 48 hours. PRELIMINARY REPORTS Preliminary Report [] Verified Date/Time/Personnel: 02/08/2025 11:29 EDT No growth to date Preliminary Report [] Verified Date/Time/Personnel: 02/07/2025 19:59 EDT Specimen received in lab. Performing Locations *1: This test was performed at: [facility], [address] [place] [address], [facility] , [facility] 10-24-2024 Hospital Discharge instructions Patient Education 10/24/2024 10:47:53 Surgical Procedures for Hemorrhoids, Care After Surgical Procedures for Hemorrhoids, Care After This sheet gives you information about how to care for yourself after your procedure. Your health care provider may also give you more specific instructions. If you have problems or questions, contact your health care provider. What can I expect after the procedure? After the procedure, it is common to have: Rectal pain. Pain when you are having a bowel movement. Slight rectal bleeding. This is more likely to happen with the first bowel movement after surgery. Follow these instructions at home: Medicines Take klll-igd-wlmsbue and prescription medicines only as told by your health care provider. If you were prescribed an antibiotic medicine, use it as told by your health care provider. Do not stop using the antibiotic even if your condition improves. Ask your health care provider if the medicine prescribed to you requires you to avoid driving or using heavy machinery. Use a stool softener or a bulk laxative as told by your health care provider. Eating and drinking Follow instructions from your health care provider about what to eat or drink after your procedure. You may need to take actions to prevent or treat constipation, such as: ?Drink enough fluid to keep your urine pale yellow. ?Take ccat-hnm-uohbpod or prescription medicines. ?Eat foods that are high in fiber, such as beans, whole grains, and fresh fruits and vegetables. ?Limit foods that are high in fat and processed sugars, such as fried or sweet foods. Activity Rest as told by your health care provider. Avoid sitting for a long time without moving. Get up to take short walks every 1 2 hours. This is important to improve blood flow and breathing. Ask for help if you feel weak or unsteady. Return to your normal activities as told by your health care provider. Ask your health care provider what activities are safe for you. Do not lift anything that is heavier than 10 lb (4.5 kg), or the limit that you are told, until your health care provider says that it is safe. Do not strain to have a bowel movement. Do not spend a long time sitting on the toilet. General instructions Take warm sitz baths for 15 20 minutes, 2 3 times a day to relieve soreness or itching and to keep the rectal area clean. Apply ice packs to the area to reduce swelling and pain. Do not drive for 24 hours if you were given a sedative during your procedure. Keep all follow-up visits as told by your health care provider. This is important. Contact a health care provider if: Your pain medicine is not helping. You have a fever or chills. You have bad smelling drainage. You have a lot of swelling. You become constipated. You have trouble passing urine. Get help right away if: You have very bad rectal pain. You have heavy bleeding from your rectum. Summary After the procedure, it is common to have pain and slight rectal bleeding. Take warm sitz baths for 15 20 minutes, 2 3 times a day to relieve soreness or itching and to keep the rectal area clean. Avoid straining when having a bowel movement. Eat foods that are high in fiber, such as beans, whole grains, and fresh fruits and vegetables. Take zpue-wjy-tylojtm and prescription medicines only as told by your health care provider. This information is not intended to replace advice given to you by your health care provider. Make sure you discuss any questions you have with your health care provider. Document Released: 08/04/2004 Document Revised: 10/30/2019 Document Reviewed: 04/02/2019 [email or web address] Patient Education 2020 [employer]. 10/24/2024 10:46:09 General Anesthesia, Adult, Care After General Anesthesia, Adult, Care After This sheet gives you information about how to care for yourself after your procedure. Your health care provider may also give you more specific instructions. If you have problems or questions, contact your health care provider. What can I expect after the procedure? After the procedure, the following side effects are common: Pain or discomfort at the IV site. Nausea. Vomiting. Sore throat. Trouble concentrating. Feeling cold or chills. Weak or tired. Sleepiness and fatigue. Soreness and body aches. These side effects can affect parts of the body that were not involved in surgery. Follow these instructions at home: For at least 24 hours after the procedure: Have a responsible adult stay with you. It is important to have someone help care for you until you are awake and alert. Rest as needed. Do not: ?Participate in activities in which you could fall or become injured. ?Drive. ?Use heavy machinery. ?Drink alcohol. ?Take sleeping pills or medicines that cause drowsiness. ?Make important decisions or sign legal documents. ?Take care of children on your own. Eating and drinking Follow any instructions from your health care provider about eating or drinking restrictions. When you feel hungry, start by eating small amounts of foods that are soft and easy to digest (bland), such as toast. Gradually return to your regular diet. Drink enough fluid to keep your urine pale yellow. If you vomit, rehydrate by drinking water, juice, or clear broth. General instructions If you have sleep apnea, surgery and certain medicines can increase your risk for breathing problems. Follow instructions from your health care provider about wearing your sleep device: ?Anytime you are sleeping, including during daytime naps. ?While taking prescription pain medicines, sleeping medicines, or medicines that make you drowsy. Return to your normal activities as told by your health care provider. Ask your health care provider what activities are safe for you. Take vfrf-urc-rfkebcw and prescription medicines only as told by your health care provider. If you smoke, do not smoke without supervision. Keep all follow-up visits as told by your health care provider. This is important. Contact a health care provider if: You have nausea or vomiting that does not get better with medicine. You cannot eat or drink without vomiting. You have pain that does not get better with medicine. You are unable to pass urine. You develop a skin rash. You have a fever. You have redness around your IV site that gets worse. Get help right away if: You have difficulty breathing. You have chest pain. You have blood in your urine or stool, or you vomit blood. Summary After the procedure, it is common to have a sore throat or nausea. It is also common to feel tired. Have a responsible adult stay with you for the first 24 hours after general anesthesia. It is important to have someone help care for you until you are awake and alert. When you feel hungry, start by eating small amounts of foods that are soft and easy to digest (bland), such as toast. Gradually return to your regular diet. Drink enough fluid to keep your urine pale yellow. Return to your normal activities as told by your health care provider. Ask your health care provider what activities are safe for you. This information is not intended to replace advice given to you by your health care provider. Make sure you discuss any questions you have with your health care provider. Document Released: 08/21/2001 Document Revised: 05/18/2018 Document Reviewed: 12/29/2017 [email or web address] Patient Education 2020 [employer]. Follow Up Care 09/25/2024 08:13:53 With:KENNETH MACDONALD Address: [address] [place] [address] [phone] Business (1) When: Unknown Comments:SCHEDULE FOLLOW UP IN 2 WEEKS [facility] 10-24-2024 Note Discharge Instructions Thank you for allowing [facility] to assist you with your healthcare needs. The following is important discharge information regarding your hospital visit. Your Care Team LILIANA CONNER MD Your Diagnosis Acute post-operative pain What to do next Scheduled Follow-Up Appointments Appointment Type When With Where Contact Information StatusGS OV Post Op 11/07/2024 02:00 PM KENNETH STUART MD [facility] Surgery [place] Confirmed Follow Up Appointments Follow Up with KENNETH MACDONALD [facility] [facility] [place] [address]- [phone] Business (1) Additional Information: SCHEDULE FOLLOW UP IN 2 WEEKS The Following Activity and Diet Have Been Ordered for You Discharge Activity - Ordered -- Sexual [place] Restricted No bending, twisting, crawling or squatt, No shower or tub bath for 2 days; no driving for 5 days, no lifting >15 lbs, 10/24/24 10:40:00 EDT Discharge Diet - Ordered -- Follow the post-operative/post-procedure diet instructions provided by your physician's office., 10/24/24 10:40:00 EDT The Following Equipment Has Been Ordered for You Discharge Home Equipment Discharge Wound Care - Ordered -- Dressing Type: Dry sterile drsg, Remove dressing in two (2) days. Leave steristrips on until they fall off, 10/24/24 10:40:00 EDT Allergies NKA Medications Please ask your primary doctor or pharmacist before taking any other medication not listed, including over the counter drugs, herbal medications, vitamins and or supplements as they may interact with your home medications. What How Much When Why Instructions Last Dose New acetaminophen-hydrocodone ([place] 325- 5 mg oral tablet) 1 tab(s) by mouth Every 4 hours as needed for Pain, scale 4-6 Acute post-operative pain Duration: 7 Days Pickup at [facility]/pharmacy #[id number] Pharmacy Information [facility]/pharmacy #[id number]: [address], [place] [phone] Please take this list to your next doctor s visit. Bring all medications you take, including over the counter medications, herbals and other supplements with you to your doctor s visit. Patients and families are reminded to discard old lists and to update any records with all medication providers or retail pharmacies. Education Materials Surgical Procedures for Hemorrhoids, Care After This sheet gives you information about how to care for yourself after your procedure. Your health care provider may also give you more specific instructions. If you have problems or questions, contact your health care provider. What can I expect after the procedure? After the procedure, it is common to have: Rectal pain. Pain when you are having a bowel movement. Slight rectal bleeding. This is more likely to happen with the first bowel movement after surgery. Follow these instructions at home: Medicines Take muyz-pyq-fuorbsl and prescription medicines only as told by your health care provider. If you were prescribed an antibiotic medicine, use it as told by your health care provider. Do not stop using the antibiotic even if your condition improves. Ask your health care provider if the medicine prescribed to you requires you to avoid driving or using heavy machinery. Use a stool softener or a bulk laxative as told by your health care provider. Eating and drinking Follow instructions from your health care provider about what to eat or drink after your procedure. You may need to take actions to prevent or treat constipation, such as: ? Drink enough fluid to keep your urine pale yellow. ? Take hwby-fab-dhieoas or prescription medicines. ? Eat foods that are high in fiber, such as beans, whole grains, and fresh fruits and vegetables. ? Limit foods that are high in fat and processed sugars, such as fried or sweet foods. Activity Rest as told by your health care provider. Avoid sitting for a long time without moving. Get up to take short walks every 1 2 hours. This is important to improve blood flow and breathing. Ask for help if you feel weak or unsteady. Return to your normal activities as told by your health care provider. Ask your health care provider what activities are safe for you. Do not lift anything that is heavier than 10 lb (4.5 kg), or the limit that you are told, until your health care provider says that it is safe. Do not strain to have a bowel movement. Do not spend a long time sitting on the toilet. General instructions Take warm sitz baths for 15 20 minutes, 2 3 times a day to relieve soreness or itching and to keep the rectal area clean. Apply ice packs to the area to reduce swelling and pain. Do not drive for 24 hours if you were given a sedative during your procedure. Keep all follow-up visits as told by your health care provider. This is important. Contact a health care provider if: Your pain medicine is not helping. You have a fever or chills. You have bad smelling drainage. You have a lot of swelling. You become constipated. You have trouble passing urine. Get help right away if: You have very bad rectal pain. You have heavy bleeding from your rectum. Summary After the procedure, it is common to have pain and slight rectal bleeding. Take warm sitz baths for 15 20 minutes, 2 3 times a day to relieve soreness or itching and to keep the rectal area clean. Avoid straining when having a bowel movement. Eat foods that are high in fiber, such as beans, whole grains, and fresh fruits and vegetables. Take zxva-soi-cuesean and prescription medicines only as told by your health care provider. This information is not intended to replace advice given to you by your health care provider. Make sure you discuss any questions you have with your health care provider. Document Released: 08/04/2004 Document Revised: 10/30/2019 Document Reviewed: 04/02/2019 [employer] Patient Education 2020 [employer]. General Anesthesia, Adult, Care After This sheet gives you information about how to care for yourself after your procedure. Your health care provider may also give you more specific instructions. If you have problems or questions, contact your health care provider. What can I expect after the procedure? After the procedure, the following side effects are common: Pain or discomfort at the IV site. Nausea. Vomiting. Sore throat. Trouble concentrating. Feeling cold or chills. Weak or tired. Sleepiness and fatigue. Soreness and body aches. These side effects can affect parts of the body that were not involved in surgery. Follow these instructions at home: For at least 24 hours after the procedure: Have a responsible adult stay with you. It is important to have someone help care for you until you are awake and alert. Rest as needed. Do not: ? Participate in activities in which you could fall or become injured. ? Drive. ? Use heavy machinery. ? Drink alcohol. ? Take sleeping pills or medicines that cause drowsiness. ? Make important decisions or sign legal documents. ? Take care of children on your own. Eating and drinking Follow any instructions from your health care provider about eating or drinking restrictions. When you feel hungry, start by eating small amounts of foods that are soft and easy to digest (bland), such as toast. Gradually return to your regular diet. Drink enough fluid to keep your urine pale yellow. If you vomit, rehydrate by drinking water, juice, or clear broth. General instructions If you have sleep apnea, surgery and certain medicines can increase your risk for breathing problems. Follow instructions from your health care provider about wearing your sleep device: ? Anytime you are sleeping, including during daytime naps. ? While taking prescription pain medicines, sleeping medicines, or medicines that make you drowsy. Return to your normal activities as told by your health care provider. Ask your health care provider what activities are safe for you. Take bjqj-xwr-jsfgwnm and prescription medicines only as told by your health care provider. If you smoke, do not smoke without supervision. Keep all follow-up visits as told by your health care provider. This is important. Contact a health care provider if: You have nausea or vomiting that does not get better with medicine. You cannot eat or drink without vomiting. You have pain that does not get better with medicine. You are unable to pass urine. You develop a skin rash. You have a fever. You have redness around your IV site that gets worse. Get help right away if: You have difficulty breathing. You have chest pain. You have blood in your urine or stool, or you vomit blood. Summary After the procedure, it is common to have a sore throat or nausea. It is also common to feel tired. Have a responsible adult stay with you for the first 24 hours after general anesthesia. It is important to have someone help care for you until you are awake and alert. When you feel hungry, start by eating small amounts of foods that are soft and easy to digest (bland), such as toast. Gradually return to your regular diet. Drink enough fluid to keep your urine pale yellow. Return to your normal activities as told by your health care provider. Ask your health care provider what activities are safe for you. This information is not intended to replace advice given to you by your health care provider. Make sure you discuss any questions you have with your health care provider. Document Released: 08/21/2001 Document Revised: 05/18/2018 Document Reviewed: 12/29/2017 [employer]OV[employer] Patient Education 2020 [employer]. Additional Information VACCINATE! IT SAVES LIVES! Members of the community who have not yet received the COVID-19 vaccine and would like to receive it can visit one of [facility] vaccine clinics. There are many vaccine clinic locations within the [facility]. For locations and available times, please visit [email or web address] .[email or web address] It is important to note that some COVID mobile vaccine clinics are held outdoors and may be canceled in rainy or stormy conditions. To learn more about pediatric vaccinations (ages 5-11), we invite you to visit the [facility] webpage. [email or web address]/page [email or web address]-Frequently -[email or web address]-Questions.html To learn more about the COVID-19 vaccine, we invite you to visit the CDC website for a list of frequently asked questions.https://www.cdc.gov/coron avirus/2019-ncov/vaccines/faq.html [employer] Patient Portal Access Instructions: Stay connected with your healthcare team and access your personal medical information anytime with the [employer] Patient Portal. Please follow the directions below to create your [employer] account: 1.Access the email account you provided upon registration to the hospital/physician office.2.Look for an invitation email from [facility].3.Open the email and access the invitation link: Accept Invitation to [employer].4.Fill in the required eaton to create your account. To access your account, visit [employer]. Click the blue button labeled Access Patient Portal and then log in with the username and password that you created in the steps above. You will be able to view your test results, lab results, a summary of your visits, upcoming appointments and more. There is also a convenient messaging option where you can send secure messages to your provider. In addition, you will have the ability to download any documents or summaries to your computer and/or send the information securely to a physician. Remember that your healthcare information is confidential, so carefully consider who you will allow to register on the [employer] Patient Portal for access to your information. You can also access the [employer] Patient Portal on the [facility] [employer] tiffany. Simply click on Patient Portal and then log into your account. If you would like to receive a full copy of your medical records, please contact the [facility] Medical Records Department by calling [phone], Monday through Monday between 8 a.m. and 4:30 p.m. HOW TO SAFELY DISPOSE OF PRESCRIPTION MEDICATIONS Please use one of the following methods to safely dispose of your unused medications. 1.Use a drug disposal kit: the drug disposal pouch allows you to safely discard your old and unused drugs. Ask your nurse to give you one when you are discharged.2.Visit a local take-back location: Many local pharmacies and police departments have programs that collect old and unwanted prescription drugs. Call your local pharmacy or go to [email or web address] to find one close to you.3.Make use of household items: Use cat litter or old coffee grounds to dispose medications if other options are not available. Mix your drugs with these household products, seal them in an airtight container and throw it into the garbage. Call [facility]: [phone] to be sure your drugs can be disposed of in this way. Some medicines may require a different approach.4.Never flush your medications down the toilet. IF YOU HAVE BEEN PRESCRIBED AN OPIOID FOR PAIN If you have been prescribed an opioid (such as hydrocodone, oxycodone or morphine), it is critical to understand the possible side effects and risks of opioid pain medications. Even when taken as directed, opioids can have several side effects including: Tolerance, meaning you might need to take more of a medication for the same pain relief. Nausea, vomiting and/or constipation. Sleepiness, dizziness, dry mouth, confusion, depression or itching. Physical dependence, meaning you have withdrawal symptoms when a medication is stopped, can develop within a few days. KNOW YOUR RESPONSIBILITIES It is important to know exactly how much and how often to take the opioid pain medications you are prescribed. Never take opioids in higher amounts or more often than prescribed. Do not combine opioids with alcohol or other drugs that cause drowsiness, such as benzodiazepines, also known as benzos, including diazepam and alprazolam, muscle relaxants or sleep aids. Never sell or share prescription opioids. This is illegal. Store opioids in a secure place and out of reach of others (including children, family, friends and visitors). The last page of this document has been signed and retained as a CHART COPY. Signatures Patient Education Materials Surgical Procedures for Hemorrhoids, Care After General Anesthesia, Adult, Care After Medication Leaflets My discharge plan and instructions have been reviewed and explained to me and I,DEONNA DE LEÓN understand my current condition and have read and understand these discharge instructions. I have received a written copy of the plan/instructions. If I have questions, I am aware that I should contact my doctor. 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 Family's history: negative. Review of Systems Ear/Nose/Mouth/Throat: Negative. Respiratory: smoker. Cardiovascular: Negative. Gastrointestinal: Reflux, MO. Genitourinary: Negative. Endocrine: Negative. Musculoskeletal: Negative. Integumentary: Negative. Neurologic: Negative. Health Status Allergies: Allergic Reactions (Selected) NKA, Allergies (1) ActiveSeverityReaction NKANone Documented Current medications: (Selected) Inpatient Medications Ordered LR 1000 mL: 20 mL/hr, Intravenous, Medications (1) Active Scheduled: (0) Continuous: (1) Lactated Ringers Infusion 1000 mL 1,000 mL, Intravenous, 20 mL/hr PRN: (0) Problem list: Medical Abdominal pain / SNOMED CT 25580353 / Confirmed Biliary dyskinesia / SNOMED CT 689803658 / Confirmed External hemorrhoid / SNOMED CT 49512462 / Confirmed History of kidney stones / SNOMED CT 5338920144 / Confirmed Low back pain / SNOMED CT 055852111 / Confirmed Class 1 obesity without serious comorbidity with body mass index (BMI) of 32.0 to 32.9 in adult / SNOMED CT 6803083478 / Confirmed Preop examination / SNOMED CT 105175140 / Confirmed Prostatitis / SNOMED CT 09405832 / Confirmed Abdominal distention / SNOMED CT 504510912 / Confirmed Thrombosed hemorrhoids / SNOMED CT 485320861 / Confirmed Vitamin D deficiency / SNOMED CT 29424550 / Confirmed, Active Problems (13) Abdominal distention Abdominal pain Biliary dyskinesia Class 1 obesity without serious comorbidity with body mass index (BMI) of 32.0 to 32.9 in adult External hemorrhoid GERD (gastroesophageal reflux disease) History of kidney stones Low back pain Preop examination Prostatitis Thrombosed hemorrhoids Tobacco use Vitamin D deficiency Histories Past Medical History: No active or resolved past medical history items have been selected or recorded. Family History: Hypertension Father Migraine Sister Kidney infection Sister Brother Procedure history: Hemorrhoidectomy ([id number]) on 10/24/2024 at 49 Years. Cholecystectomy ([id number]) on 06/20/2023 at 48 Years. Excision of lipoma ([id number]). ESWL (extracorporeal shockwave lithotripsy) of ureteric calculus ([id number]). Social History: Social & Psychosocial Habits Alcohol 10/24/2024 Use: Current Frequency: 1-2 times per month Substance Abuse 10/24/2024 Use: Never Tobacco 10/24/2024 Tobacco Use: 10 or more cigarettes (1/ Type: Cigarettes Tobacco use per day: 10 Number of years: 20 Ready to change: No Smoking Cessation Information Smoking cessation informa Nutrition/Health 10/24/2024 Caffeine intake amount: 1-2 servings pop daily Physical Examination Vital Signs 10/24/2024 10:05 EDT Heart Rate Monitored 61 bpm bpm Respiratory Rate - Anes 0 br/min br/min Systolic Blood Pressure Non-Invasive 87 mmHg mmHg Diastolic Blood Pressure Non-Invasive 69 mmHg mmHg 10/24/2024 10:03 EDT Systolic Blood Pressure Non-Invasive 115 mmHg mmHg Diastolic Blood Pressure Non-Invasive 87 mmHg mmHg 10/24/2024 8:21 EDT Temperature Temporal Artery 36.6 DegC Peripheral Pulse Rate 68 bpm Respiratory Rate 16 br/min Systolic Blood Pressure Non-Invasive 119 mmHg Diastolic Blood Pressure Non-Invasive 84 mmHg Vital Signs (last 24 hrs) Last Charted Temp Livunygc62.6 DegC (OCTOBER 24 08:21) Heart Rate Wuljoyuls73 bpm (OCTOBER 24 10:05) SBP87 mmHg (OCTOBER 24 10:05) DBP69 mmHg (MAY 29 10:05) Measurements from flowsheet : Measurements 10/24/2024 8:21 EDT Height 170 cm Admission Weight 95.5 kg [place] Body Weight 65.94 kg Pain assessment: Pain Assessment 10/24/2024 8:21 EDT Primary Pain Intensity 0 Pain Scale Type 0-10 Pain scale . General: Alert and oriented. Airway: Mallampati classification: III (soft palate, base of uvula visible). Head: Normocephalic. Dentition Evaluation: Own teeth. Neck: Supple. Respiratory: Lungs are clear to auscultation. Cardiovascular: Normal rate. Heart Sounds: Normal. Gastrointestinal: Soft. Musculoskeletal Normal range of motion. Integumentary: Intact. Neurologic: Alert, Oriented. Review / Management Results review: No qualifying data available , Lab results 10/24/2024 10:10 EDT SN - Proc - Anesthesia Type General SN - Proc - Actual Procedure HEMORRHOIDECTOMY 10/24/2024 10:10 EDT SN - SP - Prep Agents Betadine Scrub SN - SP - HR - Method Clipped in OR 10/24/2024 10:09 EDT SN - DRS - Site and Details Anal tampon 10/24/2024 10:08 EDT SN - Cul - Culture Type No Specimen per Surgeon 10/24/2024 10:05 EDT Heart Rate Monitored 61 bpm bpm Respiratory Rate - Anes 0 br/min br/min Systolic Blood Pressure Non-Invasive 87 mmHg mmHg Diastolic Blood Pressure Non-Invasive 69 mmHg mmHg Oxygen Saturation 99 % % 10/24/2024 10:03 EDT Systolic Blood Pressure Non-Invasive 115 mmHg mmHg Diastolic Blood Pressure Non-Invasive 87 mmHg mmHg 10/24/2024 8:42 EDT SN - Preop - CTm Pt Ready for OR/Proced 10/24/2024 8:42 10/24/2024 8:42 EDT SN - Preop - CTm Pt in SDS Room 10/24/2024 8:05 10/24/2024 8:41 EDT Continuous IV Infusions lr Hand Left 20 gauge Peripheral IV Activity: Insert new site Peripheral IV Dressing Condition: Clean, Dry, Intact Peripheral IV Dressing Activity: Applied, Transparent dressing Peripheral IV Line Status/Patency: Flushes easily Peripheral IV Line Care: Secured with tape Peripheral IV Site Condition: No complications Peripheral IV Equipment: Extension set, PRN Adaptor Peripheral IV Number of Attempts: 1 Lactated Ringers Injection Begin Bag 1,000 mL mL 10/24/2024 8:40 EDT ibuprofen 800 mg mg 10/24/2024 8:33 EDT gabapentin 300 mg mg 10/24/2024 8:21 EDT Height 170 cm Admission Weight 95.5 kg [place] Body Weight 65.94 kg Temperature Temporal Artery 36.6 DegC Peripheral Pulse Rate 68 bpm Respiratory Rate 16 br/min Systolic Blood Pressure Non-Invasive 119 mmHg Diastolic Blood Pressure Non-Invasive 84 mmHg Primary Pain Intensity 0 Pain Scale Type 0-10 Pain scale Heart Rhythm Regular Oxygen Therapy Room air Oxygen Saturation 93 % Abdomen Description Non-distended, Soft, Rounded Bowel Sounds All Quadrants Present Urinary Elimination Voiding, no difficulties Skin Description Normal for ethnicity Skin Temperature Warm Skin Integrity Intact IV Present Present Extremity Movement Equal Characteristics of Speech Clear Level of Consciousness Alert MUSA Yes Strength All Extremities Strong Tone All Extremities Normal Affect/Behavior Appropriate, Calm, Cooperative Orientation Oriented x 4 Anesthesia Extension Set Applied Yes Surgical Corsetier On Yes Consent Form Signed Yes Patient Dressed In Hospital gown, No undergarments Pre-op Preparation Jewelry removed History & Physical Update On Chart Yes History & Physical On Chart Yes Obstructive Sleep Apnea Assess Completed Yes Orientation Assessment Oriented x 4 Belongings At Bedside Shirt, Shoes, T-shirt, Undergarments Positioning Repositions self Activity Status ADL Awake, Up ad bello Sequential Compression Device bilateral knee high applied/on NPO Status Maintained, More than 8 hours Standard Safety ID band on, Bed in low position, Wheels locked Patient ID Band on and Verified Yes Implants Verified No Site Verified by Patient/Family Yes Anesthesia Consent Signed Yes Blood Consent Signed Yes Last Fluid Intake 10/23/2024 23:00 Last Food Intake 10/23/2024 22:00 Last Void 10/24/2024 8:24 10/24/2024 8:18 EDT Designated Person #1 We May Share PHI Brian De León [phone] Designated Person #1 Relationship Spouse Privacy Restrictions Requested None Status N/A Sensory Deficits None Sleep Apnea Snore Yes Sleep Apnea Tired No Sleep Apnea Obstruction No Sleep Apnea Pressure No Sleep Apnea BMI No Sleep Apnea Age No Sleep Apnea Neck No Sleep Apnea Gender Yes Sleep Apnea Score 2 Diagnosed With Sleep Apnea No Advanced Directives No - refuses information Infectious Disease Symptoms Patient states no symptoms Infectious Disease Recent Exposure No Alcohol and Drug Use No Employee of Institutional Living No Health Care Employee No History of Exposure to TB No History of Positive Chest X-Ray for TB No History of Positive TB Skin Test No Homeless No Known Immunosuppression No Recent Immigrant No Resident of Institutional Living No Bloody Sputum No Fatigue No Fever No Loss of Appetite No Night Sweats No Persistent Cough > 3 Weeks No Weight Loss No Pre-Op Patient Education NPO after midnight, No smoking after midnight, No jewelry, Responsible Republican, Aware of surgery location, Pre-op education done, No ordered medications, SSI prevention handout given SN - Preprocedure Comments Spoke with patient, Verbalizes/Nonverbally indicates understanding Barriers to Learning None evident Teaching Method Explanation Preferred Spoken Language [place] Preferred Written Language [place] Teaching Evaluation No further teaching needed Safety Brochure Information Reviewed Yes [facility] [employer] Video Viewed No Patient's Current Physicians [facility]NER History of Malignant Hyperthermia No Discharge To, Anticipated Home independently Prev Test Positive/Diagnosis w/COVID-19 No Current Quarantine/Isolated any Illness No Any Contact with Sick Animals/Birds No Traveled Anywhere in Last 30 Days No Lost Weight Unintentionally Recently No Eat Poorly Due to Decreased Appetite No Total MST Score 0 N/A Personal Devices, Patient Valuables Glasses Anesthesia/Transfusions Prior anesthesia Admission Note-Nursing Same Day Patient History 10/24/2024 7:31 EDT SN - PP - Body Position Lithotomy Standard Intra-op 10/24/2024 7:30 EDT SN - [facility] - Anti-thromboembolism Emily Sequential Compression Device (SCD) 10/24/2024 7:29 EDT SN - Assess - LOC Alert, Awake SN - Assess - Orientation Oriented X 3 SN - Assess - Post-op Skin Integrity Intact/Dry 10/24/2024 7:28 EDT SN - CAt - Case Attendee SN - CAt - Case Attendee SN - CAt - Role Performed [facility] 10/24/2024 7:28 EDT SN - GCD - Post-operative Diagnosis HEMORRHOIDS SN - GCD - Case Level Level 2 10/24/2024 7:27 EDT SN - CAt - Case Attendee SN - CAt - Case Attendee SN - CAt - Case Attendee SN - CAt - Case Attendee SN - CAt - Case Attendee SN - CAt - Case Attendee SN - CAt - Case Attendee SN - CAt - Case Attendee SN - CAt - Role Performed Primary Surgeon SN - CAt - Role Performed Hand Packager 1 SN - CAt - Role Performed Film Sound Coordinator 1 SN - CAt - Role Performed Scrub 1 . Assessment and Plan [place] [employer] Anesthesiologists (ASA) physical status classification: Class III. Anesthetic Preoperative Plan Premedication: intravenous. Anesthetic technique: General. Induction: intravenously. Maintenance airway: Laryngeal mask airway. Postoperative pain management: Per surgeon. Risks discussed: nausea, vomiting, sore throat. Informed consent: signed by patient. Digitally Signed by MARICHUY TEJEDA on 10/24/2024 10:16 AM [facility] 06-22-2023 Hospital Discharge instructions Patient Education 06/22/2023 10:09:07 General Anesthesia, Adult, Care After General Anesthesia, Adult, Care After This sheet gives you information about how to care for yourself after your procedure. Your health care provider may also give you more specific instructions. If you have problems or questions, contact your health care provider. What can I expect after the procedure? After the procedure, the following side effects are common: Pain or discomfort at the IV site. Nausea. Vomiting. Sore throat. Trouble concentrating. Feeling cold or chills. Weak or tired. Sleepiness and fatigue. Soreness and body aches. These side effects can affect parts of the body that were not involved in surgery. Follow these instructions at home: For at least 24 hours after the procedure: Have a responsible adult stay with you. It is important to have someone help care for you until you are awake and alert. Rest as needed. Do not: ?Participate in activities in which you could fall or become injured. ?Drive. ?Use heavy machinery. ?Drink alcohol. ?Take sleeping pills or medicines that cause drowsiness. ?Make important decisions or sign legal documents. ?Take care of children on your own. Eating and drinking Follow any instructions from your health care provider about eating or drinking restrictions. When you feel hungry, start by eating small amounts of foods that are soft and easy to digest (bland), such as toast. Gradually return to your regular diet. Drink enough fluid to keep your urine pale yellow. If you vomit, rehydrate by drinking water, juice, or clear broth. General instructions If you have sleep apnea, surgery and certain medicines can increase your risk for breathing problems. Follow instructions from your health care provider about wearing your sleep device: ?Anytime you are sleeping, including during daytime naps. ?While taking prescription pain medicines, sleeping medicines, or medicines that make you drowsy. Return to your normal activities as told by your health care provider. Ask your health care provider what activities are safe for you. Take qugx-mae-cwxtpss and prescription medicines only as told by your health care provider. If you smoke, do not smoke without supervision. Keep all follow-up visits as told by your health care provider. This is important. Contact a health care provider if: You have nausea or vomiting that does not get better with medicine. You cannot eat or drink without vomiting. You have pain that does not get better with medicine. You are unable to pass urine. You develop a skin rash. You have a fever. You have redness around your IV site that gets worse. Get help right away if: You have difficulty breathing. You have chest pain. You have blood in your urine or stool, or you vomit blood. Summary After the procedure, it is common to have a sore throat or nausea. It is also common to feel tired. Have a responsible adult stay with you for the first 24 hours after general anesthesia. It is important to have someone help care for you until you are awake and alert. When you feel hungry, start by eating small amounts of foods that are soft and easy to digest (bland), such as toast. Gradually return to your regular diet. Drink enough fluid to keep your urine pale yellow. Return to your normal activities as told by your health care provider. Ask your health care provider what activities are safe for you. This information is not intended to replace advice given to you by your health care provider. Make sure you discuss any questions you have with your health care provider. Document Released: 08/21/2001 Document Revised: 05/18/2018 Document Reviewed: 12/29/2017 [email or web address] Patient Education 2020 [email or web address] 06/22/2023 10:08:21 How to Use Compression Stockings How to Use Compression Stockings Compression stockings are elastic socks that squeeze the legs. They help increase blood flow (circulation) to the legs, decrease swelling in the legs, and reduce the chance of developing blood clots in the lower legs. Compression stockings are often used by people who: Are recovering from surgery. Have poor circulation in their legs. Tend to get blood clots in their legs. Have bulging (varicose) veins. Sit or stay in bed for long periods of time. Follow instructions from your health care provider about how and when to wear your compression stockings. How to wear compression stockings Before you put on your compression stockings: Make sure that they are the correct size and degree of compression. If you do not know your size or required grade of compression, ask your health care provider and follow the crane mechanic's instructions that come with the stockings. Make sure that they are clean, dry, and in good condition. Check them for rips and tears. Do not put them on if they are ripped or torn. Put your stockings on first thing in the morning, before you get out of bed. Keep them on for as long as your health care provider advises. When you are wearing your stockings: Keep them as smooth as possible. Do not allow them to bunch up. It is especially important to prevent the stockings from bunching up around your toes or behind your knees. Do not roll the stockings downward and leave them rolled down. This can decrease blood flow to your leg. Change them right away if they become wet or dirty. When you take off your stockings, inspect your legs and feet. Check for: Open sores. Red spots. Swelling. General tips Do not stop wearing compression stockings without talking to your health care provider first. Wash your stockings every day with mild detergent in cold or warm water. Do not use bleach. Air-dry your stockings or dry them in a clothes dryer on low heat. It may be helpful to have two pairs so that you have a pair to wear while the other is being washed. Replace your stockings every 3 6 months. If skin moisturizing is part of your treatment plan, apply lotion or cream at night so that your skin will be dry when you put on the stockings in the morning. It is harder to put the stockings on when you have lotion on your legs or feet. Wear nonskid shoes or slip-resistant socks when walking while wearing compression stockings. Contact a health care provider and remove your stockings if you have: A feeling of pins and needles in your feet or legs. Open sores, red spots, or other skin changes on your feet or legs. Swelling or pain that gets worse. Get help right away if you have: Numbness or tingling in your lower legs that does not get better right after you take the stockings off. Toes or feet that are unusually cold or turn a bluish color. A warm or red area on your leg. New swelling or soreness in your leg. Shortness of breath. Chest pain. A fast or irregular heartbeat. Light-headedness. Dizziness. Summary Compression stockings are elastic socks that squeeze the legs. They help increase blood flow (circulation) to the legs, decrease swelling in the legs, and reduce the chance of developing blood clots in the lower legs. Follow instructions from your health care provider about how and when to wear your compression stockings. Do not stop wearing your compression stockings without talking to your health care provider first. This information is not intended to replace advice given to you by your health care provider. Make sure you discuss any questions you have with your health care provider. Document Released: 03/12/2010 Document Revised: 05/17/2018 Document Reviewed: 05/17/2018 [email or web address] Patient Education 2020 [employer]. 06/22/2023 10:08:10 Deep Vein Thrombosis Deep Vein Thrombosis Deep vein thrombosis (DVT) is a condition in which a blood clot forms in a deep vein, such as a lower leg, thigh, or arm vein. A clot is blood that has thickened into a gel or solid. This condition is dangerous. It can lead to serious and even life-threatening complications if the clot travels to the lungs and causes a blockage (pulmonary embolism). It can also damage veins in the leg. This can result in leg pain, swelling, discoloration, and sores (post-thrombotic syndrome). What are the causes? This condition may be caused by: A slowdown of blood flow. Damage to a vein. A condition that causes blood to clot more easily, such as an inherited clotting disorder. What increases the risk? The following factors may make you more likely to develop this condition: Being overweight. Being older, especially over age 60. Sitting or lying down for more than four hours. Being in the hospital. Lack of physical activity (sedentary lifestyle). , being in childbirth, or having recently given . Taking medicines that contain estrogen, such as medicines to prevent . Smoking. A history of any of the following: ?Blood clots or a blood clotting disease. ?Peripheral vascular disease. ?Inflammatory bowel disease. ?Cancer. ?Heart disease. ?Genetic conditions that affect how your blood clots, such as Factor V Leiden mutation. ?Neurological diseases that affect your legs (leg paresis). ?A recent injury, such as a car accident. ?Major or lengthy surgery. ?A central line placed inside a large vein. What are the signs or symptoms? Symptoms of this condition include: Swelling, pain, or tenderness in an arm or leg. Warmth, redness, or discoloration in an arm or leg. If the clot is in your leg, symptoms may be more noticeable or worse when you stand or walk. Some people may not develop any symptoms. How is this diagnosed? This condition is diagnosed with: A medical history and physical exam. Tests, such as: ?Blood tests. These are done to check how well your blood clots. ?Ultrasound. This is done to check for clots. ?Venogram. For this test, contrast dye is injected into a vein and X-rays are taken to check for any clots. How is this treated? Treatment for this condition depends on: The cause of your DVT. Your risk for bleeding or developing more clots. Any other medical conditions that you have. Treatment may include: Taking a blood thinner (anticoagulant). This type of medicine prevents clots from forming. It may be taken by mouth, injected under the skin, or injected through an IV (catheter). Injecting clot-dissolving medicines into the affected vein (catheter-directed thrombolysis). Having surgery. Surgery may be done to: ?Remove the clot. ?Place a filter in a large vein to catch blood clots before they reach the lungs. Some treatments may be continued for up to six months. Follow these instructions at home: If you are taking blood thinners: Take the medicine exactly as told by your health care provider. Some blood thinners need to be taken at the same time every day. Do not skip a dose. Talk with your health care provider before you take any medicines that contain aspirin or NSAIDs. These medicines increase your risk for dangerous bleeding. Ask your health care provider about foods and drugs that could change the way the medicine works (may interact). Avoid those things if your health care provider tells you to do so. Blood thinners can cause easy bruising and may make it difficult to stop bleeding. Because of this: ?Be very careful when using knives, scissors, or other sharp objects. ?Use an electric razor instead of a blade. ?Avoid activities that could cause injury or bruising, and follow instructions about how to prevent falls. Wear a medical alert bracelet or carry a card that lists what medicines you take. General instructions Take bwqa-hae-tfgqzet and prescription medicines only as told by your health care provider. Return to your normal activities as told by your health care provider. Ask your health care provider what activities are safe for you. Wear compression stockings if recommended by your health care provider. Keep all follow-up visits as told by your health care provider. This is important. How is this prevented? To lower your risk of developing this condition again: For 30 or more minutes every day, do an activity that: ?Involves moving your arms and legs. ?Increases your heart rate. When traveling for longer than four hours: ?Exercise your arms and legs every hour. ?Drink plenty of water. ?Avoid drinking alcohol. Avoid sitting or lying for a long time without moving your legs. If you have surgery or you are hospitalized, ask about ways to prevent blood clots. These may include taking frequent walks or using anticoagulants. Stay at a healthy weight. If you are a woman who is older than age 35, avoid unnecessary use of medicines that contain estrogen, such as some control pills. Do not use any products that contain nicotine or tobacco, such as cigarettes and e-cigarettes. This is especially important if you take estrogen medicines. If you need help quitting, ask your health care provider. Contact a health care provider if: You miss a dose of your blood thinner. Your menstrual period is heavier than usual. You have unusual bruising. Get help right away if: You have: ?New or increased pain, swelling, or redness in an arm or leg. ?Numbness or tingling in an arm or leg. ?Shortness of breath. ?Chest pain. ?A rapid or irregular heartbeat. ?A severe headache or confusion. ?A cut that will not stop bleeding. There is blood in your vomit, stool, or urine. You have a serious fall or accident, or you hit your head. You feel light-headed or dizzy. You cough up blood. These symptoms may represent a serious problem that is an emergency. Do not wait to see if the symptoms will go away. Get medical help right away. Call your local emergency services (911 in the [place] Do not drive yourself to the hospital. Summary Deep vein thrombosis (DVT) is a condition in which a blood clot forms in a deep vein, such as a lower leg, thigh, or arm vein. Symptoms can include swelling, warmth, pain, and redness in your leg or arm. This condition may be treated with a blood thinner (anticoagulant medicine), medicine that is injected to dissolve blood clots,compression stockings, or surgery. If you are prescribed blood thinners, take them exactly as told. This information is not intended to replace advice given to you by your health care provider. Make sure you discuss any questions you have with your health care provider. Document Released: 05/15/2006 Document Revised: 04/27/2018 Document Reviewed: 10/13/2017 [employer] Patient Education 2020 [employer]. 06/22/2023 10:08:05 How to Use an Incentive Spirometer How To Use an Incentive Spirometer An incentive spirometer is a tool that measures how well you are filling your lungs with each breath. Learning to take long, deep breaths using this tool can help you keep your lungs clear and active. This may help to reverse or lessen your chance of developing breathing (pulmonary) problems, especially infection. You may be asked to use a spirometer: After a surgery. If you have a lung problem or a history of smoking. After a long period of time when you have been unable to move or be active. If the spirometer includes an indicator to show the highest number that you have reached, your health care provider or respiratory therapist will help you set a goal. Keep a list (log) of your progress as told by your health care provider. What are the risks? Breathing too quickly may cause dizziness or cause you to pass out. Take your time so you do not get dizzy or light-headed. If you are in pain, you may need to take pain medicine before doing incentive spirometry. It is harder to take a deep breath if you are having pain. How to use your incentive spirometer 1.Sit up on the edge of your bed or on a chair. 2.Hold the incentive spirometer so that it is in an upright position. 3.Before you use the spirometer, breathe out normally. 4.Place the mouthpiece in your mouth. Make sure your lips are closed tightly around it. 5.Breathe in slowly and as deeply as you can through your mouth, causing the piston or the ball to rise toward the top of the chamber. 6.Hold your breath for 3 5 seconds, or for as long as possible. If the spirometer includes a lean coach indicator, use this to guide you in breathing. Slow down your breathing if the indicator goes above the marked areas. 7.Remove the mouthpiece from your mouth and breathe out normally. The piston or ball will return to the bottom of the chamber. 8.Rest for a few seconds, then repeat the steps 10 or more times. Take your time and take a few normal breaths between deep breaths so that you do not get dizzy or light-headed. Do this every 1 2 hours when you are awake. 9.If the spirometer includes a goal marker to show the highest number you have reached (best effort), use this as a goal to work toward during each repetition. 10.After each set of 10 deep breaths, cough a few times. This will help to make sure that your lungs are clear. If you have an incision on your chest or abdomen from surgery, place a pillow or a rolled-up towel firmly against the incision when you cough. This can help to reduce pain from coughing. General tips When you become able to get out of bed, walk around often and continue to cough to help clear your lungs. Keep using the incentive spirometer until your health care provider says it is okay to stop using it. If you have been in the hospital, you may be told to keep using the spirometer at home. Contact a health care provider if: You are having difficulty using the spirometer. You have trouble using the spirometer as often as instructed. Your pain medicine is not giving enough relief for you to use the spirometer as told. You have a fever. You develop shortness of breath. Get help right away if: You develop a cough with bloody mucus from the lungs (bloody sputum). You have fluid or blood coming from an incision site after you cough. Summary An incentive spirometer is a tool that can help you learn to take long, deep breaths to keep your lungs clear and active. You may be asked to use a spirometer after a surgery, if you have a lung problem or a history of smoking, or if you have been inactive for a long period of time. Use your incentive spirometer as instructed every 1 2 hours while you are awake. If you have an incision on your chest or abdomen, place a pillow or a rolled-up towel firmly against your incision when you cough. This will help to reduce pain. This information is not intended to replace advice given to you by your health care provider. Make sure you discuss any questions you have with your health care provider. Document Released: 09/25/2007 Document Revised: 06/07/2018 Document Reviewed: 03/28/2018 [employer] Patient Education 2020 [employer]. 06/22/2023 10:07:58 Laparoscopic Cholecystectomy, Care After, Inxl-da-Opqc Laparoscopic Cholecystectomy, Care After This sheet gives you information about how to care for yourself after your procedure. Your doctor may also give you more specific instructions. If you have problems or questions, contact your doctor. Follow these instructions at home: Care for cuts from surgery (incisions) Follow instructions from your doctor about how to take care of your cuts from surgery. Make sure you: ?Wash your hands with soap and water before you change your bandage (dressing). If you cannot use soap and water, use hand marshmallow maker. ?Change your bandage as told by your doctor. ?Leave stitches (sutures), skin glue, or skin tape (adhesive) strips in place. They may need to stay in place for 2 weeks or longer. If tape strips get loose and curl up, you may trim the loose edges. Do not remove tape strips completely unless your doctor says it is okay. Do not take baths, swim, or use a hot tub until your doctor says it is okay. Ask your doctor if you can take showers. You may only be allowed to take sponge baths for bathing. Check your surgical cut area every day for signs of infection. Check for: ?More redness, swelling, or pain. ?More fluid or blood. ?Warmth. ?Pus or a bad smell. Activity Do not drive or use heavy machinery while taking prescription pain medicine. Do not lift anything that is heavier than 10 lb (4.5 kg) until your doctor says it is okay. Do not play contact sports until your doctor says it is okay. Do not drive for 24 hours if you were given a medicine to help you relax (sedative). Rest as needed. Do not return to work or school until your doctor says it is okay. General instructions Take sloe-mnz-oepitsj and prescription medicines only as told by your doctor. To prevent or treat constipation while you are taking prescription pain medicine, your doctor may recommend that you: ?Drink enough fluid to keep your pee (urine) clear or pale yellow. ?Take pjlh-bgn-jkpcryf or prescription medicines. ?Eat foods that are high in fiber, such as fresh fruits and vegetables, whole grains, and beans. ?Limit foods that are high in fat and processed sugars, such as fried and sweet foods. Contact a doctor if: You develop a rash. You have more redness, swelling, or pain around your surgical cuts. You have more fluid or blood coming from your surgical cuts. Your surgical cuts feel warm to the touch. You have pus or a bad smell coming from your surgical cuts. You have a fever. One or more of your surgical cuts breaks open. Get help right away if: You have trouble breathing. You have chest pain. You have pain that is getting worse in your shoulders. You faint or feel dizzy when you stand. You have very bad pain in your belly (abdomen). You are sick to your stomach (nauseous) for more than one day. You have throwing up (vomiting) that lasts for more than one day. You have leg pain. This information is not intended to replace advice given to you by your health care provider. Make sure you discuss any questions you have with your health care provider. Document Released: 02/21/2009 Document Revised: 04/27/2018 Document Reviewed: 10/31/2016 [employer] Patient Education 2020 [employer]. 06/22/2023 10:07:48 How to Use Cold Therapy, Ggoi-ye-Nepx How to Use Cold Therapy Cold therapy, or cryotherapy, is a treatment that uses cold temperatures to treat an injury or medical condition. It includes using cold packs or ice packs to reduce pain and swelling. Only use cold therapy if your doctor says it is okay. What are the risks? Generally, cold therapy is a safe treatment. However, it is not safe for: People who are not able to say they are in pain. These include small children and people who have memory problems. People who have certain conditions, such as: ?A problem in the vessels that slows blood flow to the fingers and toes (Raynaud's syndrome). ?Feeling very cold easily (cold hypersensitivity). ?Lack of feeling in the area being iced. Cold therapy may not be safe for people who have other conditions. Do not use it without talking to your doctor if you have: A heart condition. High blood pressure. Open or healing wounds. An infection. Pain and swelling in your joints (rheumatoid arthritis). Poor blood flow in the body. Diabetes. Certain skin conditions. How can I make a cold pack? When using a cold pack at home to reduce pain and swelling, you can use: A silica gel cold pack that has been left in the freezer. You can buy this online or in stores. A sealable plastic bag that has been filled with crushed ice. A washcloth or paper towels soaked in cold (or ice) water. A plastic bag of frozen vegetables. Throw them away when you are finished using them as a cold pack. Supplies needed: A cold pack. A towel. This can be dry or damp, based on what you like. How to use cold therapy 1.Have your cold pack ready. 2.Place a towel between the cold pack and your skin. You may also wrap the cold pack in a towel. 3.Put the cold pack on the affected area. Keep it on for no more than 20 minutes at a time. 4.Check your skin after 5 minutes to make sure that there is no damage to the area. Check for: White spots on your skin. Your skin may look blotchy or mottled. Skin that looks blue or pale. Skin that feels waxy or hard. 5.Repeat these steps as many times each day as told by your doctor. Always use a towel to avoid direct contact with your skin. Contact a doctor if: You start to have white spots on your skin. This may give your skin a blotchy or mottled look. Your skin turns blue or pale. Your skin becomes waxy or hard. Your swelling gets worse. Summary Cold therapy, or cryotherapy, is used to treat an injury or other conditions. It includes using cold packs or ice packs to reduce pain and swelling. Cold therapy is not safe for people who are not able to say they are in pain. When using cold packs or ice packs, always place a towel between the cold source and your skin. Check your skin after 5 minutes of icing it. This is to make sure that there is no skin damage. Contact your doctor if you notice changes in your skin or your swelling gets worse. This information is not intended to replace advice given to you by your health care provider. Make sure you discuss any questions you have with your health care provider. Document Released: 10/31/2008 Document Revised: 02/11/2019 Document Reviewed: 02/11/2019 [employer] Patient Education 2020 [employer]. Follow Up Care 05/19/2023 11:28:59 With:KENNETH MADCONALD MD, Surgery Address: [address] [facility] [place] [address] [phone] When: Unknown Comments:CALL DR MACDONALD'S OFFICE TO MAKEA 2 WEEK FOLLOW UP APPOINTMENT AND WITH ANY CONCERNS. GO TO THE EMERGENCY ROOM WITH ANY URGENT CONCERNS. [facility] 06-22-2023 Note Discharge Instructions Thank you for allowing [facility] to assist you with your healthcare needs. The following is important discharge information regarding your hospital visit. Your Care Team LILIANA CONNER MD Your Diagnosis Acute post-operative pain What to do next Follow Up Appointments Follow Up with KENNETH MACDONALD MD, Surgery When Why: CALL DR MACDONALD'S OFFICE TO MAKEA 2 WEEK FOLLOW UP APPOINTMENT AND WITH ANY CONCERNS. GO TO THE EMERGENCY ROOM WITH ANY URGENT CONCERNS. Where: [address] [facility] [place] [address]- [phone] The Following Activity and Diet Have Been Ordered for You Discharge Activity - Ordered -- Sexual [place] Restricted No bending, twisting, crawling or squatt, No shower or tub bath for 2 days; no driving for 5 days, no lifting >15 lbs, 06/22/23 9:42:00 EST Discharge Diet - Ordered -- Follow the post-operative/post-procedure diet instructions provided by your physician's office., 06/22/23 9:42:00 EST The Following Equipment Has Been Ordered for You Discharge Home Equipment Discharge Wound Care - Ordered -- Dressing Type: Dry sterile drsg, Remove dressing in two (2) days. Leave steristrips on until they fall off, 06/22/23 9:42:00 EST The Following Treatments Have Been Ordered for You Discharge Labs No qualifying data available. Discharge Radiology No qualifying data available. Other Therapies No qualifying data available. Post Acute Orders No qualifying data available. Someone Will Contact You Regarding These Home Health Referrals No home referrals have been ordered for you. No one will call you. Allergies NKA Medications Please ask your primary doctor or pharmacist before taking any other medication not listed, including over the counter drugs, herbal medications, vitamins and or supplements as they may interact with your home medications. What How Much When Why Instructions Last Dose New acetaminophen-hydrocodone ([place] 325- 5 mg oral tablet) 1 tab(s) by mouth Every 4 hours as needed for Pain, scale 1-6 Acute post-operative pain Duration: 5 Days Pickup at [facility]/pharmacy #[id number] Unchanged pantoprazole (pantoprazole 40 mg oral enteric coated tablet) 1 tab(s) by mouth Once a day Abdominal pain Abdominal distention Pharmacy Information [facility]/pharmacy #[id number]: [address], [place] [phone] Please take this list to your next doctor s visit. Bring all medications you take, including over the counter medications, herbals and other supplements with you to your doctor s visit. Patients and families are reminded to discard old lists and to update any records with all medication providers or retail pharmacies. Medication Leaflets acetaminophen and hydrocodone (a SEET a MIN [place] fen and holly SHERIDAN done) Lortab Elixir, Verdrocet What is the most important information I should know about acetaminophen and hydrocodone? MISUSE OF OPIOID MEDICINE CAN CAUSE ADDICTION, OVERDOSE, OR . Keep the medication in a place where others cannot get to it. Taking opioid medicine during may cause life-threatening withdrawal symptoms in the . Fatal side effects can occur if you use opioid medicine with alcohol, or with other drugs that cause drowsiness or slow your breathing. Stop taking this medicine and call your doctor right away if you have skin redness or a rash that spreads and causes blistering and peeling. What is acetaminophen and hydrocodone? Acetaminophen and hydrocodone is a combination medicine used to relieve moderate to severe pain. Acetaminophen and hydrocodone contains an opioid medicine, and may be habit-forming. Acetaminophen and hydrocodone may also be used for purposes not listed in this medication guide. What should I discuss with my healthcare provider before taking acetaminophen and hydrocodone? You should not use this medicine if you are allergic to acetaminophen or hydrocodone, or if you have: severe asthma or breathing problems; or a blockage in your stomach or intestines. Tell your doctor if you have ever had: breathing problems, sleep apnea (breathing stops during sleep); liver disease; a drug or alcohol addiction; kidney disease; a head injury or seizures; urination problems; or problems with your thyroid, pancreas, or gallbladder. If you use opioid medicine while you are , your baby could become dependent on the drug. This can cause life-threatening withdrawal symptoms in the baby after it is born. Babies born dependent on opioids may need medical treatment for several weeks. Ask a doctor before using opioid medicine if you are . Tell your doctor if you notice severe drowsiness or slow breathing in the nursing baby. How should I take acetaminophen and hydrocodone? Follow all directions on your prescription label. Never take this medicine in larger amounts, or for longer than prescribed. An overdose can damage your liver or cause . Tell your doctor if you feel an increased urge to use more of this medicine. Never share this medicine with another person, especially someone with a history of drug abuse or addiction. MISUSE CAN CAUSE ADDICTION, OVERDOSE, OR . Keep the medicine in a place where others cannot get to it. Selling or giving away this medicine is against the law. Measure liquid medicine carefully. Use the dosing syringe provided, or use a medicine dose-measuring device (not a kitchen spoon). If you need surgery or medical tests, tell the doctor ahead of time that you are using this medicine. You should not stop using this medicine suddenly. Follow your doctor's instructions about tapering your dose. Store at room temperature away from moisture and heat. Keep track of your medicine. You should be aware if anyone is using it improperly or without a prescription. Do not keep leftover opioid medication. Just one dose can cause in someone using this medicine accidentally or improperly. Ask your pharmacist where to locate a drug take-back disposal program. If there is no take-back program, flush the unused medicine down the toilet. What happens if I miss a dose? Since this medicine is used for pain, you are not likely to miss a dose. Skip any missed dose if it is almost time for your next dose. Do not use two doses at one time. What happens if I overdose? Seek emergency medical attention or call the Poison Help line at . An overdose of this medicine can be fatal, especially in a child or other person using the medicine without a prescription. Overdose symptoms may include nausea, vomiting, sweating, severe drowsiness, pinpoint pupils, slow breathing, or no breathing. Your doctor may recommend you get naloxone (a medicine to reverse an opioid overdose) and keep it with you at all times. A person caring for you can give the naloxone if you stop breathing or don't wake up. Your caregiver must still get emergency medical help and may need to perform CPR (cardiopulmonary resuscitation) on you while waiting for help to arrive. Anyone can buy naloxone from a pharmacy or local health department. Make sure any person caring for you knows where you keep naloxone and how to use it. What should I avoid while taking acetaminophen and hydrocodone? Avoid driving or operating machinery until you know how this medicine will affect you. Dizziness or drowsiness can cause falls, accidents, or severe injuries. Do not drink alcohol. Dangerous side effects or could occur. Ask a doctor or pharmacist before using any other medicine that may contain acetaminophen (sometimes abbreviated as APAP). Taking certain medications together can lead to a fatal overdose. What are the possible side effects of acetaminophen and hydrocodone? Get emergency medical help if you have signs of an allergic reaction: hives; difficulty breathing; swelling of your face, lips, tongue, or throat. Opioid medicine can slow or stop your breathing, and may occur. A person caring for you should give naloxone and/or seek emergency medical attention if you have slow breathing with long pauses, blue colored lips, or if you are hard to wake up. In rare cases, acetaminophen may cause a severe skin reaction that can be fatal. This could occur even if you have taken acetaminophen in the past and had no reaction. Stop taking this medicine and call your doctor right away if you have skin redness or a rash that spreads and causes blistering and peeling. Call your doctor at once if you have: noisy breathing, sighing, shallow breathing, breathing that stops; a light-headed feeling, like you might pass out; liver problems--nausea, upper stomach pain, tiredness, loss of appetite, dark urine, corky-colored stools, jaundice (yellowing of the skin or eyes); low cortisol levels-- nausea, vomiting, loss of appetite, dizziness, worsening tiredness or weakness; o high levels of serotonin in the body--agitation, hallucinations, fever, sweating, shivering, fast heart rate, muscle stiffness, twitching, loss of coordination, nausea, vomiting, diarrhea. Serious breathing problems may be more likely in older adults and in those who are debilitated or have wasting syndrome or chronic breathing disorders. Common side effects include: dizziness, drowsiness, feeling tired; nausea, vomiting, stomach pain; constipation; or headache. This is not a complete list of side effects and others may occur. Call your doctor for medical advice about side effects. You may report side effects to FDA at 2-315-SCV-7360. What other drugs will affect acetaminophen and hydrocodone? You may have breathing problems or withdrawal symptoms if you start or stop taking certain other medicines. Tell your doctor if you also use an antibiotic, antifungal medication, heart or blood pressure medication, seizure medication, or medicine to treat HIV or hepatitis C. Opioid medication can interact with many other drugs and cause dangerous side effects or . Be sure your doctor knows if you also use: cold or allergy medicines, bronchodilator asthma/COPD medication, or a diuretic ('water pill'); medicines for motion sickness, irritable bowel syndrome, or overactive bladder; other opioids--opioid pain medicine or prescription cough medicine; a sedative like Valium--diazepam, alprazolam, lorazepam, Xanax, Klonopin, Versed, and others; drugs that make you sleepy or slow your breathing--a sleeping pill, muscle relaxer, medicine to treat mood disorders or mental illness; drugs that affect serotonin levels in your body--a stimulant, or medicine for depression, Parkinson's disease, migraine headaches, serious infections, or nausea and vomiting. This list is not complete. Other drugs may affect acetaminophen and hydrocodone, including prescription and iqmq-alu-yyoljgi medicines, vitamins, and herbal products. Not all possible interactions are listed here. Where can I get more information? Your doctor or pharmacist can provide more information about acetaminophen and hydrocodone. Remember, keep this and all other medicines out of the reach of children, never share your medicines with others, and use this medication only for the indication prescribed. Every effort has been made to ensure that the information provided by [employer]') is accurate, up-to-date, and complete, but no guarantee is made to that effect. Drug information contained herein may be time sensitive. [employer] information has been compiled for use by healthcare practitioners and consumers in the [place] and therefore [employer] does not warrant that uses outside of the [place] are appropriate, unless specifically indicated otherwise. [employer] drug information does not endorse drugs, diagnose patients or recommend therapy. [employer] drug information is an informational resource designed to assist licensed healthcare practitioners in caring for their patients and/or to serve consumers viewing this service as a supplement to, and not a substitute for, the expertise, skill, knowledge and judgment of healthcare practitioners. The absence of a warning for a given drug or drug combination in no way should be construed to indicate that the drug or drug combination is safe, effective or appropriate for any given patient. [employer] does not assume any responsibility for any aspect of healthcare administered with the aid of information [employer] provides. The information contained herein is not intended to cover all possible uses, directions, precautions, warnings, drug interactions, allergic reactions, or adverse effects. If you have questions about the drugs you are taking, check with your doctor, nurse or pharmacist. Copyright 1966-3967 [employer]. Version: 19.01. Revision Date: 01/16/2023. bupivacaine liposome (dakota amaya some) Exparel What is the most important information I should know about bupivacaine liposome? You may still feel numb or be unable to move the numbed area for up to 5 days after you are treated with bupivacaine liposome. What is bupivacaine liposome? Bupivacaine is an anesthetic (numbing medicine) that blocks nerve impulses in your body. Bupivacaine liposome is used as a local (in only one area) anesthetic to numb an area of your body for a minor surgery such as bunion removal or hemorrhoid surgery. Bupivacine liposome is also used as a nerve block after surgery on your shoulder or upper arm, to provide pain relief to the area. Bupivacaine may also be used for purposes not listed in this medication guide. What should I discuss with my healthcare provider before receiving bupivacaine liposome? You should not be treated with bupivacaine if you are allergic to it. Tell your doctor if you have ever had: an allergic reaction to any type of numbing medicine; liver disease; kidney disease; heart disease; a heart rhythm disorder; or seizures. It is not known whether this medicine will harm an unborn baby. Tell your doctor if you are . It may not be safe to breast-feed a baby while you are using this medicine. Ask your doctor about any risks. How is bupivacaine liposome given? Bupivacaine is given as an injection placed into an area near your surgical incision. You will receive this injection in a hospital or surgical setting. Bupivacaine liposome can have long-lasting or delayed effects. For at least 4 days (96 hours) after your surgery, tell any doctor or dentist who treats you that you recently received a bupivacaine liposome injection. Call your doctor if you have joint pain or stiffness, or weakness in any part of your body that occurs after your surgery, even months later. What happens if I miss a dose? Since bupivacaine liposome is used as a single dose, it does not have a daily dosing schedule. What happens if I overdose? Since this medication is given by a healthcare professional in a medical setting, an overdose is unlikely to occur. What should I avoid after receiving bupivacaine liposome? For at least 4 days (96 hours) after surgery, avoid using any pain or numbing medicines that contain lidocaine. This includes skin patches, sprays, creams, ointments, or gels applied to the skin. Follow your doctor's instructions. What are the possible side effects of bupivacaine liposome? Get emergency medical help if you have signs of an allergic reaction: hives, red rash, itching; sneezing, difficulty breathing; severe dizziness, vomiting; swelling of your face, lips, tongue, or throat. You will be watched closely after receiving bupivacaine liposome, to make sure you do not have a reaction to the medicine. Tell your caregivers at once if you have any of these signs of a serious side effect: ringing in your ears; drowsiness, feeling restless or anxious; feeling like you might pass out; speech or vision problems, a metallic taste in your mouth; numbness or tingling around your mouth; fast or slow heart rate, feeling short of breath, feeling unusually hot or cold; tremors, twitching, mood changes; ongoing numbness, weakness, or loss of movement where the medicine was injected; or joint pain or stiffness, or weakness in any part of your body for months after your surgery. You may still feel numb or be unable to move the numbed area for up to 5 days after you are treated with bupivacaine liposome. Common side effects include: nausea, vomiting; constipation; or fever. This is not a complete list of side effects and others may occur. Call your doctor for medical advice about side effects. You may report side effects to FDA at 2-973-OGU-7920. What other drugs will affect bupivacaine liposome? Other drugs may affect bupivacaine liposome, including prescription and bxif-gnz-rrkqchy medicines, vitamins, and herbal products. Tell your doctor about all your current medicines and any medicine you start or stop using. Where can I get more information? Your doctor or pharmacist can provide more information about bupivacaine liposome. Remember, keep this and all other medicines out of the reach of children, never share your medicines with others, and use this medication only for the indication prescribed. Every effort has been made to ensure that the information provided by [employer] is accurate, up-to-date, and complete, but no guarantee is made to that effect. Drug information contained herein may be time sensitive. [employer] information has been compiled for use by healthcare practitioners and consumers in the [place] and therefore [employer] does not warrant that uses outside of the [place] are appropriate, unless specifically indicated otherwise. [employer] drug information does not endorse drugs, diagnose patients or recommend therapy. [employer] drug information is an informational resource designed to assist licensed healthcare practitioners in caring for their patients and/or to serve consumers viewing this service as a supplement to, and not a substitute for, the expertise, skill, knowledge and judgment of healthcare practitioners. The absence of a warning for a given drug or drug combination in no way should be construed to indicate that the drug or drug combination is safe, effective or appropriate for any given patient. [employer] does not assume any responsibility for any aspect of healthcare administered with the aid of information [employer] provides. The information contained herein is not intended to cover all possible uses, directions, precautions, warnings, drug interactions, allergic reactions, or adverse effects. If you have questions about the drugs you are taking, check with your doctor, nurse or pharmacist. Copyright 0299-3034 [employer]. Version: 4.01. Revision Date: 09/18/2017. Education Materials General Anesthesia, Adult, Care After This sheet gives you information about how to care for yourself after your procedure. Your health care provider may also give you more specific instructions. If you have problems or questions, contact your health care provider. What can I expect after the procedure? After the procedure, the following side effects are common: Pain or discomfort at the IV site. Nausea. Vomiting. Sore throat. Trouble concentrating. Feeling cold or chills. Weak or tired. Sleepiness and fatigue. Soreness and body aches. These side effects can affect parts of the body that were not involved in surgery. Follow these instructions at home: For at least 24 hours after the procedure: Have a responsible adult stay with you. It is important to have someone help care for you until you are awake and alert. Rest as needed. Do not: ? Participate in activities in which you could fall or become injured. ? Drive. ? Use heavy machinery. ? Drink alcohol. ? Take sleeping pills or medicines that cause drowsiness. ? Make important decisions or sign legal documents. ? Take care of children on your own. Eating and drinking Follow any instructions from your health care provider about eating or drinking restrictions. When you feel hungry, start by eating small amounts of foods that are soft and easy to digest (bland), such as toast. Gradually return to your regular diet. Drink enough fluid to keep your urine pale yellow. If you vomit, rehydrate by drinking water, juice, or clear broth. General instructions If you have sleep apnea, surgery and certain medicines can increase your risk for breathing problems. Follow instructions from your health care provider about wearing your sleep device: ? Anytime you are sleeping, including during daytime naps. ? While taking prescription pain medicines, sleeping medicines, or medicines that make you drowsy. Return to your normal activities as told by your health care provider. Ask your health care provider what activities are safe for you. Take yffm-hud-omoquca and prescription medicines only as told by your health care provider. If you smoke, do not smoke without supervision. Keep all follow-up visits as told by your health care provider. This is important. Contact a health care provider if: You have nausea or vomiting that does not get better with medicine. You cannot eat or drink without vomiting. You have pain that does not get better with medicine. You are unable to pass urine. You develop a skin rash. You have a fever. You have redness around your IV site that gets worse. Get help right away if: You have difficulty breathing. You have chest pain. You have blood in your urine or stool, or you vomit blood. Summary After the procedure, it is common to have a sore throat or nausea. It is also common to feel tired. Have a responsible adult stay with you for the first 24 hours after general anesthesia. It is important to have someone help care for you until you are awake and alert. When you feel hungry, start by eating small amounts of foods that are soft and easy to digest (bland), such as toast. Gradually return to your regular diet. Drink enough fluid to keep your urine pale yellow. Return to your normal activities as told by your health care provider. Ask your health care provider what activities are safe for you. This information is not intended to replace advice given to you by your health care provider. Make sure you discuss any questions you have with your health care provider. Document Released: 08/21/2001 Document Revised: 05/18/2018 Document Reviewed: 12/29/2017 [email or web address] Patient Education 2020 [email or web address] How to Use Compression Stockings Compression stockings are elastic socks that squeeze the legs. They help increase blood flow (circulation) to the legs, decrease swelling in the legs, and reduce the chance of developing blood clots in the lower legs. Compression stockings are often used by people who: Are recovering from surgery. Have poor circulation in their legs. Tend to get blood clots in their legs. Have bulging (varicose) veins. Sit or stay in bed for long periods of time. Follow instructions from your health care provider about how and when to wear your compression stockings. How to wear compression stockings Before you put on your compression stockings: Make sure that they are the correct size and degree of compression. If you do not know your size or required grade of compression, ask your health care provider and follow the crane mechanic's instructions that come with the stockings. Make sure that they are clean, dry, and in good condition. Check them for rips and tears. Do not put them on if they are ripped or torn. Put your stockings on first thing in the morning, before you get out of bed. Keep them on for as long as your health care provider advises. When you are wearing your stockings: Keep them as smooth as possible. Do not allow them to bunch up. It is especially important to prevent the stockings from bunching up around your toes or behind your knees. Do not roll the stockings downward and leave them rolled down. This can decrease blood flow to your leg. Change them right away if they become wet or dirty. When you take off your stockings, inspect your legs and feet. Check for: Open sores. Red spots. Swelling. General tips Do not stop wearing compression stockings without talking to your health care provider first. Wash your stockings every day with mild detergent in cold or warm water. Do not use bleach. Air-dry your stockings or dry them in a clothes dryer on low heat. It may be helpful to have two pairs so that you have a pair to wear while the other is being washed. Replace your stockings every 3 6 months. If skin moisturizing is part of your treatment plan, apply lotion or cream at night so that your skin will be dry when you put on the stockings in the morning. It is harder to put the stockings on when you have lotion on your legs or feet. Wear nonskid shoes or slip-resistant socks when walking while wearing compression stockings. Contact a health care provider and remove your stockings if you have: A feeling of pins and needles in your feet or legs. Open sores, red spots, or other skin changes on your feet or legs. Swelling or pain that gets worse. Get help right away if you have: Numbness or tingling in your lower legs that does not get better right after you take the stockings off. Toes or feet that are unusually cold or turn a bluish color. A warm or red area on your leg. New swelling or soreness in your leg. Shortness of breath. Chest pain. A fast or irregular heartbeat. Light-headedness. Dizziness. Summary Compression stockings are elastic socks that squeeze the legs. They help increase blood flow (circulation) to the legs, decrease swelling in the legs, and reduce the chance of developing blood clots in the lower legs. Follow instructions from your health care provider about how and when to wear your compression stockings. Do not stop wearing your compression stockings without talking to your health care provider first. This information is not intended to replace advice given to you by your health care provider. Make sure you discuss any questions you have with your health care provider. Document Released: 03/12/2010 Document Revised: 05/17/2018 Document Reviewed: 05/17/2018 [employer] Patient Education 2020 [email or web address] Deep Vein Thrombosis Deep vein thrombosis (DVT) is a condition in which a blood clot forms in a deep vein, such as a lower leg, thigh, or arm vein. A clot is blood that has thickened into a gel or solid. This condition is dangerous. It can lead to serious and even life-threatening complications if the clot travels to the lungs and causes a blockage (pulmonary embolism). It can also damage veins in the leg. This can result in leg pain, swelling, discoloration, and sores (post-thrombotic syndrome). What are the causes? This condition may be caused by: A slowdown of blood flow. Damage to a vein. A condition that causes blood to clot more easily, such as an inherited clotting disorder. What increases the risk? The following factors may make you more likely to develop this condition: Being overweight. Being older, especially over age 60. Sitting or lying down for more than four hours. Being in the hospital. Lack of physical activity (sedentary lifestyle). , being in childbirth, or having recently given . Taking medicines that contain estrogen, such as medicines to prevent . Smoking. A history of any of the following: ? Blood clots or a blood clotting disease. ? Peripheral vascular disease. ? Inflammatory bowel disease. ? Cancer. ? Heart disease. ? Genetic conditions that affect how your blood clots, such as Factor V Leiden mutation. ? Neurological diseases that affect your legs (leg paresis). ? A recent injury, such as a car accident. ? Major or lengthy surgery. ? A central line placed inside a large vein. What are the signs or symptoms? Symptoms of this condition include: Swelling, pain, or tenderness in an arm or leg. Warmth, redness, or discoloration in an arm or leg. If the clot is in your leg, symptoms may be more noticeable or worse when you stand or walk. Some people may not develop any symptoms. How is this diagnosed? This condition is diagnosed with: A medical history and physical exam. Tests, such as: ? Blood tests. These are done to check how well your blood clots. ? Ultrasound. This is done to check for clots. ? Venogram. For this test, contrast dye is injected into a vein and X-rays are taken to check for any clots. How is this treated? Treatment for this condition depends on: The cause of your DVT. Your risk for bleeding or developing more clots. Any other medical conditions that you have. Treatment may include: Taking a blood thinner (anticoagulant). This type of medicine prevents clots from forming. It may be taken by mouth, injected under the skin, or injected through an IV (catheter). Injecting clot-dissolving medicines into the affected vein (catheter-directed thrombolysis). Having surgery. Surgery may be done to: ? Remove the clot. ? Place a filter in a large vein to catch blood clots before they reach the lungs. Some treatments may be continued for up to six months. Follow these instructions at home: If you are taking blood thinners: Take the medicine exactly as told by your health care provider. Some blood thinners need to be taken at the same time every day. Do not skip a dose. Talk with your health care provider before you take any medicines that contain aspirin or NSAIDs. These medicines increase your risk for dangerous bleeding. Ask your health care provider about foods and drugs that could change the way the medicine works (may interact). Avoid those things if your health care provider tells you to do so. Blood thinners can cause easy bruising and may make it difficult to stop bleeding. Because of this: ? Be very careful when using knives, scissors, or other sharp objects. ? Use an electric razor instead of a blade. ? Avoid activities that could cause injury or bruising, and follow instructions about how to prevent falls. Wear a medical alert bracelet or carry a card that lists what medicines you take. General instructions Take hsam-jbl-zwaibty and prescription medicines only as told by your health care provider. Return to your normal activities as told by your health care provider. Ask your health care provider what activities are safe for you. Wear compression stockings if recommended by your health care provider. Keep all follow-up visits as told by your health care provider. This is important. How is this prevented? To lower your risk of developing this condition again: For 30 or more minutes every day, do an activity that: ? Involves moving your arms and legs. ? Increases your heart rate. When traveling for longer than four hours: ? Exercise your arms and legs every hour. ? Drink plenty of water. ? Avoid drinking alcohol. Avoid sitting or lying for a long time without moving your legs. If you have surgery or you are hospitalized, ask about ways to prevent blood clots. These may include taking frequent walks or using anticoagulants. Stay at a healthy weight. If you are a woman who is older than age 35, avoid unnecessary use of medicines that contain estrogen, such as some control pills. Do not use any products that contain nicotine or tobacco, such as cigarettes and e-cigarettes. This is especially important if you take estrogen medicines. If you need help quitting, ask your health care provider. Contact a health care provider if: You miss a dose of your blood thinner. Your menstrual period is heavier than usual. You have unusual bruising. Get help right away if: You have: ? New or increased pain, swelling, or redness in an arm or leg. ? Numbness or tingling in an arm or leg. ? Shortness of breath. ? Chest pain. ? A rapid or irregular heartbeat. ? A severe headache or confusion. ? A cut that will not stop bleeding. There is blood in your vomit, stool, or urine. You have a serious fall or accident, or you hit your head. You feel light-headed or dizzy. You cough up blood. These symptoms may represent a serious problem that is an emergency. Do not wait to see if the symptoms will go away. Get medical help right away. Call your local emergency services (911 in the [place] Do not drive yourself to the hospital. Summary Deep vein thrombosis (DVT) is a condition in which a blood clot forms in a deep vein, such as a lower leg, thigh, or arm vein. Symptoms can include swelling, warmth, pain, and redness in your leg or arm. This condition may be treated with a blood thinner (anticoagulant medicine), medicine that is injected to dissolve blood clots,compression stockings, or surgery. If you are prescribed blood thinners, take them exactly as told. This information is not intended to replace advice given to you by your health care provider. Make sure you discuss any questions you have with your health care provider. Document Released: 05/15/2006 Document Revised: 04/27/2018 Document Reviewed: 10/13/2017 [employer] Patient Education 2020 [email or web address] How To Use an Incentive Spirometer An incentive spirometer is a tool that measures how well you are filling your lungs with each breath. Learning to take long, deep breaths using this tool can help you keep your lungs clear and active. This may help to reverse or lessen your chance of developing breathing (pulmonary) problems, especially infection. You may be asked to use a spirometer: After a surgery. If you have a lung problem or a history of smoking. After a long period of time when you have been unable to move or be active. If the spirometer includes an indicator to show the highest number that you have reached, your health care provider or respiratory therapist will help you set a goal. Keep a list (log) of your progress as told by your health care provider. What are the risks? Breathing too quickly may cause dizziness or cause you to pass out. Take your time so you do not get dizzy or light-headed. If you are in pain, you may need to take pain medicine before doing incentive spirometry. It is harder to take a deep breath if you are having pain. How to use your incentive spirometer 1. Sit up on the edge of your bed or on a chair. 2. Hold the incentive spirometer so that it is in an upright position. 3. Before you use the spirometer, breathe out normally. 4. Place the mouthpiece in your mouth. Make sure your lips are closed tightly around it. 5. Breathe in slowly and as deeply as you can through your mouth, causing the piston or the ball to rise toward the top of the chamber. 6. Hold your breath for 3 5 seconds, or for as long as possible. If the spirometer includes a lean coach indicator, use this to guide you in breathing. Slow down your breathing if the indicator goes above the marked areas. 7. Remove the mouthpiece from your mouth and breathe out normally. The piston or ball will return to the bottom of the chamber. 8. Rest for a few seconds, then repeat the steps 10 or more times. Take your time and take a few normal breaths between deep breaths so that you do not get dizzy or light-headed. Do this every 1 2 hours when you are awake. 9. If the spirometer includes a goal marker to show the highest number you have reached (best effort), use this as a goal to work toward during each repetition. 10. After each set of 10 deep breaths, cough a few times. This will help to make sure that your lungs are clear. If you have an incision on your chest or abdomen from surgery, place a pillow or a rolled-up towel firmly against the incision when you cough. This can help to reduce pain from coughing. General tips When you become able to get out of bed, walk around often and continue to cough to help clear your lungs. Keep using the incentive spirometer until your health care provider says it is okay to stop using it. If you have been in the hospital, you may be told to keep using the spirometer at home. Contact a health care provider if: You are having difficulty using the spirometer. You have trouble using the spirometer as often as instructed. Your pain medicine is not giving enough relief for you to use the spirometer as told. You have a fever. You develop shortness of breath. Get help right away if: You develop a cough with bloody mucus from the lungs (bloody sputum). You have fluid or blood coming from an incision site after you cough. Summary An incentive spirometer is a tool that can help you learn to take long, deep breaths to keep your lungs clear and active. You may be asked to use a spirometer after a surgery, if you have a lung problem or a history of smoking, or if you have been inactive for a long period of time. Use your incentive spirometer as instructed every 1 2 hours while you are awake. If you have an incision on your chest or abdomen, place a pillow or a rolled-up towel firmly against your incision when you cough. This will help to reduce pain. This information is not intended to replace advice given to you by your health care provider. Make sure you discuss any questions you have with your health care provider. Document Released: 09/25/2007 Document Revised: 06/07/2018 Document Reviewed: 03/28/2018 [email or web address] Patient Education 2020 [email or web address] Laparoscopic Cholecystectomy, Care After This sheet gives you information about how to care for yourself after your procedure. Your doctor may also give you more specific instructions. If you have problems or questions, contact your doctor. Follow these instructions at home: Care for cuts from surgery (incisions) Follow instructions from your doctor about how to take care of your cuts from surgery. Make sure you: ? Wash your hands with soap and water before you change your bandage (dressing). If you cannot use soap and water, use hand marshmallow maker. ? Change your bandage as told by your doctor. ? Leave stitches (sutures), skin glue, or skin tape (adhesive) strips in place. They may need to stay in place for 2 weeks or longer. If tape strips get loose and curl up, you may trim the loose edges. Do not remove tape strips completely unless your doctor says it is okay. Do not take baths, swim, or use a hot tub until your doctor says it is okay. Ask your doctor if you can take showers. You may only be allowed to take sponge baths for bathing. Check your surgical cut area every day for signs of infection. Check for: ? More redness, swelling, or pain. ? More fluid or blood. ? Warmth. ? Pus or a bad smell. Activity Do not drive or use heavy machinery while taking prescription pain medicine. Do not lift anything that is heavier than 10 lb (4.5 kg) until your doctor says it is okay. Do not play contact sports until your doctor says it is okay. Do not drive for 24 hours if you were given a medicine to help you relax (sedative). Rest as needed. Do not return to work or school until your doctor says it is okay. General instructions Take qhyl-hqu-igurosz and prescription medicines only as told by your doctor. To prevent or treat constipation while you are taking prescription pain medicine, your doctor may recommend that you: ? Drink enough fluid to keep your pee (urine) clear or pale yellow. ? Take hcgu-ltg-lksxaic or prescription medicines. ? Eat foods that are high in fiber, such as fresh fruits and vegetables, whole grains, and beans. ? Limit foods that are high in fat and processed sugars, such as fried and sweet foods. Contact a doctor if: You develop a rash. (more content not included)... [facility] 06-22-2023 Anesthesiology Consult note Patient: DEONNA DE LEÓN Age: 48 years Sex: Male : 1975 Associated Diagnoses: None Author: MARICHUY TEJEDA APRN-GLOVE FINISHER Preoperative Information Time of last food or liquid consumption: 06/22/2023 00:00:00 Anesthesia history Patient's history: negative. Family's history: negative. Review of Systems Ear/Nose/Mouth/Throat: Negative. Respiratory: smoker. Cardiovascular: Negative. Gastrointestinal: Reflux, obese. Genitourinary: Negative. Endocrine: Negative. Musculoskeletal: Negative. Integumentary: Negative. Neurologic: Negative. Health Status Allergies: Allergic Reactions (Selected) NKA, Allergies (1) ActiveReaction NKANone Documented Current medications: (Selected) Inpatient Medications Ordered LR 1,000 mL: 20 mL/hr, Intravenous LR 1000 mL: 20 mL/hr, Intravenous Zofran ( PACU ): 4 mg, 2 mL, IV Push, AsDirected, PRN: Nausea/Vomiting morphine ( PACU ): 2 mg, 1 mL, IV Push, q5min, PRN: Pain, scale 4-6 Prescriptions Prescribed pantoprazole 40 mg oral enteric coated tablet: 40 mg, 1 tab(s), Oral, qDay, 30 tab(s), 5 Refill(s), Medications (4) Active Scheduled: (0) Continuous: (2) Lactated Ringers 1,000 mL 1,000 mL, Intravenous, 20 mL/hr Lactated Ringers Infusion 1000 mL 1,000 mL, Intravenous, 20 mL/hr PRN: (2) morphine 2 mg/mL 1 mL syringe 2 mg 1 mL, IV Push, q5min ondansetron 2 mg/ 1 mL 2 mL INJ 4 mg 2 mL, IV Push, AsDirected Problem list: Medical Abdominal pain / SNOMED CT 49726943 / Confirmed Biliary dyskinesia / SNOMED CT 251436843 / Confirmed External hemorrhoid / SNOMED CT 02906464 / Confirmed History of kidney stones / SNOMED CT 7951285649 / Confirmed Preop examination / SNOMED CT 911194915 / Confirmed Prostatitis / SNOMED CT 77643026 / Confirmed Abdominal distention / SNOMED CT 635586517 / Confirmed, Active Problems (9) Abdominal distention Abdominal pain Biliary dyskinesia External hemorrhoid GERD (gastroesophageal reflux disease) History of kidney stones Preop examination Prostatitis Tobacco use Histories Past Medical History: No active or resolved past medical history items have been selected or recorded. Family History: Hypertension Father Migraine Sister Kidney infection Sister Brother Procedure history: Excision of lipoma (200878697). ESWL (extracorporeal shockwave lithotripsy) of ureteric calculus (9104867892). Social History Social & Psychosocial Habits Alcohol 06/13/2023 Use: Current Frequency: 1-2 times per month Substance Abuse 06/13/2023 Use: Never Tobacco 06/15/2023 Tobacco Use: 10 or more cigarettes (1/ Type: Cigarettes Tobacco use per day: 10 Number of years: 20 Ready to change: No Smoking Cessation Information Smoking cessation informa Nutrition/Health 06/13/2023 Caffeine intake amount: 1-2 servings pop daily . Physical Examination Vital Signs 06/22/2023 6:21 EST Temperature Temporal Artery 36.5 DegC Apical Heart Rate 71 bpm Respiratory Rate 18 br/min Systolic Blood Pressure Non-Invasive 108 mmHg Diastolic Blood Pressure Non-Invasive 82 mmHg Vital Signs(last 24 hrs) Last Charted SDV343 mmHg (JUN 22 06:21) DBP82 mmHg (JUN 22:21) Measurements from flowsheet : Measurements 06/22/2023 6:21 EST Height 172.7 cm Height in inches 68 inch(es) Admission Weight 95.4 kg Weight Lbs 209.9 lb [place] Body Weight 68.38 kg Admission Body Mass Index 31.99 m2 Pain assessment: Pain Assessment 06/22/2023 6:21 EST Primary Pain Intensity 0 Pain Scale Type 0-10 Pain scale . General: Alert and oriented. Airway: Normal temporomandibular joint mobility. Mallampati classification: III (soft palate, base of uvula visible). Head: Atraumatic. Dentition Evaluation: Own teeth. Neck: Supple. Respiratory: Lungs are clear to auscultation. Cardiovascular: Normal rate. Heart Sounds: Normal. Gastrointestinal: Soft. Musculoskeletal Normal range of motion. Integumentary: Intact. Neurologic: Alert, Oriented. Review / Management Results review: No qualifying data available , Lab results 06/22/2023 6:45 EST SN - Preop - CTm Pt Ready for OR/Proced 06/22/2023 6:45 06/22/2023 6:45 EST SN - Preop - CTm Pt in SDS Room 06/22/2023 6:19 06/22/2023 6:40 EST gabapentin 300 mg mg ibuprofen 800 mg mg Lactated Ringers Injection Begin Bag 1,000 mL mL 06/22/2023 6:37 EST indocyanine green 5 mg mg 06/22/2023 6:29 EST Continuous IV Infusions LR Hand Right 06/22/2023 20 gauge Peripheral IV Activity: Insert new site Peripheral IV Dressing Condition: Clean, Dry, Intact Peripheral IV Dressing Activity: Applied, Transparent dressing Peripheral IV Line Status/Patency: Flushes easily Peripheral IV Site Condition: No complications Peripheral IV Equipment: Extension set, PRN Adaptor 06/22/2023 6:21 EST Height 172.7 cm Height in inches 68 inch(es) Admission Weight 95.4 kg Weight Lbs 209.9 lb [place] Body Weight 68.38 kg Admission Body Mass Index 31.99 m2 Temperature Temporal Artery 36.5 DegC Apical Heart Rate 71 bpm Respiratory Rate 18 br/min Systolic Blood Pressure Non-Invasive 108 mmHg Diastolic Blood Pressure Non-Invasive 82 mmHg Primary Pain Intensity 0 Pain Scale Type 0-10 Pain scale Heart Rhythm Regular Respirations Unlabored Respiratory Pattern Regular All Lobes Breath Sounds Clear Oxygen Therapy Room air Oxygen Saturation 96 % Abdomen Description Non-distended Bowel Sounds All Quadrants Present Urinary Elimination Voiding, no difficulties Skin Temperature Warm Skin Description [place], Dry Skin Integrity Intact IV Present Present Neurological Symptoms Patient denies Extremity Movement Equal Characteristics of Speech Clear Level of Consciousness Alert Strength All Extremities Strong Tone All Extremities Normal Sensation All Extremities Intact Affect/Behavior Appropriate Orientation Oriented x 4 Allergies No Anesthesia Extension Set Applied Yes Consent Form Signed Yes Patient Dressed In Hospital gown CHG Preoperative Wash/Wipe Night before procedure, Day of procedure, Site specific wipe Preop Nasal Swab Povidone-Iodine CHG Skin Prep Completed for Eligible Surgery History & Physical Update On Chart Yes History & Physical On Chart Yes Obstructive Sleep Apnea Assess Completed Yes Belongings At Bedside Cell phone, Glasses, Pants, Shirt, Shoes, Socks, Undergarments Activity Status ADL Awake Sequential Compression Device bilateral knee high applied/on NPO Status Maintained Standard Safety ID band on, Call device within reach, Bed in low position, Wheels locked, Upper/Half-Length side-rails up, Safety level maintained Allergy Band on and Verified No Patient ID Band on and Verified Yes Implants Verified Yes Pacemaker/AICD Verified Yes Site Verified by Patient/Family Yes Anesthesia Consent Signed Yes Blood Consent Signed Yes Last Fluid Intake 06/21/2023 22:00 Last Food Intake 06/21/2023 18:30 Last Void 06/22/2023 6:32 06/22/2023 6:20 EST Designated Person #1 We May Share PHI Brian De León [phone] Designated Person #1 Relationship Spouse Privacy Restrictions Requested None Status N/A Sensory Deficits None Sleep Apnea Snore No Sleep Apnea Tired No Sleep Apnea Obstruction No Sleep Apnea Pressure No Sleep Apnea BMI Yes Sleep Apnea Age No Sleep Apnea Neck No Sleep Apnea Gender Yes Sleep Apnea Score 2 Diagnosed With Sleep Apnea No Advanced Directives No - refuses information Infectious Disease Symptoms Patient states no symptoms Infectious Disease Recent Exposure No Alcohol and Drug Use No Employee of Institutional Living No Health Care Employee No History of Exposure to TB No History of Positive Chest X-Ray for TB No History of Positive TB Skin Test No Homeless No Known Immunosuppression No Recent Immigrant No Resident of Institutional Living No Bloody Sputum No Fatigue No Fever No Loss of Appetite No Night Sweats No Persistent Cough > 3 Weeks No Weight Loss No Pre-Op Patient Education NPO after midnight, No jewelry, Responsible Republican, Aware of surgery location, 1 bottle CHG wash with instructions given, Instructed to take ordered medications SN - Preprocedure Comments Spoke with patient, Verbalizes/Nonverbally indicates understanding, Other: PANTOPRAZOLE Barriers to Learning None evident Teaching Method Explanation, Printed materials Preferred Spoken Language Occitan Preferred Written Language Occitan Teaching Evaluation Verbalizes/Nonverbally indicates understanding Safety Brochure Information Reviewed Unable to complete [facility] Video Viewed No Information Given by Patient Patient's Current Physicians [facility] Discharge To, Anticipated Home with family care Prev Test Positive/Diagnosis w/COVID-19 No Current Quarantine/Isolated any Illness No Any Contact with Sick Animals/Birds No Traveled Anywhere in Last 30 Days No Lost Weight Unintentionally Recently No Eat Poorly Due to Decreased Appetite No Total MST Score 0 N/A Personal Devices, Patient Valuables Glasses Anesthesia/Transfusions Prior anesthesia Admission Note-Nursing Same Day Patient History . Assessment and Plan [place] [employer] Anesthesiologists (ASA) physical status classification: Class II. Anesthetic Preoperative Plan Premedication: intravenous. Anesthetic technique: General. Induction: intravenously. Maintenance airway: Oral endotracheal tube. Postoperative pain management: Per surgeon. Risks discussed: nausea, vomiting, sore throat. Informed consent: signed by patient. Digitally Signed by MARICHUY TEJEDA on 06/22/2023 07:37 AM [facility] 06-15-2023 Evaluation + Plan note Future Scheduled TestsHepatic Function Panel 06/15/23CT Abdomen Adrenal 04/24/23 [facility] 03-24-2023 Note ORIGINAL EXAMINATION: CT OF THE ABDOMEN AND PELVIS WITH CONTRAST 03/24/2023 3:36 pm TECHNIQUE: CT of the abdomen and pelvis was performed with the administration of intravenous and oral contrast. Multiplanar reformatted images are provided for review. Automated exposure control, iterative reconstruction, and/or weight based adjustment of the mA/kV was utilized to reduce the radiation dose to as low as reasonably achievable. COMPARISON: None. HISTORY: ORDERING SYSTEM PROVIDED HISTORY: Reason for Exam: Worsening abdominal pain after eating FINDINGS: Lower Chest: Visualized lung bases are clear. Organs: Liver, spleen, bilateral kidneys unremarkable. Bilateral ureters nondilated. Urinary bladder partially distended however unremarkable. Gallbladder shows 2 hyperdense calculi within the lumen the larger measuring 14 mm at the neck region. No obvious gallbladder wall thickening or surrounding inflammation. Bilateral adrenal glands show multiple nodules within largest measuring 19 mm on the left side and 14 mm on right. No evidence of lymphadenopathy. GI/Bowel: No acute gastrointestinal abnormality. No aneurysmal dilatation of aorta. Mild atherosclerotic changes in the aorta iliac vessels. IVC unremarkable. Bones/Soft Tissues: Mild degenerative changes in lumbar spine. IMPRESSION: 1. Cholelithiasis. 2. Bilateral adrenal glands showing multiple nodules within, indeterminate. Consider adrenal phasic CT. I have personally reviewed the images of this examination and agree with the resident's findings and interpretation. Interpreted by: Enio Berman MD Preliminary Report By: Eagle Goins Electronically signed By Enio Berman MD Dictated Date: 03/24/2023 3:47:37 PM Prelim Date: 03/24/2023 4:44:10 PM Sign Date: 03/24/2023 4:44:10 PM Ordering Provider: LILIANA CONNER [facility] Evaluation + Plan note No data available for this section [facility] Evaluation + Plan note Future Appointments Appointment Date:06/15/2023 01:00:00 PM Scheduled Provider:KENNETH MACDONALD MD Location:[facility] Appointment Type:GS OV Pre Op Future Scheduled TestsCT Abdomen Adrenal 04/24/23 [facility] Evaluation + Plan note Future Appointments Appointment Date:10/03/2024 07:30:00 AM Scheduled Provider:LILIANA CONNER MD Location:[facility] Appointment Type:PC OV Appointment Date:10/17/2024 01:20:00 PM Scheduled Provider:KENNETH MACDONALD MD Location:[facility] Appointment Type:GS OV Pre Op Appointment Date:11/07/2024 01:00:00 PM Scheduled Provider:KENNETH MACDONALD MD Location:[facility] Appointment Type:GS OV Post Op [facility] Evaluation + Plan note Future Appointments Appointment Date:10/17/2024 01:20:00 PM Scheduled Provider:KENNETH MACDONALD MD Location:[facility] Appointment Type:GS OV Pre Op Appointment Date:11/07/2024 01:00:00 PM Scheduled Provider:KENNETH MACDONALD MD Location:[facility] Appointment Type:GS OV Post Op [facility] Evaluation + Plan note Future Appointments Appointment Date:11/07/2024 02:00:00 PM Scheduled Provider:KENNETH MACDONALD MD Location:[facility] Appointment Type:GS OV Post Op [facility] Evaluation note No assessment information [facility] Work Phone: Hospital Discharge instructions No data available for this section [facility] Note Jessica Vanegas RN: PERFORM Event Display: [facility] Patient Summary Authored Date: [id number] Discharge Instructions Thank you for allowing [facility] to assist you with your healthcare needs. The following is important discharge information regarding your hospital visit. Your Care Team LILIANA CONNER MD Your Diagnosis Acute post-operative pain What to do next Follow Up Appointments Follow Up with KENNETH MACDONALD MD, Surgery When Why: CALL DR MACDONALD'S OFFICE TO [facility]A 2 WEEK FOLLOW UP APPOINTMENT AND WITH ANY CONCERNS. GO TO THE EMERGENCY ROOM WITH ANY URGENT CONCERNS. Where: [address] [facility] [place] [address]- [phone] The Following Activity and Diet Have Been Ordered for You Discharge Activity - Ordered -- Sexual [place] Restricted No bending, twisting, crawling or squatt, No shower or tub bath for 2 days; no driving for 5 days, no lifting >15 lbs, 06/22/23 9:42:00 EST Discharge Diet - Ordered -- Follow the post-operative/post-procedure diet instructions provided by your physician's office., 06/22/23 9:42:00 EST The Following Equipment Has Been Ordered for You Discharge Home Equipment Discharge Wound Care - Ordered -- Dressing Type: Dry sterile drsg, Remove dressing in two (2) days. Leave steristrips on until they fall off, 06/22/23 9:42:00 EST The Following Treatments Have Been Ordered for You Discharge Labs No qualifying data available. Discharge Radiology No qualifying data available. Other Therapies No qualifying data available. Post Acute Orders No qualifying data available. Someone Will Contact You Regarding These Home Health Referrals No home referrals have been ordered for you. No one will call you. Allergies NKA Medications Please ask your primary doctor or pharmacist before taking any other medication not listed, including over the counter drugs, herbal medications, vitamins and or supplements as they may interact with your home medications. What How Much When Why Instructions Last Dose New acetaminophen-hydrocodone (Fayette 325- 5 mg oral tablet) 1 tab(s) by mouth Every 4 hours as needed for Pain, scale 1-6 Acute post-operative pain Duration: 5 Days Pickup at [facility]/pharmacy #[id number] Unchanged pantoprazole (pantoprazole 40 mg oral enteric coated tablet) 1 tab(s) by mouth Once a day Abdominal pain Abdominal distention Pharmacy Information [facility]/pharmacy #[id number]: [address], [place] [phone] Please take this list to your next doctor s visit. Bring all medications you take, including over the counter medications, herbals and other supplements with you to your doctor s visit. Patients and families are reminded to discard old lists and to update any records with all medication providers or retail pharmacies. Medication Leaflets acetaminophen and hydrocodone (a SEET a MIN oh fen and holly droregis KOE done) Lortab Elixir, Verdrocet What is the most important information I should know about acetaminophen and hydrocodone? MISUSE OF OPIOID MEDICINE CAN CAUSE ADDICTION, OVERDOSE, OR . Keep the medication in a place where others cannot get to it. Taking opioid medicine during may cause life-threatening withdrawal symptoms in the . Fatal side effects can occur if you use opioid medicine with alcohol, or with other drugs that cause drowsiness or slow your breathing. Stop taking this medicine and call your doctor right away if you have skin redness or a rash that spreads and causes blistering and peeling. What is acetaminophen and hydrocodone? Acetaminophen and hydrocodone is a combination medicine used to relieve moderate to severe pain. Acetaminophen and hydrocodone contains an opioid medicine, and may be habit-forming. Acetaminophen and hydrocodone may also be used for purposes not listed in this medication guide. What should I discuss with my healthcare provider before taking acetaminophen and hydrocodone? You should not use this medicine if you are allergic to acetaminophen or hydrocodone, or if you have: severe asthma or breathing problems; or a blockage in your stomach or intestines. Tell your doctor if you have ever had: breathing problems, sleep apnea (breathing stops during sleep); liver disease; a drug or alcohol addiction; kidney disease; a head injury or seizures; urination problems; or problems with your thyroid, pancreas, or gallbladder. If you use opioid medicine while you are , your baby could become dependent on the drug. This can cause life-threatening withdrawal symptoms in the baby after it is born. Babies born dependent on opioids may need medical treatment for several weeks. Ask a doctor before using opioid medicine if you are . Tell your doctor if you notice severe drowsiness or slow breathing in the nursing baby. How should I take acetaminophen and hydrocodone? Follow all directions on your prescription label. Never take this medicine in larger amounts, or for longer than prescribed. An overdose can damage your liver or cause . Tell your doctor if you feel an increased urge to use more of this medicine. Never share this medicine with another person, especially someone with a history of drug abuse or addiction. MISUSE CAN CAUSE ADDICTION, OVERDOSE, OR . Keep the medicine in a place where others cannot get to it. Selling or giving away this medicine is against the law. Measure liquid medicine carefully. Use the dosing syringe provided, or use a medicine dose-measuring device (not a kitchen spoon). If you need surgery or medical tests, tell the doctor ahead of time that you are using this medicine. You should not stop using this medicine suddenly. Follow your doctor's instructions about tapering your dose. Store at room temperature away from moisture and heat. Keep track of your medicine. You should be aware if anyone is using it improperly or without a prescription. Do not keep leftover opioid medication. Just one dose can cause in someone using this medicine accidentally or improperly. Ask your pharmacist where to locate a drug take-back disposal program. If there is no take-back program, flush the unused medicine down the toilet. What happens if I miss a dose? Since this medicine is used for pain, you are not likely to miss a dose. Skip any missed dose if it is almost time for your next dose. Do not use two doses at one time. What happens if I overdose? Seek emergency medical attention or call the Poison Help line at . An overdose of this medicine can be fatal, especially in a child or other person using the medicine without a prescription. Overdose symptoms may include nausea, vomiting, sweating, severe drowsiness, pinpoint pupils, slow breathing, or no breathing. Your doctor may recommend you get naloxone (a medicine to reverse an opioid overdose) and keep it with you at all times. A person caring for you can give the naloxone if you stop breathing or don't wake up. Your caregiver must still get emergency medical help and may need to perform CPR (cardiopulmonary resuscitation) on you while waiting for help to arrive. Anyone can buy naloxone from a pharmacy or local health department. Make sure any person caring for you knows where you keep naloxone and how to use it. What should I avoid while taking acetaminophen and hydrocodone? Avoid driving or operating machinery until you know how this medicine will affect you. Dizziness or drowsiness can cause falls, accidents, or severe injuries. Do not drink alcohol. Dangerous side effects or could occur. Ask a doctor or pharmacist before using any other medicine that may contain acetaminophen (sometimes abbreviated as APAP). Taking certain medications together can lead to a fatal overdose. What are the possible side effects of acetaminophen and hydrocodone? Get emergency medical help if you have signs of an allergic reaction: hives; difficulty breathing; swelling of your face, lips, tongue, or throat. Opioid medicine can slow or stop your breathing, and may occur. A person caring for you should give naloxone and/or seek emergency medical attention if you have slow breathing with long pauses, blue colored lips, or if you are hard to wake up. In rare cases, acetaminophen may cause a severe skin reaction that can be fatal. This could occur even if you have taken acetaminophen in the past and had no reaction. Stop taking this medicine and call your doctor right away if you have skin redness or a rash that spreads and causes blistering and peeling. Call your doctor at once if you have: noisy breathing, sighing, shallow breathing, breathing that stops; a light-headed feeling, like you might pass out; liver problems--nausea, upper stomach pain, tiredness, loss of appetite, dark urine, corky-colored stools, jaundice (yellowing of the skin or eyes); low cortisol levels-- nausea, vomiting, loss of appetite, dizziness, worsening tiredness or weakness; o high levels of serotonin in the body--agitation, hallucinations, fever, sweating, shivering, fast heart rate, muscle stiffness, twitching, loss of coordination, nausea, vomiting, diarrhea. Serious breathing problems may be more likely in older adults and in those who are debilitated or have wasting syndrome or chronic breathing disorders. Common side effects include: dizziness, drowsiness, feeling tired; nausea, vomiting, stomach pain; constipation; or headache. This is not a complete list of side effects and others may occur. Call your doctor for medical advice about side effects. You may report side effects to FDA at 2-166-ZGH-4807. What other drugs will affect acetaminophen and hydrocodone? You may have breathing problems or withdrawal symptoms if you start or stop taking certain other medicines. Tell your doctor if you also use an antibiotic, antifungal medication, heart or blood pressure medication, seizure medication, or medicine to treat HIV or hepatitis C. Opioid medication can interact with many other drugs and cause dangerous side effects or . Be sure your doctor knows if you also use: cold or allergy medicines, bronchodilator asthma/COPD medication, or a diuretic ('water pill'); medicines for motion sickness, irritable bowel syndrome, or overactive bladder; other opioids--opioid pain medicine or prescription cough medicine; a sedative like Valium--diazepam, alprazolam, lorazepam, Xanax, Klonopin, Versed, and others; drugs that make you sleepy or slow your breathing--a sleeping pill, muscle relaxer, medicine to treat mood disorders or mental illness; drugs that affect serotonin levels in your body--a stimulant, or medicine for depression, Parkinson's disease, migraine headaches, serious infections, or nausea and vomiting. This list is not complete. Other drugs may affect acetaminophen and hydrocodone, including prescription and xhan-erq-sndafjc medicines, vitamins, and herbal products. Not all possible interactions are listed here. Where can I get more information? Your doctor or pharmacist can provide more information about acetaminophen and hydrocodone. Remember, keep this and all other medicines out of the reach of children, never share your medicines with others, and use this medication only for the indication prescribed. Every effort has been made to ensure that the information provided by [employer] is accurate, up-to-date, and complete, but no guarantee is made to that effect. Drug information contained herein may be time sensitive. [employer] information has been compiled for use by healthcare practitioners and consumers in the [place] and therefore [employer] does not warrant that uses outside of the [place] are appropriate, unless specifically indicated otherwise. [employer] drug information does not endorse drugs, diagnose patients or recommend therapy. [employer] drug information is an informational resource designed to assist licensed healthcare practitioners in caring for their patients and/or to serve consumers viewing this service as a supplement to, and not a substitute for, the expertise, skill, knowledge and judgment of healthcare practitioners. The absence of a warning for a given drug or drug combination in no way should be construed to indicate that the drug or drug combination is safe, effective or appropriate for any given patient. [employer] does not assume any responsibility for any aspect of healthcare administered with the aid of information [employer] provides. The information contained herein is not intended to cover all possible uses, directions, precautions, warnings, drug interactions, allergic reactions, or adverse effects. If you have questions about the drugs you are taking, check with your doctor, nurse or pharmacist. Copyright 6726-2678 [employer]. Version: 19.. Revision Date: 01/16/2023. bupivacaine liposome (tawanae JASPER a priyanka woode some) Exparel What is the most important information I should know about bupivacaine liposome? You may still feel numb or be unable to move the numbed area for up to 5 days after you are treated with bupivacaine liposome. What is bupivacaine liposome? Bupivacaine is an anesthetic (numbing medicine) that blocks nerve impulses in your body. Bupivacaine liposome is used as a local (in only one area) anesthetic to numb an area of your body for a minor surgery such as bunion removal or hemorrhoid surgery. Bupivacine liposome is also used as a nerve block after surgery on your shoulder or upper arm, to provide pain relief to the area. Bupivacaine may also be used for purposes not listed in this medication guide. What should I discuss with my healthcare provider before receiving bupivacaine liposome? You should not be treated with bupivacaine if you are allergic to it. Tell your doctor if you have ever had: an allergic reaction to any type of numbing medicine; liver disease; kidney disease; heart disease; a heart rhythm disorder; or seizures. It is not known whether this medicine will harm an unborn baby. Tell your doctor if you are . It may not be safe to breast-feed a baby while you are using this medicine. Ask your doctor about any risks. How is bupivacaine liposome given? Bupivacaine is given as an injection placed into an area near your surgical incision. You will receive this injection in a hospital or surgical setting. Bupivacaine liposome can have long-lasting or delayed effects. For at least 4 days (96 hours) after your surgery, tell any doctor or dentist who treats you that you recently received a bupivacaine liposome injection. Call your doctor if you have joint pain or stiffness, or weakness in any part of your body that occurs after your surgery, even months later. What happens if I miss a dose? Since bupivacaine liposome is used as a single dose, it does not have a daily dosing schedule. What happens if I overdose? Since this medication is given by a healthcare professional in a medical setting, an overdose is unlikely to occur. What should I avoid after receiving bupivacaine liposome? For at least 4 days (96 hours) after surgery, avoid using any pain or numbing medicines that contain lidocaine. This includes skin patches, sprays, creams, ointments, or gels applied to the skin. Follow your doctor's instructions. What are the possible side effects of bupivacaine liposome? Get emergency medical help if you have signs of an allergic reaction: hives, red rash, itching; sneezing, difficulty breathing; severe dizziness, vomiting; swelling of your face, lips, tongue, or throat. You will be watched closely after receiving bupivacaine liposome, to make sure you do not have a reaction to the medicine. Tell your caregivers at once if you have any of these signs of a serious side effect: ringing in your ears; drowsiness, feeling restless or anxious; feeling like you might pass out; speech or vision problems, a metallic taste in your mouth; numbness or tingling around your mouth; fast or slow heart rate, feeling short of breath, feeling unusually hot or cold; tremors, twitching, mood changes; ongoing numbness, weakness, or loss of movement where the medicine was injected; or joint pain or stiffness, or weakness in any part of your body for months after your surgery. You may still feel numb or be unable to move the numbed area for up to 5 days after you are treated with bupivacaine liposome. Common side effects include: nausea, vomiting; constipation; or fever. This is not a complete list of side effects and others may occur. Call your doctor for medical advice about side effects. You may report side effects to FDA at 0-498-BGH-0171. What other drugs will affect bupivacaine liposome? Other drugs may affect bupivacaine liposome, including prescription and amow-tro-ibgqdrb medicines, vitamins, and herbal products. Tell your doctor about all your current medicines and any medicine you start or stop using. Where can I get more information? Your doctor or pharmacist can provide more information about bupivacaine liposome. Remember, keep this and all other medicines out of the reach of children, never share your medicines with others, and use this medication only for the indication prescribed. Every effort has been made to ensure that the information provided by [employer] is accurate, up-to-date, and complete, but no guarantee is made to that effect. Drug information contained herein may be time sensitive. [employer] information has been compiled for use by healthcare practitioners and consumers in the [place] and therefore [employer] does not warrant that uses outside of the [place] are appropriate, unless specifically indicated otherwise. [employer] drug information does not endorse drugs, diagnose patients or recommend therapy. [employer] drug information is an informational resource designed to assist licensed healthcare practitioners in caring for their patients and/or to serve consumers viewing this service as a supplement to, and not a substitute for, the expertise, skill, knowledge and judgment of healthcare practitioners. The absence of a warning for a given drug or drug combination in no way should be construed to indicate that the drug or drug combination is safe, effective or appropriate for any given patient. [facility] does not assume any responsibility for any aspect of healthcare administered with the aid of information [facility] provides. The information contained herein is not intended to cover all possible uses, directions, precautions, warnings, drug interactions, allergic reactions, or adverse effects. If you have questions about the drugs you are taking, check with your doctor, nurse or pharmacist. Copyright [id number] [facility]. Version: 4.01. Revision Date: 09/18/2017. Education Materials General Anesthesia, Adult, Care After This sheet gives you information about how to care for yourself after your procedure. Your health care provider may also give you more specific instructions. If you have problems or questions, contact your health care provider. What can I expect after the procedure? After the procedure, the following side effects are common: Pain or discomfort at the IV site. Nausea. Vomiting. Sore throat. Trouble concentrating. Feeling cold or chills. Weak or tired. Sleepiness and fatigue. Soreness and body aches. These side effects can affect parts of the body that were not involved in surgery. Follow these instructions at home: For at least 24 hours after the procedure: Have a responsible adult stay with you. It is important to have someone help care for you until you are awake and alert. Rest as needed. Do not: ? Participate in activities in which you could fall or become injured. ? Drive. ? Use heavy machinery. ? Drink alcohol. ? Take sleeping pills or medicines that cause drowsiness. ? Make important decisions or sign legal documents. ? Take care of children on your own. Eating and drinking Follow any instructions from your health care provider about eating or drinking restrictions. When you feel hungry, start by eating small amounts of foods that are soft and easy to digest (bland), such as toast. Gradually return to your regular diet. Drink enough fluid to keep your urine pale yellow. If you vomit, rehydrate by drinking water, juice, or clear broth. General instructions If you have sleep apnea, surgery and certain medicines can increase your risk for breathing problems. Follow instructions from your health care provider about wearing your sleep device: ? Anytime you are sleeping, including during daytime naps. ? While taking prescription pain medicines, sleeping medicines, or medicines that make you drowsy. Return to your normal activities as told by your health care provider. Ask your health care provider what activities are safe for you. Take pxvk-asb-dbqiads and prescription medicines only as told by your health care provider. If you smoke, do not smoke without supervision. Keep all follow-up visits as told by your health care provider. This is important. Contact a health care provider if: You have nausea or vomiting that does not get better with medicine. You cannot eat or drink without vomiting. You have pain that does not get better with medicine. You are unable to pass urine. You develop a skin rash. You have a fever. You have redness around your IV site that gets worse. Get help right away if: You have difficulty breathing. You have chest pain. You have blood in your urine or stool, or you vomit blood. Summary After the procedure, it is common to have a sore throat or nausea. It is also common to feel tired. Have a responsible adult stay with you for the first 24 hours after general anesthesia. It is important to have someone help care for you until you are awake and alert. When you feel hungry, start by eating small amounts of foods that are soft and easy to digest (bland), such as toast. Gradually return to your regular diet. Drink enough fluid to keep your urine pale yellow. Return to your normal activities as told by your health care provider. Ask your health care provider what activities are safe for you. This information is not intended to replace advice given to you by your health care provider. Make sure you discuss any questions you have with your health care provider. Document Released: 08/21/2001 Document Revised: 05/18/2018 Document Reviewed: 12/29/2017 [email or web address] Patient Education 2020 [email or web address] How to Use Compression Stockings Compression stockings are elastic socks that squeeze the legs. They help increase blood flow (circulation) to the legs, decrease swelling in the legs, and reduce the chance of developing blood clots in the lower legs. Compression stockings are often used by people who: Are recovering from surgery. Have poor circulation in their legs. Tend to get blood clots in their legs. Have bulging (varicose) veins. Sit or stay in bed for long periods of time. Follow instructions from your health care provider about how and when to wear your compression stockings. How to wear compression stockings Before you put on your compression stockings: Make sure that they are the correct size and degree of compression. If you do not know your size or required grade of compression, ask your health care provider and follow the crane mechanic's instructions that come with the stockings. Make sure that they are clean, dry, and in good condition. Check them for rips and tears. Do not put them on if they are ripped or torn. Put your stockings on first thing in the morning, before you get out of bed. Keep them on for as long as your health care provider advises. When you are wearing your stockings: Keep them as smooth as possible. Do not allow them to bunch up. It is especially important to prevent the stockings from bunching up around your toes or behind your knees. Do not roll the stockings downward and leave them rolled down. This can decrease blood flow to your leg. Change them right away if they become wet or dirty. When you take off your stockings, inspect your legs and feet. Check for: Open sores. Red spots. Swelling. General tips Do not stop wearing compression stockings without talking to your health care provider first. Wash your stockings every day with mild detergent in cold or warm water. Do not use bleach. Air-dry your stockings or dry them in a clothes dryer on low heat. It may be helpful to have two pairs so that you have a pair to wear while the other is being washed. Replace your stockings every 3 6 months. If skin moisturizing is part of your treatment plan, apply lotion or cream at night so that your skin will be dry when you put on the stockings in the morning. It is harder to put the stockings on when you have lotion on your legs or feet. Wear nonskid shoes or slip-resistant socks when walking while wearing compression stockings. Contact a health care provider and remove your stockings if you have: A feeling of pins and needles in your feet or legs. Open sores, red spots, or other skin changes on your feet or legs. Swelling or pain that gets worse. Get help right away if you have: Numbness or tingling in your lower legs that does not get better right after you take the stockings off. Toes or feet that are unusually cold or turn a bluish color. A warm or red area on your leg. New swelling or soreness in your leg. Shortness of breath. Chest pain. A fast or irregular heartbeat. Light-headedness. Dizziness. Summary Compression stockings are elastic socks that squeeze the legs. They help increase blood flow (circulation) to the legs, decrease swelling in the legs, and reduce the chance of developing blood clots in the lower legs. Follow instructions from your health care provider about how and when to wear your compression stockings. Do not stop wearing your compression stockings without talking to your health care provider first. This information is not intended to replace advice given to you by your health care provider. Make sure you discuss any questions you have with your health care provider. Document Released: 03/12/2010 Document Revised: 05/17/2018 Document Reviewed: 05/17/2018 [employer] Patient Education 2020 [employer] Deep Vein Thrombosis Deep vein thrombosis (DVT) is a condition in which a blood clot forms in a deep vein, such as a lower leg, thigh, or arm vein. A clot is blood that has thickened into a gel or solid. This condition is dangerous. It can lead to serious and even life-threatening complications if the clot travels to the lungs and causes a blockage (pulmonary embolism). It can also damage veins in the leg. This can result in leg pain, swelling, discoloration, and sores (post-thrombotic syndrome). What are the causes? This condition may be caused by: A slowdown of blood flow. Damage to a vein. A condition that causes blood to clot more easily, such as an inherited clotting disorder. What increases the risk? The following factors may make you more likely to develop this condition: Being overweight. Being older, especially over age 60. Sitting or lying down for more than four hours. Being in the hospital. Lack of physical activity (sedentary lifestyle). , being in childbirth, or having recently given . Taking medicines that contain estrogen, such as medicines to prevent . Smoking. A history of any of the following: ? Blood clots or a blood clotting disease. ? Peripheral vascular disease. ? Inflammatory bowel disease. ? Cancer. ? Heart disease. ? Genetic conditions that affect how your blood clots, such as Factor V Leiden mutation. ? Neurological diseases that affect your legs (leg paresis). ? A recent injury, such as a car accident. ? Major or lengthy surgery. ? A central line placed inside a large vein. What are the signs or symptoms? Symptoms of this condition include: Swelling, pain, or tenderness in an arm or leg. Warmth, redness, or discoloration in an arm or leg. If the clot is in your leg, symptoms may be more noticeable or worse when you stand or walk. Some people may not develop any symptoms. How is this diagnosed? This condition is diagnosed with: A medical history and physical exam. Tests, such as: ? Blood tests. These are done to check how well your blood clots. ? Ultrasound. This is done to check for clots. ? Venogram. For this test, contrast dye is injected into a vein and X-rays are taken to check for any clots. How is this treated? Treatment for this condition depends on: The cause of your DVT. Your risk for bleeding or developing more clots. Any other medical conditions that you have. Treatment may include: Taking a blood thinner (anticoagulant). This type of medicine prevents clots from forming. It may be taken by mouth, injected under the skin, or injected through an IV (catheter). Injecting clot-dissolving medicines into the affected vein (catheter-directed thrombolysis). Having surgery. Surgery may be done to: ? Remove the clot. ? Place a filter in a large vein to catch blood clots before they reach the lungs. Some treatments may be continued for up to six months. Follow these instructions at home: If you are taking blood thinners: Take the medicine exactly as told by your health care provider. Some blood thinners need to be taken at the same time every day. Do not skip a dose. Talk with your health care provider before you take any medicines that contain aspirin or NSAIDs. These medicines increase your risk for dangerous bleeding. Ask your health care provider about foods and drugs that could change the way the medicine works (may interact). Avoid those things if your health care provider tells you to do so. Blood thinners can cause easy bruising and may make it difficult to stop bleeding. Because of this: ? Be very careful when using knives, scissors, or other sharp objects. ? Use an electric razor instead of a blade. ? Avoid activities that could cause injury or bruising, and follow instructions about how to prevent falls. Wear a medical alert bracelet or carry a card that lists what medicines you take. General instructions Take ixtf-zio-lrfiqos and prescription medicines only as told by your health care provider. Return to your normal activities as told by your health care provider. Ask your health care provider what activities are safe for you. Wear compression stockings if recommended by your health care provider. Keep all follow-up visits as told by your health care provider. This is important. How is this prevented? To lower your risk of developing this condition again: For 30 or more minutes every day, do an activity that: ? Involves moving your arms and legs. ? Increases your heart rate. When traveling for longer than four hours: ? Exercise your arms and legs every hour. ? Drink plenty of water. ? Avoid drinking alcohol. Avoid sitting or lying for a long time without moving your legs. If you have surgery or you are hospitalized, ask about ways to prevent blood clots. These may include taking frequent walks or using anticoagulants. Stay at a healthy weight. If you are a woman who is older than age 35, avoid unnecessary use of medicines that contain estrogen, such as some control pills. Do not use any products that contain nicotine or tobacco, such as cigarettes and e-cigarettes. This is especially important if you take estrogen medicines. If you need help quitting, ask your health care provider. Contact a health care provider if: You miss a dose of your blood thinner. Your menstrual period is heavier than usual. You have unusual bruising. Get help right away if: You have: ? New or increased pain, swelling, or redness in an arm or leg. ? Numbness or tingling in an arm or leg. ? Shortness of breath. ? Chest pain. ? A rapid or irregular heartbeat. ? A severe headache or confusion. ? A cut that will not stop bleeding. There is blood in your vomit, stool, or urine. You have a serious fall or accident, or you hit your head. You feel light-headed or dizzy. You cough up blood. These symptoms may represent a serious problem that is an emergency. Do not wait to see if the symptoms will go away. Get medical help right away. Call your local emergency services (911 in the [place] Do not drive yourself to the hospital. Summary Deep vein thrombosis (DVT) is a condition in which a blood clot forms in a deep vein, such as a lower leg, thigh, or arm vein. Symptoms can include swelling, warmth, pain, and redness in your leg or arm. This condition may be treated with a blood thinner (anticoagulant medicine), medicine that is injected to dissolve blood clots,compression stockings, or surgery. If you are prescribed blood thinners, take them exactly as told. This information is not intended to replace advice given to you by your health care provider. Make sure you discuss any questions you have with your health care provider. Document Released: 05/15/2006 Document Revised: 04/27/2018 Document Reviewed: 10/13/2017 [employer] Patient Education 2020 [employer] How To Use an Incentive Spirometer An incentive spirometer is a tool that measures how well you are filling your lungs with each breath. Learning to take long, deep breaths using this tool can help you keep your lungs clear and active. This may help to reverse or lessen your chance of developing breathing (pulmonary) problems, especially infection. You may be asked to use a spirometer: After a surgery. If you have a lung problem or a history of smoking. After a long period of time when you have been unable to move or be active. If the spirometer includes an indicator to show the highest number that you have reached, your health care provider or respiratory therapist will help you set a goal. Keep a list (log) of your progress as told by your health care provider. What are the risks? Breathing too quickly may cause dizziness or cause you to pass out. Take your time so you do not get dizzy or light-headed. If you are in pain, you may need to take pain medicine before doing incentive spirometry. It is harder to take a deep breath if you are having pain. How to use your incentive spirometer 1. Sit up on the edge of your bed or on a chair. 2. Hold the incentive spirometer so that it is in an upright position. 3. Before you use the spirometer, breathe out normally. 4. Place the mouthpiece in your mouth. Make sure your lips are closed tightly around it. 5. Breathe in slowly and as deeply as you can through your mouth, causing the piston or the ball to rise toward the top of the chamber. 6. Hold your breath for 3 5 seconds, or for as long as possible. If the spirometer includes a lean coach indicator, use this to guide you in breathing. Slow down your breathing if the indicator goes above the marked areas. 7. Remove the mouthpiece from your mouth and breathe out normally. The piston or ball will return to the bottom of the chamber. 8. Rest for a few seconds, then repeat the steps 10 or more times. Take your time and take a few normal breaths between deep breaths so that you do not get dizzy or light-headed. Do this every 1 2 hours when you are awake. 9. If the spirometer includes a goal marker to show the highest number you have reached (best effort), use this as a goal to work toward during each repetition. 10. After each set of 10 deep breaths, cough a few times. This will help to make sure that your lungs are clear. If you have an incision on your chest or abdomen from surgery, place a pillow or a rolled-up towel firmly against the incision when you cough. This can help to reduce pain from coughing. General tips When you become able to get out of bed, walk around often and continue to cough to help clear your lungs. Keep using the incentive spirometer until your health care provider says it is okay to stop using it. If you have been in the hospital, you may be told to keep using the spirometer at home. Contact a health care provider if: You are having difficulty using the spirometer. You have trouble using the spirometer as often as instructed. Your pain medicine is not giving enough relief for you to use the spirometer as told. You have a fever. You develop shortness of breath. Get help right away if: You develop a cough with bloody mucus from the lungs (bloody sputum). You have fluid or blood coming from an incision site after you cough. Summary An incentive spirometer is a tool that can help you learn to take long, deep breaths to keep your lungs clear and active. You may be asked to use a spirometer after a surgery, if you have a lung problem or a history of smoking, or if you have been inactive for a long period of time. Use your incentive spirometer as instructed every 1 2 hours while you are awake. If you have an incision on your chest or abdomen, place a pillow or a rolled-up towel firmly against your incision when you cough. This will help to reduce pain. This information is not intended to replace advice given to you by your health care provider. Make sure you discuss any questions you have with your health care provider. Document Released: 09/25/2007 Document Revised: 06/07/2018 Document Reviewed: 03/28/2018 [employer] Patient Education 2020 [employer] Laparoscopic Cholecystectomy, Care After This sheet gives you information about how to care for yourself after your procedure. Your doctor may also give you more specific instructions. If you have problems or questions, contact your doctor. Follow these instructions at home: Care for cuts from surgery (incisions) Follow instructions from your doctor about how to take care of your cuts from surgery. Make sure you: ? Wash your hands with soap and water before you change your bandage (dressing). If you cannot use soap and water, use hand marshmallow maker. ? Change your bandage as told by your doctor. ? Leave stitches (sutures), skin glue, or skin tape (adhesive) strips in place. They may need to stay in place for 2 weeks or longer. If tape strips get loose and curl up, you may trim the loose edges. Do not remove tape strips completely unless your doctor says it is okay. Do not take baths, swim, or use a hot tub until your doctor says it is okay. Ask your doctor if you can take showers. You may only be allowed to take sponge baths for bathing. Check your surgical cut area every day for signs of infection. Check for: ? More redness, swelling, or pain. ? More fluid or blood. ? Warmth. ? Pus or a bad smell. Activity Do not drive or use heavy machinery while taking prescription pain medicine. Do not lift anything that is heavier than 10 lb (4.5 kg) until your doctor says it is okay. Do not play contact sports until your doctor says it is okay. Do not drive for 24 hours if you were given a medicine to help you relax (sedative). Rest as needed. Do not return to work or school until your doctor says it is okay. General instructions Take pwui-kgr-glidemj and prescription medicines only as told by your doctor. To prevent or treat constipation while you are taking prescription pain medicine, your doctor may recommend that you: ? Drink enough fluid to keep your pee (urine) clear or pale yellow. ? Take eqtk-yvc-wymycec or prescription medicines. ? Eat foods that are high in fiber, such as fresh fruits and vegetables, whole grains, and beans. ? Limit foods that are high in fat and processed sugars, such as fried and sweet foods. Contact a doctor if: You develop a rash. You have more redness, swelling, or pain around your surgical cuts. You have more fluid or blood coming from your surgical cuts. Your surgical cuts feel warm to the touch. You have pus or a bad smell coming from your surgical cuts. You have a fever. One or more of your surgical cuts breaks open. Get help right away if: You have trouble breathing. You have chest pain. You have pain that is getting worse in your shoulders. You faint or feel dizzy when you stand. You have very bad pain in your belly (abdomen). You are sick to your stomach (nauseous) for more than one day. You have throwing up (vomiting) that lasts for more than one day. You have leg pain. This information is not intended to replace advice given to you by your health care provider. Make sure you discuss any questions you have with your health care provider. Document Released: 02/21/2009 Document Revised: 04/27/2018 Document Reviewed: 10/31/2016 [employer] Patient Education 2020 [employer]. How to Use Cold Therapy Cold therapy, or cryotherapy, is a treatment that uses cold temperatures to treat an injury or medical condition. It includes using cold packs or ice packs to reduce pain and swelling. Only use cold therapy if your doctor says it is okay. What are the risks? Generally, cold therapy is a safe treatment. However, it is not safe for: People who are not able to say they are in pain. These include small children and people who have memory problems. People who have certain conditions, such as: ? A problem in the vessels that slows blood flow to the fingers and toes (Raynaud's syndrome). ? Feeling very cold easily (cold hypersensitivity). ? Lack of feeling in the area being iced. Cold therapy may not be safe for people who have other conditions. Do not use it without talking to your doctor if you have: A heart condition. High blood pressure. Open or healing wounds. An infection. Pain and swelling in your joints (rheumatoid arthritis). Poor blood flow in the body. Diabetes. Certain skin conditions. How can I make a cold pack? When using a cold pack at home to reduce pain and swelling, you can use: A silica gel cold pack that has been left in the freezer. You can buy this online or in stores. A sealable plastic bag that has been filled with crushed ice. A washcloth or paper towels soaked in cold (or ice) water. A plastic bag of frozen vegetables. Throw them away when you are finished using them as a cold pack. Supplies needed: A cold pack. A towel. This can be dry or damp, based on what you like. How to use cold therapy 1. Have your cold pack ready. 2. Place a towel between the cold pack and your skin. You may also wrap the cold pack in a towel. 3. Put the cold pack on the affected area. Keep it on for no more than 20 minutes at a time. 4. Check your skin after 5 minutes to make sure that there is no damage to the area. Check for: White spots on your skin. Your skin may look blotchy or mottled. Skin that looks blue or pale. Skin that feels waxy or hard. 5. Repeat these steps as many times each day as told by your doctor. Always use a towel to avoid direct contact with your skin. Contact a doctor if: You start to have white spots on your skin. This may give your skin a blotchy or mottled look. Your skin turns blue or pale. Your skin becomes waxy or hard. Your swelling gets worse. Summary Cold therapy, or cryotherapy, is used to treat an injury or other conditions. It includes using cold packs or ice packs to reduce pain and swelling. Cold therapy is not safe for people who are not able to say they are in pain. When using cold packs or ice packs, always place a towel between the cold source and your skin. Check your skin after 5 minutes of icing it. This is to make sure that there is no skin damage. Contact your doctor if you notice changes in your skin or your swelling gets worse. This information is not intended to replace advice given to you by your health care provider. Make sure you discuss any questions you have with your health care provider. Document Released: 10/31/2008 Document Revised: 02/11/2019 Document Reviewed: 02/11/2019 [employer] Patient Education 2020 [employer] Additional Information VACCINATE! IT SAVES LIVES! Members of the community who have not yet received the COVID-19 vaccine and would like to receive it can visit one of [facility] vaccine clinics. There are many vaccine clinic locations within the State. For locations and available times, please visit [email or web address].[place] .gov/. It is important to note that some COVID mobile vaccine clinics are held outdoors and may be canceled in rainy or stormy conditions. To learn more about pediatric vaccinations (ages 5-11), we invite you to visit the [facility] webpage. [email or web address] [email or web address] -[email or web address] To learn more about the COVID-19 vaccine, we invite you to visit the CDC website for a list of frequently asked questions.https://www.cdc.gov/coron avirus/2019-ncov/vaccines/faq.html [email or web address] Patient Portal Access Instructions: Stay connected with your healthcare team and access your personal medical information anytime with the [email or web address] Patient Portal. Please follow the directions below to create your [email or web address] account: 1.Access the email account you provided upon registration to the hospital/physician office.2.Look for an invitation email from [facility].3.Open the email and access the invitation link: Accept Invitation to [email or web address].4.Fill in the required eaton to create your account. To access your account, visit [email or web address]. Click the blue button labeled Access Patient Portal and then log in with the username and password that you created in the steps above. You will be able to view your test results, lab results, a summary of your visits, upcoming appointments and more. There is also a convenient messaging option where you can send secure messages to your provider. In addition, you will have the ability to download any documents or summaries to your computer and/or send the information securely to a physician. Remember that your healthcare information is confidential, so carefully consider who you will allow to register on the [email or web address] Patient Portal for access to your information. You can also access the [email or web address] Patient Portal on the [employer] tiffany. Simply click on Patient Portal and then log into your account. If you would like to receive a full copy of your medical records, please contact the [facility] Medical Records Department by calling [phone], Monday through Monday between 8 a.m. and 4:30 p.m. HOW TO SAFELY DISPOSE OF PRESCRIPTION MEDICATIONS Please use one of the following methods to safely dispose of your unused medications. 1.Use a drug disposal kit: the drug disposal pouch allows you to safely discard your old and unused drugs. Ask your nurse to give you one when you are discharged.2.Visit a local take-back location: Many local pharmacies and police departments have programs that collect old and unwanted prescription drugs. Call your local pharmacy or go to [email or web address]/7T6On4e to find one close to you.3.Make use of household items: Use cat litter or old coffee grounds to dispose medications if other options are not available. Mix your drugs with these household products, seal them in an airtight container and throw it into the garbage. Call [facility]: [phone] to be sure your drugs can be disposed of in this way. Some medicines may require a different approach.4.Never flush your medications down the toilet. IF YOU HAVE BEEN PRESCRIBED AN OPIOID FOR PAIN If you have been prescribed an opioid (such as hydrocodone, oxycodone or morphine), it is critical to understand the possible side effects and risks of opioid pain medications. Even when taken as directed, opioids can have several side effects including: Tolerance, meaning you might need to take more of a medication for the same pain relief. Nausea, vomiting and/or constipation. Sleepiness, dizziness, dry mouth, confusion, depression or itching. Physical dependence, meaning you have withdrawal symptoms when a medication is stopped, can develop within a few days. KNOW YOUR RESPONSIBILITIES It is important to know exactly how much and how often to take the opioid pain medications you are prescribed. Never take opioids in higher amounts or more often than prescribed. Do not combine opioids with alcohol or other drugs that cause drowsiness, such as benzodiazepines, also known as benzos, including diazepam and alprazolam, muscle relaxants or sleep aids. Never sell or share prescription opioids. This is illegal. Store opioids in a secure place and out of reach of others (including children, family, friends and visitors). The last page of this document has been signed and retained as a CHART COPY. Signatures Patient Education Materials General Anesthesia, Adult, Care After How to Use Compression Stockings Deep Vein Thrombosis How to Use an Incentive Spirometer Laparoscopic Cholecystectomy, Care After, Hdxh-eq-Sitf How to Use Cold Therapy, Fnwi-hg-Srok Medication Leaflets [place] 325- 5 mg oral tablet, Exparel My discharge plan and instructions have been reviewed and explained to me and I,DEONNA DE LEÓN understand my current condition and have read and understand these discharge instructions. I have received a written copy of the plan/instructions. If I have questions, I am aware that I should contact my doctor. 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 Signature: ____ Date/Time: Relationship to Patient: __ Witness Name/Signature: Date/Time: [facility] Progress note No data available for this section [facility] Chief Complaint and Reason for Visit Chief Complaint ABD PAIN Advance Directives No Advanced Directives Records Found Advance Directive Response Recorded Date/ Time Living Will No December 28, 2021 9:45pm Power of Lead [employer] No December 28 9:45pm Summary Purpose Family History No Family History Records Found No data available for this section No data available for this section No data available for this section No Family History Records Found No data available for this section No data available for this section No data available for this section No data available for this section No Family History Records Found Additional Source Comments Goals (unrecognized section and content) Goals may be documented in a n alternate section No data available for this section No data available for this section No data available for this section No data available for this section No data available for this section No data available for this section No data available for this section (unrecognized sect ion and content) No Status Records FoundNo Status Records FoundNo Status Records Found INFORMATION SOURCE (unrecogn ized section and content) DATE CREATED AUTHOR 01/01/2022 [facility] DATE CREATED AUTHOR AUTHOR'S ORGANIZ ATION 06/25/2023 [facility] ([place]) DATE CREATED AUTHOR AUTHOR'S ORGANIZ ATION 02/12/2025 [facility] Patient Care team informatio n (unrecognized section and content) Care Team Personnel Name: LILIANA CONNER MD Position: P4 Physician - Primary Care Member Role: Primary Care Physician Address: Address: [address] [place] [address]- Care Team Related Persons Name: BRIAN DE LEÓN Address: Home [address] Care Team Personnel Name: LILIANA CONNER MD Position: P4 Physician - Primary Care Member Role: Primary Care Physician Address: Address: [address] [place] [address] Care Team Related Persons Name: BRINA DE LEÓN Address: Home [address] [address] [place] Care Team Personnel Name: LILIANA CONNER MD Position: P4 Physician - Primary Care Member Role: Primary Care Physician Address: Address: [address] [place] [address] Care Team Related Persons Name: BRIAN DE LEÓN Address: Home [address] Care Team Personnel Name: LILIANA CONNER MD Position: P4 Physician - Primary Care Member Role: Primary Care Physician Address: [address] Telecom: Care Team Related Persons Name: BRIAN DE LEÓN Care Team Personnel Name: LILIANA CONNER MD Position: P4 Physician - Primary Care Member Role: Primary Care Physician Address: [address] Telecom: Care Team Related Persons Name: BRIAN DE LEÓN Care Team Personnel Name: KENNETH MACDONALD MD Position: P4 Physician - General Surgery Member Role: Surgeon Address: [address] [facility] [place] [address]- [place] Telecom: Name: LILIANA CONNER MD Position: P4 Physician - Primary Care Member Role: Primary Care Physician Address: [address] [place], [place] [address] Telecom: Care Team Related Persons Name: BRIAN DE LEÓN Care Team Personnel Name: KENNETH MACDONALD MD Position: P4 Physician - General Surgery Member Role: Surgeon Address: [address] [place] [address]- [facility] Telecom: Name: LILIANA CONNER MD Position: P4 Physician - Primary Care Member Role: Primary Care Physician Address: [address] [place], [place] [address] Telecom: Care Team Related Persons Name: BRIAN DE LEÓN FOR RECORDS PERTAINING TO PATIENTS WHO ARE OR HAVE BEEN ENROLLED IN A CHEMICAL DEPENDENCY/SUBSTANCEABUSE PROGRAM, SOME INFORMATION MAY BE OMITTED. This clinical summary was aggregated from multiple sources. Caution should be exercised in using it in the provision of clinical care. This summary normalizes information from multiple sources, and as a consequence, information in this document may materially change the coding, format and clinical context of patient data. In addition, data may be omitted in some cases. CLINICAL DECISIONS SHOULD BE BASED ON THE PRIMARY CLINICAL RECORDS. [employer] provides no warranty or guarantee of the accuracy or completeness of information in this document.
[2025-02-20] MEDS: 0.9% Normal Saline (1000mL) 1,000 ML 250 ML IV (20:51)
--- NOTE | 2025-02-20 20:55 | CT_ITS ---
PROCEDURE: ABDOMEN/PELVIS WITHOUT CONT 02/20/2025 REASON FOR EXAM: KIDNEY STONE TECHNIQUE: Procedure Code: CTABDPEL Modality: CT Procedure: ABDOMEN/PELVIS WITHOUT CONT Noncontrast technique limits evaluation of the abdominal and pelvic viscera. Coronal and Sagittal reconstruction series were provided. One or more dose reduction techniques were used (e.g., Automated exposure control, adjustment of the mA and/or kV according to patient size, use of iterative reconstruction technique). RADIATION DOSE SUMMARY: CTDlvol: 15 mGy DLP: 911 mGycm COMPARISON: 12/28/2021. FINDINGS: The peripheral soft tissues are unremarkable. Mild degenerative changes of the spine. Mild atherosclerosis. Normal caliber abdominal aorta. Left adrenal 22 mm adenoma. Left adrenal 14 mm adenoma. Right adrenal 16 mm adenoma. Left distal ureter 2 mm calculus. Left ureterovesicular junction 5 x 2 mm calculus. Left moderate hydroureteronephrosis. No other renal calculi. No right hydroureteronephrosis. The liver, pancreas, and spleen are unremarkable. Normal caliber large and small bowel without surrounding inflammatory changes. Surgically absent gallbladder. CT/Abdomen/Pelvis without Cont IMPRESSION: Left distal ureteral 2 mm calculus and left ureterovesicular junction 5 x 2 mm calculus with moderate left hydroureteronephrosis No right-sided hydroureteronephrosis No additional renal calculi Two left adrenal adenomas measuring 22 mm and 14 mm and one right adrenal adeno ma measuring 16 mm Reading Location: [id number]
[2025-02-20 21:34] VITALS: BP 129/95; PULSE 69; RESP 16; O2SAT 96
--- NOTE | 2025-02-20 21:50 | EX.ED.DYSGE1 ---
HPI History of Present Illness Chief Complaint: Flank Pain Detail of Chief Complaint: Abrupt left flank pain radiating anteriorly with frequency and urgency. Informant: patient Onset/Context/Timing Onset: Yesterday Context: Sudden Onset Timing: Continuous and Waxes and wanes Quality: Colicky pain like prior stones Location: Left Current Severity: Mild Maximum Severity: Severe Worsened by: Nothing Relieved by: Nothing Associated Symptoms Associated Symptoms: Nausea, frequency and urgency urgency Narrative Narrative: Patient is a 49-year-old male. He has history of kidney stones. Presents with abrupt onset of left flank pain that radiates anteriorly to the suprapubic area. He denies fever or chills. He denies vomiting or diarrhea. He denies blood in his urine. He does endorse being bloated. He denies cardiac or respiratory symptoms. There is no history of trauma. Prior similar symptoms: Yes (Ureterolithiasis with obstruction) Recent Illness/Hospitalization: No [facility] Medical History Kidney stones Home Medications ?Medication ?Instructions ?Recorded ?Last Taken ?Type cephalexin 500 mg capsule 500 mg PO Q12 #14 caps 05/05/19 Unknown Rx ibuprofen 600 mg tablet 600 mg PO Q6H PRN PRN 05/05/19 Unknown Rx Pain/Inflammation #20 tabs ondansetron 4 mg disintegrating 4 mg PO Q8H PRN PRN Nausea #10 tabs 05/05/19 Unknown Rx tablet tamsulosin 0.4 mg capsule 0.4 mg PO DAILY #7 caps 05/05/19 Unknown Rx hydrocodone-acetaminophen 5-325mg 1 tab PO Q6H PRN pain 3 days #10 12/28/21 Unknown Rx 5mg-325mg tabs ondansetron 4 mg disintegrating 4 mg PO Q8H PRN nausea and 12/28/21 Unknown Rx tablet vomiting #10 tabs hydrocodone-acetaminophen 5-325mg 1 tab PO Q6H PRN PRN Pain 3 days 02/20/25 Unknown Rx 5mg-325mg #10 TABLETS naproxen 500 mg tablet 500 mg PO BID #14 tabs 02/20/25 Unknown Rx ondansetron 4 mg disintegrating 4 mg PO Q8H PRN PRN Nausea #10 tabs 02/20/25 Unknown Rx tablet Allergy/AdvReac Type Severity Reaction Status Date / Time No Known Allergies Allergy Verified 02/20/25 19:36 Social History Smoking Status: Current every day smoker tobacco type: cigarettes ROS ROS ED Constitutional Constitutional ED: Denies chills, fever(s), subjective or sweats ENT ENT ED: Denies rhinorrhea or sore throat Cardiovascular Cardiovascular: Denies chest pain Respiratory/Chest Respiratory/Chest: Denies cough, dyspnea or dyspnea on exertion Gastrointestinal Gastrointestinal: Reports abdominal pain and nausea; Denies constipation, diarrhea, melena or vomiting Genitourinary Genitourinary ED: Reports urinary frequency; Denies dysuria Musculoskeletal Musculoskeletal: Reports other Details: Left flank pain. ; Denies arthralgias, back pain or neck pain Integumentary Denies rash Neurologic Neurologic: Denies paresthesias or weakness Endocrine Endocrinology: Denies cold intolerance or heat intolerance Hematologic/Lymphatic Hematologic/Lymphatic: Reports systems reviewed and no addt'l complaints, except as documented EXAM Physical Exam Const Vital Signs: 02/20/25 19:34 02/20/25 21:34 Temperature 98.6 F Temperature Source Temporal Pulse Rate 73 69 Respiratory Rate 16 16 Blood Pressure 141/90 H 129/95 H Blood Pressure Mean 107 106 Pulse Ox 97 96 Oxygen Delivery Method Room Air Room Air Positive well nourished and well developed Constitutional Narrative: Patient appears uncomfortable. Blood pressure slightly elevated. BMI is 34.2. General Appearance ED: well developed HEENT Reports moist mucous membranes HEENT Narrative: Head is atraumatic normocephalic. Ears normal. Nares patent. Eyes PERRL and EOMs intact bilaterally General Eye ED: Negative for pale conjunctiva or scleral icterus Chest Wall inspection of chest normal and palpation of chest normal Resp normal respiratory effort and clear to auscultation bilaterally Cardio regular rate, regular rhythm, S1 normal heart sound, S2 normal heart sound and no murmurs GI normal to inspection, nondistended, normoactive bowel sounds, non-tender and no masses; Negative for non-distended or hepatosplenomegaly Auscultation: hypoactive bowel sounds Palpation: soft Back/Spine no CVA tenderness Extremity normal to inspection Neuro oriented x3 and CN's II-XII intact bilaterally Sensorium / Orientation: alert Skin no rashes or lesions noted, no wounds and skin turgor normal MDM MDM MDM Narrative Medical decision making narrative: Patient presents with flank pain. Suspect this is due to obstructing proximal ureter renal stone versus ureteral stone. Nurse protocol was entered. I ordered pain medicine for him as well as CT. Agree with the labs that were ordered. Need to assess renal function, white count and urine to evaluate for infection. Prior ED records were reviewed. Patient was transferred last time since he was no urologist on-call. History & Record Review Additional record(s) reviewed:: Prior ED visit and Prior labs Lab Data Attestation: I reviewed the patient's lab results. Lab results narrative: White count is normal. Electrolyte panel is remarkable elevated glucose with elevated BUN to creatinine ratio. CO2 anion gap is normal. Her renal function is normal. Urinalysis reveals hematuria. There is evidence of calcium oxalate stones. There is no bacteria or pyuria. Labs: Laboratory Results - last 24 hr 02/20/25 02/20/25 19:43 19:49 WBC 10.1 RBC 5.40 Hgb 16.8 H Hct 47.4 MCV 87.8 MCH 31.1 MCHC 35.4 RDW Std Deviation 42.7 RDW Coeff of Brennan 13.4 Plt Count 276 MPV 10.4 Immature Gran % (Auto) 0.500 Neut % (Auto) 62.6 Lymph % (Auto) 22.2 [place] % (Auto) 10.8 H Eos % (Auto) 2.9 Baso % (Auto) 1.0 Absolute Neuts (auto) 6.3 Absolute Lymphs (auto) 2.24 Nucleated RBC % 0 Sodium 137 Potassium 4.1 Chloride 105 Carbon Dioxide 19.7 L Anion Gap 12 BUN 20 H Creatinine 0.86 Estim Creat Clear Calc 117.81 Est GFR (MDRD) Non-Af 107 BUN/Creatinine Ratio 23.6 H Glucose 144 H Calcium 9.4 Total Bilirubin 0.35 AST 25 ALT 41 Alkaline Phosphatase 82 Total Protein 7.2 Albumin 4.7 Globulin 2.5 Albumin/Globulin Ratio 1.9 Urine Color Yellow Urine Clarity Clear Urine pH 5.0 Ur Specific [place] 1.030 Urine Protein 30 H Urine Glucose (UA) Normal Urine Ketones Negative Urine Occult Blood 150 H Urine Nitrite Negative Urine Bilirubin Negative Urine Urobilinogen 1 H Ur Leukocyte Esterase 25 H Urine RBC 5-10 SEEN Urine WBC 0-5 SEEN Ur Squamous Epith Cells 0-5 SEEN Calcium Oxalate Crystal 1+ Urine Bacteria 0 SEEN Urine Mucus 0 SEEN Radiography Diagnostic Testing: Clinical Impression(s) from Imaging Studies Abdomen/Pelvis CT 02/20/25 20:55 IMPRESSION: Left distal ureteral 2 mm calculus and left ureterovesicular junction 5 x 2 mm calculus with moderate left hydroureteronephrosis No right-sided hydroureteronephrosis No additional renal calculi Two left adrenal adenomas measuring 22 mm and 14 mm and one right adrenal adenoma measuring 16 mm Reading Location: [facility] CT reveals evidence of dilation of the ureter. There is a stone noted in the bladder. Awaiting formal read by radiologist, 2151. Treatment and Re-Evaluation :: Patient was informed of results. He was informed of the radiologist interpretation of the CAT scan as well. He was discharged to home on antiemetic, NSAID and opiate analgesic and he was referred to urology Discharge Plan Triage Chief Complaint: Flank Pain ED Provider: Chu Rdz Dx/Rx/DC Orders Clinical Impression: Hydronephrosis with urinary obstruction due to ureteral calculus, History of BPH, Elevated blood-pressure reading without diagnosis of hypertension Instructions: ED Hypertension, To Be Confirmed, ED Kidney Stone with Pain Prescriptions: New hydrocodone-acetaminophen 5-325 mg tablet 1 tab PO Q6H PRN PRN (Reason: Pain) 3 Days Qty: 10 0RF ondansetron 4 mg tablet,disintegrating 4 mg PO Q8H PRN PRN (Reason: Nausea) Qty: 10 0RF naproxen 500 mg tablet 500 mg PO BID Qty: 14 0RF No Action cephalexin 500 MG capsule 500 mg PO Q12 Qty: 14 0RF tamsulosin 0.4 MG capsule 0.4 mg PO DAILY Qty: 7 0RF ondansetron 4 MG tablet 4 mg PO Q8H PRN PRN (Reason: Nausea) Qty: 10 0RF ibuprofen 600 MG tablet 600 mg PO Q6H PRN PRN (Reason: Pain/Inflammation) Qty: 20 0RF hydrocodone-acetaminophen 5-325 mg tablet 1 tab PO Q6H PRN (Reason: pain) 3 Days Qty: 10 0RF ondansetron 4 mg tablet,disintegrating 4 mg PO Q8H PRN (Reason: nausea and vomiting) Qty: 10 0RF Primary Care Provider: Rich Myers Referrals: Robby Tony MD [Med Staff - Active Staff, Urology] - 1 Week Rich Myers MD [Primary Care Provider, Family Practice] - 1 Week Activity Restrictions/Additional Instructions: 1. Return if you have a temperature greater than 100, shaking chills, vomiting unable to eat or drink anything, pain that is not controlled by the pain medicine. 2. Your blood pressure is elevated. You should have this rechecked by your physician Dr. Mike Myers Print Language: [place] Disposition Disposition: Home, Self Care
[2025-02-20 22:28] VITALS: BP 129/98; PULSE 73; RESP 16; TEMP 36.9; O2SAT 99
== END 2025-02-20 22:30 | disposition home or self-care (01) ==
PROVIDERS: Emergency Provider Emergency Medicine; PCP Family Medicine; Visit Provider Emergency Medicine
DX: N13.2 Hydronephrosis with renal and ureteral calculous obstruction (principal); N40.0 Benign prostatic hyperplasia without lower urinary tract symptoms; R03.0 Elevated blood-pressure reading, without diagnosis of hypertension; R73.9 Hyperglycemia, unspecified; F17.210 Nicotine dependence, cigarettes, uncomplicated; Z79.899 Other long term (current) drug therapy
CPT/HCPCS: 74176; 80053; 81001; 85025; 96361; 96374; 96375; 99283; A4216; J2405